=== PATIENT | male | born 1940 | race Caucasian/White ===

== ENCOUNTER → 2018-01-01 09:21 | Outpatient (CLI) | payer MEDICARE, SELFPAY ==
--- NOTE | 2018-01-01 09:32 | RAD_ITS ---
STUDY: X-RAY - RIGHT KNEE REASON FOR EXAM: Male, 77 years old. Right knee swelling. TECHNIQUE: 3 view(s) of the knee. COMPARISON: None. FINDINGS: Normal visualized distal femur. Normal visualized proximal tibia and fibula. Normal proximal tibiofibular articulation. There is moderate degenerative arthrosis of the medial femorotibial compartment with moderate joint space narrowing. . Normal patellofemoral articulation. There are faint calcifications projecting over the lateral femoral tibial compartment consistent with underlying chondrocalcinosis. There is soft tissue fullness overlying the patella and patellar tendon. There are peripheral calcifications. RAD/Knee 3 Views IMPRESSION: Atherosclerosis. Chondrocalcinosis. Electronically Signed: Sravanthi Garcia MD at 18:54 EDT Tel , Service support ,
== END ==
PROVIDERS: Family Provider Family Medicine; PCP Family Medicine; Visit Provider Family Medicine
DX: M25.461 Effusion, right knee (principal)
CPT/HCPCS: 73562

== ENCOUNTER → 2018-01-02 09:04 | Outpatient (CLI) | payer MEDICARE, SELFPAY ==
[2018-01-02 10:53] LABS: Anion Gap 5 (5-15); BUN 17 mg/dL (7-18); BUN/Creat Ratio 13.2 RATIO (10-20); Calcium,Total 8.9 mg/dL (8.5-10.1); Chloride 107 mmol/L (98-107); Creatinine, Serum 1.29 mg/dL (0.70-1.30); EST Glomerular Filtration Rate 57 mL/min (>60); Est Glom Filt Rate - Afr Amer 69 mL/min (>60); Glucose 89 mg/dL (74-106); PSA,Total - Annual Screen 2.71 ng/mL (0.00-4.00); Potassium 4.1 mmol/L (3.5-5.1); Sodium Level 140 mmol/L (136-145)
== END ==
PROVIDERS: Family Provider Family Medicine; PCP Family Medicine; Visit Provider Family Medicine
DX: Z00.00 Encounter for general adult medical examination without abnormal findings (principal); Z12.5 Encounter for screening for malignant neoplasm of prostate
CPT/HCPCS: 36415; 80048; 82306; 84153; G0103

== ENCOUNTER → 2018-03-14 16:48 | Outpatient (CLI) | payer MEDICARE, SELFPAY ==
[2018-03-14 18:18] LABS: Anion Gap 8 (5-15); BUN 23 mg/dL (7-18); BUN/Creat Ratio 16.7 RATIO (10-20); Calcium,Total 8.9 mg/dL (8.5-10.1); Chloride 107 mmol/L (98-107); Creatinine, Serum 1.38 mg/dL (0.70-1.30); EST Glomerular Filtration Rate 53 mL/min (>60); Est Glom Filt Rate - Afr Amer 64 mL/min (>60); Glucose 90 mg/dL (74-106); PSA,Total - Annual Screen 2.66 ng/mL (0.00-4.00); Potassium 4.1 mmol/L (3.5-5.1); Sodium Level 140 mmol/L (136-145)
== END ==
PROVIDERS: Family Provider Family Medicine; PCP Family Medicine; Visit Provider Family Medicine
DX: R35.8 Other polyuria (principal); Z12.5 Encounter for screening for malignant neoplasm of prostate
CPT/HCPCS: 36415; 80048; 84153; G0103

== ENCOUNTER → 2018-10-31 | Outpatient (CLI) | payer MEDICARE, SELFPAY ==
[2018-10-31 12:44] LABS: ALB/GLOB Ratio 1.4 RATIO (0.9-2.4); AST(SGOT) 22 U/L (15-37); Alanine Aminotransfer ALT/SGPT 22 U/L (16-61); Alkaline Phosphatase 66 U/L (45-117); Anion Gap 5 (5-15); BUN 18 mg/dL (7-18); BUN/Creat Ratio 15.1 RATIO (10-20); Calcium,Total 8.7 mg/dL (8.5-10.1); Chloride 107 mmol/L (98-107); Cholesterol 194 mg/dL (200); Creatinine, Serum 1.19 mg/dL (0.70-1.30); EST Glomerular Filtration Rate 63 mL/min (>60); Est Glom Filt Rate - Afr Amer 76 mL/min (>60); Globulin 2.9 g/dL (2.2-4.2); Glucose 80 mg/dL (74-106); High Density Lipoprotein 64 mg/dL; Potassium 4.5 mmol/L (3.5-5.1); Protein, Total 6.9 g/dL (6.4-8.2); Sodium Level 142 mmol/L (136-145); Triglycerides 54 mg/dL; Very Low Density Lipoprotein 11 mg/dL (5-40)
== END | disposition home or self-care (01) ==
LOC: MFPLAB 10:28
PROVIDERS: Family Provider Family Medicine; PCP Family Medicine; Referring Provider Family Medicine; Visit Provider Family Medicine
DX: Z00.00 Encounter for general adult medical examination without abnormal findings (principal)
CPT/HCPCS: 36415; 80053; 80061

== ENCOUNTER → 2019-12-17 09:07 | Outpatient (CLI) | payer MEDICARE, SELFPAY ==
[2019-12-17 10:36] LABS: Anion Gap 4 (5-15); BUN 16 mg/dL (7-18); BUN/Creat Ratio 14.4 RATIO (10-20); Chloride 109 mmol/L (98-107); Cholesterol 196 mg/dL (200); Creatinine, Serum 1.11 mg/dL (0.70-1.30); EST Glomerular Filtration Rate 68 mL/min (>60); Est Glom Filt Rate - Afr Amer 82 mL/min (>60); Glucose 91 mg/dL (74-106); High Density Lipoprotein 58 mg/dL; PSA,Total - Annual Screen 2.42 ng/mL (0.00-4.00); Sodium Level 141 mmol/L (136-145); Triglycerides 81 mg/dL; Very Low Density Lipoprotein 16 mg/dL (5-40)
== END ==
PROVIDERS: PCP Family Medicine; Referring Provider Family Medicine; Visit Provider Family Medicine
DX: Z00.00 Encounter for general adult medical examination without abnormal findings (principal); N52.9 Male erectile dysfunction, unspecified; N40.0 Benign prostatic hyperplasia without lower urinary tract symptoms; E55.9 Vitamin D deficiency, unspecified; Z12.5 Encounter for screening for malignant neoplasm of prostate
CPT/HCPCS: 36415; 80048; 80061; 84153; 84403; G0103

== ENCOUNTER 2020-12-07 18:31 | Emergency (ER) | payer MEDICARE, SELFPAY ==
[2020-12-07] VITALS (7 sets, daily range): BP systolic 153–201; BP diastolic 66–173; PULSE 60–78; RESP 15–23; TEMP 36–36.1; O2SAT 96–99; BMI 23.7
--- NOTE | 2020-12-07 18:35 | CM.ED ---
SOCIAL WORK Stroke Alert Responded to Stroke Alert. Patient in CT. Met with patient in room. Emotional support and education provided. This worker to remain available for needs. Shilpi Correa, [employer], AIRPORT ELECTRICIAN
--- NOTE | 2020-12-07 18:35 | CT_ITS ---
STUDY: CT HEAD STROKE PROTOCOL W/O CONTRAST INJECTION REASON FOR EXAM: Male, 80 years old. Neuro deficit, acute, stroke suspected RADIATION DOSAGE (If Supplied By Facility): CTDIvol = ( ) mGy, DLP = ( ) mGycm TECHNIQUE: Transaxial CT imaging of the brain was performed without administration of intravenous contrast material. Individualized dose optimization techniques were used for this CT. COMPARISON: No relevant priors. FINDINGS: Normal soft tissue structures. Normal calvarium. 15 x 12 x 10 mm acute hemorrhage of the left occipital lobe intraparenchymal. There are areas of decreased attenuation within the white matter tracts of the supratentorial brain, consistent with microvascular disease changes. Normal basal ganglia and thalami. Normal brainstem. Normal cerebellum. There are no findings of an acute ischemic infarction. CT/STROKE Brain/Head without Cont IMPRESSION: 15 x 10 x 12 mm acute intraparenchymal hemorrhage of the left occipital lobe. Otherwise chronic small vessel ischemic changes without other acute pulmonary findings. N.B. : The above information has been verbally conveyed by Xena Palma MD to Manolo Rosenbaum on 12/07/2020 18:47:41 (ET). Electronically Signed: Xena Palma MD at 18:49 EDT , Service support ,
--- NOTE | 2020-12-07 18:35 | RAD_ITS ---
STUDY: X-RAY CHEST REASON FOR EXAM: Male, 80 years old. Neuro deficit, acute, stroke suspected TECHNIQUE: 1 view COMPARISON: None. FINDINGS: The lungs are clear and expanded. There is no demonstrated pleural abnormality. Normal size heart. Normal mediastinum and viry. Normal visualized pulmonary arteries. There is atherosclerotic calcification of the aortic arch with tortuosity. Normal visualized thoracic spine. Normal visualized ribs, clavicles, and shoulders. There is no demonstrated abnormality of the visualized soft tissue structures of the upper abdomen. RAD/Chest 1 View IMPRESSION: No acute cardiopulmonary findings. Electronically Signed: Xena Palma MD at 19:37 EDT , Service support ,
--- NOTE | 2020-12-07 18:35 | EKG12_ITS ---
Test Reason : NEURO Blood Pressure : / mmHG Vent. Rate : 058 BPM Atrial Rate : 058 BPM P-R Int : 188 ms QRS Dur : 080 ms QT Int : 418 ms P-R-T Axes : 038 006 057 degrees QTc Int : 410 ms Sinus bradycardia with Premature atrial complexes Nonspecific ST abnormality Abnormal ECG Confirmed by FREDERICK FRENCH, WEN ([id number]), editor newspaper SUSU RIVERA ([id number]) on 12/08/2020 12:59:08 PM Referred By: BENJAMIN Confirmed By:OMER MACK MD
--- NOTE | 2020-12-07 18:35 | ED.RN ---
NO OLD EKGS IN MUSE
[2020-12-07 18:40] LABS: Absolute Lymphocyte Count 1.97 X10^3/uL (0.83-4.51); Absolute Neutrophil Count 3.2 X10^3/uL (2.0-7.7); Basophil# 0.04 X10^3/uL; Basophil% 0.7 % (0-1); Eosinophil# 0.27 X10^3/uL; Eosinophils% 4.5 % (0-5); Hematocrit 43.7 % (40-54); Hemoglobin 14.5 g/dL (13.0-16.5); Lymphocyte # 1.97 X10^3/ul (0.83-4.51); Lymphocyte % 32.8 % (19-41); Mean Corp Hgb Conc 33.2 g/dL (32-36); Mean Corpuscular Hgb 32.3 pg (27.0-32.0); Mean Corpuscular Volume 97.3 fL (80-94); Mean Platelet Vol. 11.5 fl (6.2-12.0); Monocyte# 0.57 X10^3/uL; Monocyte% 9.5 % (0-10); NRBC Flagged by Analyzer 0 % (0-5); Neutrophil # 3.15 X10^3/uL (2.7-7.7); Neutrophil % 52.3 % (47-70); Platelet Count 176 K/mm3 (150-450); RBC Distribution Width CV 12.8 % (11.6-14.6); Red Blood Count 4.49 M/mm3 (4.6-6.2)
[2020-12-07 18:41] LABS: Bedside Glucose 101 mg/dL (70-110)
[2020-12-07] MEDS: Nicardipine HCl-0.9% Sod Chlor 20 MG/200 ML IV.SOLN 50 MG IV (19:03)
--- NOTE | 2020-12-07 19:14 | ED.VIS.STROK ---
HPI History of Present Illness Chief Complaint: Neuro S/Sx Informant: patient Onset/Context/Timing Onset: Hours (3) Context: Sudden Onset Timing: Continuous Quality and Location: Positive for - (Headache and difficulty reading) Worsened by: Nothing Relieved by: Nothing Associated Symptoms Associated Symptoms: Positive for Headache; Negative for Nausea and Vomiting Narrative Narrative: Patient presents with headache and difficulty reading that began today. Patient states this began approximately 3 hours prior to arrival. Patient states he was riding a skid steer doing some loading when he felt sudden onset of a headache. Patient states that he went home and tried to read something. Patient states he was having difficulty reading the right side of the page. Patient also states that while he was driving he thought he saw a red light in the distance. Patient states that this went away. Patient states that as he came up to it the red light reappeared. Patient denies any facial paresthesias or weakness. Patient denies any extremity paresthesias or weakness. [facility] Medical History Dementia Skin cancer Skin cancer (melanoma) Allergy/AdvReac Type Severity Reaction Status Date / Time No Known Allergies Allergy Verified 12/07/20 18:47 Social History Smoking Status: Never smoker ROS ROS ED Constitutional Constitutional ED: Denies chills or fever(s) Eyes Eyes: Reports change in vision ENT ENT ED: Denies rhinorrhea or sore throat Cardiovascular Cardiovascular: Denies chest pain or palpitations Respiratory/Chest Respiratory/Chest: Denies cough or dyspnea Gastrointestinal Gastrointestinal: Denies nausea or vomiting Genitourinary Genitourinary ED: Denies dysuria or hematuria Musculoskeletal Musculoskeletal: Denies back pain or neck pain Integumentary Denies abscess or rash Neurologic Neurologic: Reports headache(s); Denies weakness Allergic/Immunologic Allergic/Immunologic ED: Denies mouth swelling or urticaria EXAM Physical Exam Const Vital Signs: 12/07/20 18:35 12/07/20 18:47 12/07/20 18:49 Temperature 96.9 F L 96.9 F L Temperature Source Temporal Temporal Pulse Rate 78 60 Respiratory Rate 19 H 19 H Blood Pressure 188/173 H 188/173 H Blood Pressure Mean 178 178 Pulse Ox 99 99 Oxygen Delivery Method Room Air Room Air Room Air 12/07/20 19:03 12/07/20 19:04 12/07/20 19:15 Temperature 96.8 F L Temperature Source Temporal Pulse Rate 63 74 72 Respiratory Rate 15 17 23 H Blood Pressure 201/94 H 201/94 H 153/69 H Blood Pressure Mean 129 129 97 Pulse Ox 99 98 96 Oxygen Delivery Method Room Air Room Air Room Air 12/07/20 19:30 12/07/20 19:45 Temperature Temperature Source Pulse Rate 73 78 Respiratory Rate 17 15 Blood Pressure 157/66 H 157/66 H Blood Pressure Mean 96 96 Pulse Ox 96 96 Oxygen Delivery Method Room Air Positive well nourished and well developed General Appearance ED: well developed HEENT Reports moist mucous membranes Eyes PERRL and EOMs intact bilaterally Neck supple and no JVD Resp normal respiratory effort and clear to auscultation bilaterally Cardio Rate: regular rate Rhythm: regular rhythm GI normal to inspection, nondistended, normoactive bowel sounds, soft to palpation and non-tender Extremity normal to inspection General Extremety ED: Negative for deformity, edema or tenderness General Extremity: Negative for deformity or edema Neuro oriented x3, CN's II-XII intact bilaterally and no sensory deficits noted Neuro Narrative: Patient had slight difficulty reading sentences on the NIH scale. Sensorium / Orientation: alert Speech: speech normal Motor Exam: strength 5/5 throughout Psych mental status grossly normal STROKE Vital Signs/Narrative: Vital Signs Temp Pulse Resp BP Pulse Ox 12/07/20 19:04 74 17 201/94 H 98 12/07/20 19:03 96.8 F L 63 15 201/94 H 99 12/07/20 18:47 96.9 F L 60 19 H 188/173 H 99 Inital Vital Signs reviewed: Yes MDM MDM MDM Narrative Medical decision making narrative: Stroke team was initiated. Patient had an NIH stroke scale of 1. Blood pressure was elevated at 201/94. Patient was started on a Cardene drip. CT scan of the brain was obtained. There is a left occipital intraparenchymal hematoma. This was interpreted by the radiologist and reviewed by myself. Patient was evaluated by stroke neurologist from [facility]. He recommended transferring the patient there because of the bleed. Patient will be transferred by ground transport because of weather. Patient and spouse is agreeable with transfer. Patient will be transferred to the emergency department [facility]. Lab Data Attestation: I reviewed the patient's lab results. Labs: Laboratory Results - last 24 hr 12/07/20 12/07/20 12/07/20 18:33 18:33 18:33 WBC 6.0 RBC 4.49 L Hgb 14.5 Hct 43.7 MCV 97.3 H MCH 32.3 H MCHC 33.2 RDW Std Deviation 46.0 H RDW Coeff of [place] 12.8 Plt Count 176 MPV 11.5 Immature Gran % (Auto) 0.200 Neut % (Auto) 52.3 Lymph % (Auto) 32.8 [place] % (Auto) 9.5 Eos % (Auto) 4.5 Baso % (Auto) 0.7 Absolute Neuts (auto) 3.2 Absolute Lymphs (auto) 1.97 Nucleated RBC % 0 PT Cancelled INR Cancelled APTT Cancelled Sodium Cancelled Potassium Cancelled Chloride Cancelled Carbon Dioxide Cancelled Anion Gap Cancelled BUN Cancelled Creatinine Cancelled Estim Creat Clear Calc Cancelled Est GFR (MDRD) Af Amer Cancelled Est GFR (MDRD) Non-Af Cancelled BUN/Creatinine Ratio Cancelled Glucose Cancelled Calcium Cancelled Troponin I Cancelled POC Glucose 12/07/20 12/07/20 12/07/20 18:34 18:47 18:58 WBC RBC Hgb Hct MCV MCH MCHC RDW Std Deviation RDW Coeff of [place] Plt Count MPV Immature Gran % (Auto) Neut % (Auto) Lymph % (Auto) [place] % (Auto) Eos % (Auto) Baso % (Auto) Absolute Neuts (auto) Absolute Lymphs (auto) Nucleated RBC % PT 13.5 INR 1.1 APTT 33.0 Sodium 141 Potassium 3.8 Chloride 107 Carbon Dioxide 30.0 Anion Gap 4 L BUN 18 Creatinine 1.17 Estim Creat Clear Calc 55.27 Est GFR (MDRD) Af Amer 77 Est GFR (MDRD) Non-Af 64 BUN/Creatinine Ratio 15.4 Glucose 101 Calcium 8.9 Troponin I < 0.015 POC Glucose 101 Radiography Diagnostic Testing: Radiology Impression Brain CT 12/07/20 18:35 IMPRESSION: 15 x 10 x 12 mm acute intraparenchymal hemorrhage of the left occipital lobe. Otherwise chronic small vessel ischemic changes without other acute pulmonary findings. N.B. : The above information has been verbally conveyed by Xena M. Minerva, MD to Manolo Rosenbaum on 12/07/2020 18:47:41 (ET). Electronically Signed: Xena Palma MD at 18:49 EDT , Service support , ADDENDUM: 12/07/20 1856 IMPRESSION: 15 x 10 x 12 mm acute intraparenchymal hemorrhage of the left occipital lobe. Otherwise chronic small vessel ischemic changes without other acute pulmonary findings. N.B. : The above information has been verbally conveyed by Xena Palma MD to Manolo Rosenbaum on 12/07/2020 18:47:41 (ET). Electronically Signed: Xena Palma MD at 18:49 EDT , Service support , Chest X-Ray 12/07/20 18:35 IMPRESSION: No acute cardiopulmonary findings. Electronically Signed: Xena Palma MD at 19:37 EDT , Service support , EKG Initial EKG: Attestation: I personally reviewed and interpreted this EKG as follows: Interpretation: Sinus Bradycardia (58) and Non-Specific ST Changes Prior EKG tracings: not available for review Stroke Documentation Questions Stroke Team Activated: Yes Reviewed Inclusion/Exclusion criteria: Yes Was Patient considered for Endovascular Intervention?: No IV Alteplase (t-PA) Administered: No No contraindications for IV Alteplase (t-PA) administration.: No Alteplase (t-PA) risks, benefits, alternative discussed: No Critical Care Time Critical Care Time: Yes Critical care time (excluding procedures): 30-74 minutes (37 minutes), Discussing w/Patient &/or Family/Repair Miller, Discussing w/Consultants, Arranging Admission or Transfer and Performing Direct Patient Care at Bedside Discharge Plan Triage Chief Complaint: Neuro S/Sx ED Provider: Manolo Rosenbaum Dx/Rx/DC Orders Clinical Impression: Intraparenchymal hematoma of brain Primary Care Provider: Osbaldo Bennett Referrals: Osbaldo Bennett MD [Primary Care Provider] - Disposition Disposition: Acute Care Hospital Discharge Location: [facility] Discharge Date/Time: 12/07/20 19:45
[2020-12-07 19:27] LABS: Anion Gap 4 (5-15); BUN 18 mg/dL (7-18); BUN/Creat Ratio 15.4 RATIO (10-20); Calcium,Total 8.9 mg/dL (8.5-10.1); Chloride 107 mmol/L (98-107); Creatinine, Serum 1.17 mg/dL (0.70-1.30); EST Glomerular Filtration Rate 64 mL/min (>60); Est Glom Filt Rate - Afr Amer 77 mL/min (>60); Estimated Creatinine Clearance 55.27 ml/min; Glucose 101 mg/dL (74-106); Potassium 3.8 mmol/L (3.5-5.1); Sodium Level 141 mmol/L (136-145)
[2020-12-07 19:50] LABS: International Normalized Ratio 1.1; Prothrombin Time (Protime)PT. 13.5 SECONDS (11.7-14.9)
--- NOTE | 2020-12-07 19:52 | ED.RN ---
1914-report given to transport squad. cardene back down to 5mg d/t bp withing goal of <160. pt with nih 1 still and reported that rt sided difficulty reading is better than earlier. family here and directions given for [facility]. transfer consent given to pt's . vs stable.
== END 2020-12-07 19:45 | disposition short-term general hospital (02) ==
PROVIDERS: Emergency Provider Emergency Medicine; PCP Family Medicine
DX: I61.8 Other nontraumatic intracerebral hemorrhage (principal); H53.8 Other visual disturbances; R29.701 NIHSS score 1; F03.90 Unspecified dementia, unspecified severity, without behavioral disturbance, psychotic disturbance, mood disturbance, and anxiety; Z85.820 Personal history of malignant melanoma of skin
CPT/HCPCS: 70450; 71045; 80048; 82962; 84484; 85025; 85610; 85730; 93005; 96365; 99285; A4216

== ENCOUNTER 2021-12-24 17:03 | Observation (INO) | payer MEDICARE, SELFPAY ==
[2021-12-24] VITALS (8 sets, daily range): BP systolic 132–148; BP diastolic 63–78; PULSE 52–64; RESP 14–22; TEMP 36.4–37.2; O2SAT 97–100; BMI 21.9; BMI 21.8
--- NOTE | 2021-12-24 17:18 | EKG12_ITS ---
Test Reason : SYNCOPE Blood Pressure : / mmHG Vent. Rate : 057 BPM Atrial Rate : 057 BPM P-R Int : 188 ms QRS Dur : 084 ms QT Int : 438 ms P-R-T Axes : 063 025 037 degrees QTc Int : 426 ms Sinus bradycardia with sinus arrhythmia Otherwise normal ECG Confirmed by PAM FRENCH, AUGUSTIN ([id number]), film and video editor TREVOR JACKSON ([id number]) on 12/25/2021 10:17:12 AM Referred By: YRIS Confirmed By:AUGUSTIN OROZCO MD
--- NOTE | 2021-12-24 17:18 | CT_ITS ---
STUDY: CT BRAIN WITHOUT CONTRAST REASON FOR EXAM: Male, 81 years old. head injury, headache RADIATION DOSAGE (If Supplied By Facility): CTDIvol = ( 44.99 ) mGy, DLP = ( 846.73 ) mGycm TECHNIQUE: Transaxial CT imaging of the brain was performed without administration of intravenous contrast material. Individualized dose optimization techniques were used for this CT. COMPARISON: 12/07/2020 FINDINGS: Normal soft tissue structures. Normal calvarium. There is moderate cerebral atrophy with widening of the extra-axial spaces and ventricular dilatation. There are areas of decreased attenuation within the white matter tracts of the supratentorial brain, consistent with microvascular disease changes. There are small punctate calcifications of the basal ganglia which are seen in the aging brain as a normal variant. Normal brainstem. Normal cerebellum. There is no intracranial hemorrhage. There are no findings of an acute ischemic infarction. Normal visualized paranasal sinuses. CT/Brain/Head without Contrast IMPRESSION: Chronic involutional changes of the brain. Electronically Signed: Bhupinder Shaikh MD at 18:15 EDT ,
--- NOTE | 2021-12-24 17:18 | CT_ITS ---
STUDY: CT CERVICAL SPINE WITHOUT CONTRAST REASON FOR EXAM: Male, 81 years old. falls, neck pain RADIATION DOSAGE (If Supplied By Facility): CTDIvol = ( 21.54 ) mGy, DLP = ( 458.69 ) mGycm TECHNIQUE: High resolution transaxial imaging was performed without contrast material. Sagittal and coronal images were reconstructed. Individualized dose optimization techniques were used for this CT. COMPARISON: None FINDINGS: Normal craniovertebral junction. There are degenerative changes of the anterior atlantoaxial articulation. Normal odontoid process. Normal cervical lordosis. Normal vertebral bodies and posterior osseous elements. C2-3: Moderate left facet hypertrophy produces mild left neural foraminal stenosis. No central spinal stenosis. C3-4: 2 mm retrolisthesis of C3 on C4 produces mild spinal stenosis and mild bilateral neural foraminal stenosis. C4-5: Normal endplates. Normal disc height and morphology. Normal central canal and intervertebral neuroforamina. C5-6: Normal endplates. Normal disc height and morphology. Normal central canal and intervertebral neuroforamina. C6-7: Normal endplates. Normal disc height and morphology. Normal central canal and intervertebral neuroforamina. C7-T1: Normal endplates. Normal disc height and morphology. Normal central canal and intervertebral neuroforamina. Normal visualized soft tissue structures. CT/Spine Cervical without Contras IMPRESSION: No acute fracture or subluxation. Electronically Signed: Bhupinder Shaikh MD at 18:21 EDT ,
--- NOTE | 2021-12-24 17:27 | EDS_ITS ---
HPI History of Present Illness Chief Complaint: General Illness Narrative Narrative: 81-year-old male presenting with 4 episodes of syncope over the last 24 hours. He states he had had a previous episode of syncope distantly and had a work-up in emergency room but was told everything was normal. Last week while out of town he had an episode of syncope as well. He tells me that at least twice his told him he passed out and he woke him up on the floor. He states has been constipated for the last 8 days and been trying to have a bowel movement but he does not feel as if he straining very hard. He called his primary care doctor yesterday who told him to take magnesium citrate and he was able to have a bowel movement today but still has episodes of syncope. He tested positive for COVID, but when I asked him how long he has been sick he states he is not sick. He denies a cough or fever. He does admit to some chills. He denies headache, chest pain, shortness of breath. His states he takes a blood pressure pill, a brain pill and something else. [facility] Medical History Dementia Skin cancer Skin cancer (melanoma) Allergy/AdvReac Type Severity Reaction Status Date / Time No Known Allergies Allergy Verified 12/24/21 17:03 Social History Smoking Status: Never smoker [facility] ED Constitutional Constitutional ED: Reports chills; Denies fever(s) or sweats Eyes Eyes: Denies change in vision or diplopia ENT ENT ED: Denies rhinorrhea Cardiovascular Cardiovascular: Denies chest pain or palpitations Respiratory/Chest Respiratory/Chest: Denies cough or dyspnea Gastrointestinal Gastrointestinal: Reports abdominal pain and constipation Genitourinary Genitourinary ED: Denies dysuria or hematuria Musculoskeletal Musculoskeletal: Denies myalgias Integumentary Denies abscess Neurologic Neurologic: Denies headache(s) Psychiatric Psychiatric: Denies anxiety or depression EXAM Physical Exam Const Vital Signs: 12/24/21 17:04 12/24/21 17:32 12/24/21 17:32 Temperature 97.6 F L Temperature Source Temporal Pulse Rate 61 Respiratory Rate 14 Respiratory Effort Normal Non-Labored Respiratory Pattern Normal Blood Pressure 138/66 H Blood Pressure Mean 90 Pulse Ox 97 100 Oxygen Delivery Method Room Air Room Air 12/24/21 17:08 12/24/21 18:08 12/24/21 19:06 Temperature 97.6 F L 98 F 97.9 F Temperature Source Temporal Temporal Temporal Pulse Rate 61 57 L 54 L Respiratory Rate 14 18 22 H Respiratory Effort Respiratory Pattern Blood Pressure 138/66 H 143/64 H 132/68 H Blood Pressure Mean 90 89 Pulse Ox 100 97 98 Oxygen Delivery Method Room Air Room Air Room Air Positive well nourished General Appearance ED: NAD; Negative for pallor HEENT Reports moist mucous membranes Negative for trauma Eyes PERRL and EOMs intact bilaterally Chest Wall inspection of chest normal and palpation of chest normal Resp normal respiratory effort and clear to auscultation bilaterally Auscultation: Negative for rales, rhonchi or wheezes Cardio regular rate and regular rhythm GI normal to inspection, nondistended, normoactive bowel sounds Neuro oriented x3, CN's II-XII intact bilaterally and no sensory deficits noted Motor Exam: strength 5/5 throughout Psych mental status grossly normal Skin no rashes or lesions noted General Skin Exam: Negative for jaundice or pallor MDM MDM MDM Narrative Medical decision making narrative: Patient presenting with several episodes of syncope over the last week and a half with more of them happening today. It is possible that the constipation issue that he is reporting and having taken magnesium citrate may be contributed to vasovagal syncope however he has fainted 4 times today. He denies headache, shortness of breath, chest pain, neck pain. He does state that he tested positive for COVID-19 but does not have any fever, chills, cough. I did obtain blood work and his CBC is within normal limits. Creatinine slightly elevated over previous at 1.31 but otherwise electrolytes are normal. High-sensitivity troponin is 3. D-dimer is normal when age-adjusted. EKG on my interpretation shows a sinus bradycardia with a ventricular rate of 57 bpm without sign of ischemic change. Chest x-ray shows no acute cardiopulmonary process on my interpretation and the radiologist does agree. Because of the fainting episodes I did do a CT of the brain and the cervical spine and these are both negative for acute findings as well. Given the multiple episodes of syncope but the patient has had I believe he does need to be admitted for observation. I did send for formal COVID test for him but his blood work and symptoms are necessarily consistent with this. Impression: 1. Syncope 2. Constipation Lab Data Attestation: I reviewed the patient's lab results. Labs: Laboratory Results - last 24 hr 12/24/21 12/24/21 12/24/21 17:15 17:15 17:15 WBC 8.7 RBC 4.37 L Hgb 14.5 Hct 42.2 MCV 96.6 H MCH 33.2 H MCHC 34.4 RDW Std Deviation 45.1 H RDW Coeff of [place] 12.6 Plt Count 150 MPV 11.1 Immature Gran % (Auto) 0.600 Neut % (Auto) 66.1 Lymph % (Auto) 19.3 [place] % (Auto) 12.0 H Eos % (Auto) 1.5 Baso % (Auto) 0.5 Absolute Neuts (auto) 5.8 Absolute Lymphs (auto) 1.68 Nucleated RBC % 0 D-Dimer Quant (PE/DVT) 0.51 H* Sodium 136 Potassium 3.6 Chloride 100 Carbon Dioxide 27.0 Anion Gap 9 BUN 15 Creatinine 1.31 H Estim Creat Clear Calc 45.79 Est GFR (MDRD) Af Amer 67 Est GFR (MDRD) Non-Af 56 L BUN/Creatinine Ratio 11.5 Glucose 145 H Calcium 9.2 Troponin I High Sens 3 Radiography Diagnostic Testing: Clinical Impression(s) from Imaging Studies Brain CT 12/24/21 17:18 IMPRESSION: Chronic involutional changes of the brain. Electronically Signed: Bhupinder Shaikh MD at 18:15 EDT Reading Location ID and State: [id number] / [place] Tel , Service support , Cervical Spine CT 12/24/21 17:18 IMPRESSION: No acute fracture or subluxation. Electronically Signed: Bhupinder Shaikh MD at 18:21 EDT , Chest X-Ray 12/24/21 17:45 IMPRESSION: Normal x-ray examination of the chest. Electronically Signed: Bhupinder Shaikh MD at 18:23 EDT , Discharge Plan Triage Chief Complaint: General Illness ED Provider: Jarrett Edgar Dx/Rx/DC Orders Primary Care Provider: Osbaldo Bennett Referrals: Osbaldo Bennett MD [Primary Care Provider] -
[2021-12-24] MEDS: 0.9% Normal Saline 1,000 ML 1000 ML IV (17:31)
[2021-12-24] MEDS: Ondansetron 4 MG/2 ML Vial IV (17:31)
[2021-12-24 17:33] LABS: Absolute Lymphocyte Count 1.68 X10^3/uL (0.83-4.51); Absolute Neutrophil Count 5.8 X10^3/uL (2.0-7.7); Basophil# 0.04 X10^3/uL; Basophil% 0.5 % (0-1); Eosinophil# 0.13 X10^3/uL; Eosinophils% 1.5 % (0-5); Hematocrit 42.2 % (40-54); Hemoglobin 14.5 g/dL (13.0-16.5); Lymphocyte # 1.68 X10^3/ul (0.83-4.51); Lymphocyte % 19.3 % (19-41); Mean Corp Hgb Conc 34.4 g/dL (32-36); Mean Corpuscular Hgb 33.2 pg (27.0-32.0); Mean Corpuscular Volume 96.6 fL (80-94); Mean Platelet Vol. 11.1 fl (6.2-12.0); Monocyte# 1.05 X10^3/uL; NRBC Flagged by Analyzer 0 % (0-5); Neutrophil # 5.77 X10^3/uL (2.7-7.7); Neutrophil % 66.1 % (47-70); Platelet Count 150 K/mm3 (150-450); RBC Distribution Width CV 12.6 % (11.6-14.6); RBC Distribution Width SD 45.1 fl (35.1-43.9); Red Blood Count 4.37 M/mm3 (4.6-6.2); White Blood Count 8.7 K/mm3 (4.4-11.0)
--- NOTE | 2021-12-24 17:45 | RAD_ITS ---
STUDY: X-RAY CHEST REASON FOR EXAM: Male, 81 years old. chest pain TECHNIQUE: Single AP portable view of the chest. COMPARISON: 12/07/2020 FINDINGS: The lungs are clear and expanded. There is no demonstrated pleural abnormality. Normal size heart. Normal mediastinum and viry. Normal visualized pulmonary arteries. Normal visualized aortic arch and descending thoracic aorta. Normal visualized thoracic spine. Normal visualized ribs, clavicles, and shoulders. There is no demonstrated abnormality of the visualized soft tissue structures of the upper abdomen. RAD/Chest 1 View (Portable) IMPRESSION: Normal x-ray examination of the chest. Electronically Signed: Bhupinder Shaikh MD at 18:23 EDT ,
[2021-12-24 17:48] LABS: D-Dimer Quantitative (DVT/PE) 0.51 FEU/ug/m (0.27-0.49)
[2021-12-24 17:55] LABS: Anion Gap 9 (5-15); BUN 15 mg/dL (7-18); BUN/Creat Ratio 11.5 RATIO (10-20); Calcium,Total 9.2 mg/dL (8.5-10.1); Chloride 100 mmol/L (98-107); Creatinine, Serum 1.31 mg/dL (0.70-1.30); EST Glomerular Filtration Rate 56 mL/min (>60); Est Glom Filt Rate - Afr Amer 67 mL/min (>60); Estimated Creatinine Clearance 45.79 ml/min; Glucose 145 mg/dL (74-106); Potassium 3.6 mmol/L (3.5-5.1); Sodium Level 136 mmol/L (136-145); Troponin-I HS (w/2H Reflex) 3 pg/mL (3.0-78.0)
[2021-12-24 19:30] LABS: Reflex Troponin-HS? (from REC) Y
[2021-12-24 20:07] LABS: Troponin-I HS 4 pg/mL (3.0-78.0)
--- NOTE | 2021-12-24 20:15 | HP.PCM.HOS_ITS ---
HPI - General General Date of Admission: 12/24/21 Date of Service: 12/24/21 Chief Complaint: Syncope HPI Narrative NADIR GARCIA, is a 81 M who presents with syncopal episodes. Patient had several today. Witnessed by his for the patient to be sitting in a chair and then go unresponsive and then come to and about 30 seconds. No tonic-clonic activity was noted. Patient had similar episodes about 2 years ago than a year prior. Patient did have a history of intracranial hemorrhage which was treated to his high blood pressure without several years ago. Patient his recent come back from [place] and actually drove home from the airport yesterday. Had not been feeling well with a sore throat. Did have a COVID test at home that was positive. Patient has been constipated recently and had a period time where he had not had a bowel movement about 8 days. Has taken some medication he is subsequent been having bowel movements. Has not been feeling well after going to the restroom is not passing out in the restroom per his description. [facility] Medical History Dementia Skin cancer Skin cancer (melanoma) Allergy/AdvReac Type Severity Reaction Status Date / Time No Known Allergies Allergy Verified 12/24/21 17:03 no significant family history (no CAD) Social History (Updated 12/24/21 @ 20:[address] Manolo Garcia DO) Smoking Status: Never smoker alcohol intake: never substance use type: does not use ROS ROS Narrative Forgetful according to his but not formally diagnosed with dementia. All review of systems were negative except as mentioned above in the history of present illness and the other review of systems. Vital Signs Vital Signs Vital Signs: 12/24/21 17:04 12/24/21 17:32 12/24/21 17:32 Temperature 36.4 C L Temperature Source Temporal Pulse Rate 61 Respiratory Rate 14 Respiratory Effort Normal Non-Labored Respiratory Pattern Normal Blood Pressure 138/66 H Blood Pressure Mean 90 Pulse Ox 97 100 Oxygen Delivery Method Room Air Room Air 12/24/21 17:08 12/24/21 18:08 12/24/21 19:06 Temperature 36.4 C L 36.6 C 36.6 C Temperature Source Temporal Temporal Temporal Pulse Rate 61 57 L 54 L Respiratory Rate 14 18 22 H Respiratory Effort Respiratory Pattern Blood Pressure 138/66 H 143/64 H 132/68 H Blood Pressure Mean 90 89 Pulse Ox 100 97 98 Oxygen Delivery Method Room Air Room Air Room Air 12/24/21 19:27 Temperature 37.2 C Temperature Source Temporal Pulse Rate 56 L Respiratory Rate 14 Respiratory Effort Respiratory Pattern Blood Pressure 133/63 H Blood Pressure Mean 86 Pulse Ox 98 Oxygen Delivery Method Room Air Weight Weight: 73.2 kg Body Mass Index (BMI) 21.9 Physical Exam Const alert and no apparent distress HEENT normocephalic and head/scalp atraumatic Eyes PERRL and EOMs intact bilaterally Neck no lymphadenopathy and no carotid bruits Resp normal respiratory effort, no retractions and no use of accessory muscles Cardio regular rate, regular rhythm, S1 normal heart sound and S2 normal heart sound GI normal to inspection, nondistended, normoactive bowel sounds, soft to palpation, non-tender and non-distended Extremity normal to inspection Neuro oriented x3, CN's II-XII intact bilaterally, moves all extremities and no focal motor deficits Sensorium / Orientation: awake and alert Speech: speech normal Motor Exam: strength 5/5 throughout Psych affect normal Results Lab / Micro Data Attestation: I reviewed the patient's lab results. Result Diagrams: 12/24/21 17:15 12/24/21 17:15 Labs: Laboratory Results - last 24 hr 12/24/21 17:15: WBC 8.7, RBC 4.37 L, Hgb 14.5, Hct 42.2, MCV 96.6 H, MCH 33.2 H, MCHC 34.4, RDW Std Deviation 45.1 H, RDW Coeff of [place] 12.6, Plt Count 150, MPV 11.1, Immature Gran % (Auto) 0.600, Neut % (Auto) 66.1, Lymph % (Auto) 19.3, [place] % (Auto) 12.0 H, Eos % (Auto) 1.5, Baso % (Auto) 0.5, Absolute Neuts (auto) 5.8, Absolute Lymphs (auto) 1.68, Nucleated RBC % 0 12/24/21 17:15: Sodium 136, Potassium 3.6, Chloride 100, Carbon Dioxide 27.0, Anion Gap 9, BUN 15, Creatinine 1.31 H, Estim Creat Clear Calc 45.79, Est GFR (MDRD) Af Amer 67, Est GFR (MDRD) Non-Af 56 L, BUN/Creatinine Ratio 11.5, Glucose 145 H, Calcium 9.2, Troponin I High Sens 3 12/24/21 17:15: D-Dimer Quant (PE/DVT) 0.51 H* 12/24/21 19:42: Troponin I High Sens 4 Micro: Microbiology 12/24/21 18:58 Nasal Secretion SARS-CoV-2 & FLU Antigen (Rapid) - Final SARS-CoV-2 (COVID 19) EKG Initial EKG: Attestation: I personally reviewed and interpreted this EKG as follows: Prior EKG tracings: available for review EKG Rhythm Intrepretation: Sinus Bradycardia Radiology Impression Brain CT 12/24/21 17:18 IMPRESSION: Chronic involutional changes of the brain. Electronically Signed: Bhupinder Shaikh MD at 18:15 EDT Reading Location ID and State: [employer] / [employer] , Service support , Cervical Spine CT 12/24/21 17:18 IMPRESSION: No acute fracture or subluxation. Electronically Signed: Bhupinder Shaikh MD at 18:21 EDT Reading Location ID and State: [employer] / [employer] , Service support , Chest X-Ray 12/24/21 17:45 IMPRESSION: Normal x-ray examination of the chest. Electronically Signed: Bhupinder Shaikh MD at 18:23 EDT Reading Location ID and State: [email or web address] / [employer] , Service support , Assessment & Plan Assessment/Plan (1) Syncope: PLAN: Suspect vasovagal. Discussed with the patient and his that I do not feel that this is seizures be any comes to relatively quickly. This began when he recently. Check orthostatic vital signs Patient did receive IV fluids in the emergency room and will often additional IV fluids. Check 2D echocardiogram (2) COVID-19: PLAN: Patient has been vaccinated but not yet boosted Other than some upper respiratory symptoms, patient is otherwise fairly asymptomatic. No treatment at this time. PLAN: Plan Hypertension: Patient is on HCTZ as well as lisinopril. Check orthostatic vital signs. May need to adjust those medications. Constipation: Patient was having issues with constipation prior to this but since had a bowel movements after taking magnesium citrate. VTE prophylaxis: Not indicated given observation status CODE STATUS: Patient wished to be full code. Case discussed with the patient's at bedside. Charges/Coding Visit Charges Inpatient E&M: 86171 Init Hosp L3
--- NOTE | 2021-12-24 20:17 | ECHOD_ITS ---
Reason For Study: Syncope Procedure This was a 2D Doppler, Color Flow transthoracic echocardiogram. Exam performed portable in patient room. Left Ventricle Normal LV size. Left ventricular systolic function is normal. The estimated ejection fraction is 60 %. Normal diastology for age. No regional wall motion abnormalities noted. Right Ventricle Normal RV size. Normal systolic function. Atria Normal left atrium. Normal right atrium. Mitral Valve Normal mitral valve. Tricuspid Valve Normal tricuspid valve. Mild tricuspid valve insufficiency. Pulmonary artery systolic pressure is 30 mmHg. Aortic Valve Trisinus/trileaflet aortic valve. Pulmonic Valve Normal pulmonic valve. Great Vessels Normal aortic root. The pulmonary artery is normal size. Normal inferior vena cava. Pericardium/Pleural No pericardial effusion. MMode/2D Measurements & Calculations LVIDd: 4.7 cm IVSd: 1.1 cm Ao root diam: 3.1 cm LVIDs: 3.0 cm LVPWd: 1.1 cm RVDd: 3.7 cm FS: 35.1 % LAV(MOD-bp): 53.6 ml LVAd ap4: 25.5 cm2 SV(MOD-sp4): 50.8 ml LAV(MOD-bp) Indexed: 27.6 ml/m2 LVLd ap4: 7.3 cm LAV(MOD-sp2): 71.4 ml EDV(MOD-sp4): 78.4 ml LAV(MOD-sp4): 39.5 ml EDV(sp4-el): 76.1 ml LVAs ap4: 13.8 cm2 LVLs ap4: 6.3 cm ESV(MOD-sp4): 27.6 ml ESV(sp4-el): 25.5 ml EF(MOD-sp4): 64.8 % EF(sp4-el): 66.5 % SV(sp4-el): 50.5 ml LA A4 area: 15.8 cm2 LA dimension(2D): 4.2 cm RA A4 area: 19.6 cm2 Doppler Measurements & Calculations MV E max germain: 52.5 cm/sec Lat Peak E' Germain: 10.6 cm/sec Med Peak E' Germain: 5.7 cm/sec MV A max germain: 52.5 cm/sec E/E' lat: 4.9 E/E' med: 9.2 MV E/A: 1.0 Ao V2 max: 185.0 cm/sec LV V1 max: 134.8 cm/sec PA V2 max: 82.8 cm/sec Ao max P.7 mmHg LV V1 max P.3 mmHg TR max germain: 257.4 cm/sec TR max P.6 mmHg ECHO/Echo Complete Interpretation Summary Normal LV size. Left ventricular systolic function is normal. The estimated ejection fraction is 60 %. Pulmonary artery systolic pressure is 30 mmHg. Normal diastology for age. Ordering Physician: Manolo Garcia Referring Physician: Osbaldo Bennett Performed By: Teri Sandoval RDCS
--- NOTE | 2021-12-24 22:49 | NURSING ---
Phone call received from pt daughter Charo, permission provided by pt. Update to daughter at this time.
[2021-12-25 02:27] VITALS: BP 129/68; PULSE 54; RESP 18; TEMP 36.4; O2SAT 97
[2021-12-25 02:31] VITALS: BP 119/71; BP 120/61; BP 129/68; PULSE 54; PULSE 59; PULSE 70
[2021-12-25 03:17] VITALS: PULSE 52
[2021-12-25 04:53] LABS: Anion Gap 5 (5-15); BUN 13 mg/dL (7-18); BUN/Creat Ratio 11.8 RATIO (10-20); Calcium,Total 8.4 mg/dL (8.5-10.1); Chloride 105 mmol/L (98-107); EST Glomerular Filtration Rate 68 mL/min (>60); Est Glom Filt Rate - Afr Amer 83 mL/min (>60); Estimated Creatinine Clearance 54.38 ml/min; Glucose 113 mg/dL (74-106); Potassium 3.6 mmol/L (3.5-5.1); Sodium Level 138 mmol/L (136-145)
[2021-12-25 06:01] VITALS: BP 116/67; PULSE 52; RESP 18; TEMP 36.4; O2SAT 98
[2021-12-25 06:59] VITALS: PULSE 55
[2021-12-25 12:00] VITALS: BP 122/60; PULSE 54; RESP 18; TEMP 36.5; O2SAT 94
--- NOTE | 2021-12-25 13:31 | TELEMED_ITS ---
[facility] has confirmed receipt of a request for visit. This document confirms receipt of the order initiating the consult. To find the results of the consultation, please view the patient's reports for the scanned Telemed Consult.
--- NOTE | 2021-12-25 14:42 | CASEMGMT ---
Pt does not have therapy ordered and per Carole HOUSER, pt has been up in room on own. Glynn HOUSER CM
--- NOTE | 2021-12-25 15:14 | DCINST_ITS ---
Discharge Instructions Diet Discharge Diet: No restrictions Activity Discharge Activity: Return to Normal Activity and May Not Drive Weight Bearing Status: Full weight bearing Follow Up Care Test Results: Test results from this visit will be discussed in further detail at your follow- up appointment, if applicable. Discharge Plan Admission Admit Date/Time: 12/24/21 20:12 Primary Reason for Your Visit: syncope Attending Provider: Ted Brooks Primary Care Provider: Osbaldo Bennett Consulting Providers: Manolo Garcia Discharge Orders/Prescriptions Prescriptions: New oxymetazoline [Nasal [place] (oxymetazoline)] 0.05 % [place],Non-Aerosol 2 spray NASAL BID Qty: 0 0RF Continued lisinopril 20 mg tablet 1 tab PO DAILY Label Comments: TAKE 1 TABLET BY MOUTH ONCE DAILY hydrochlorothiazide 25 mg tablet 1 tab PO DAILY Label Comments: TAKE 1 TABLET BY MOUTH ONCE DAILY memantine 5 mg tablet 1 tab PO DAILY Label Comments: TAKE 1 TABLET BY MOUTH ONCE DAILY Vitamin D3 25 mcg PO/SL DAILY Other Ambulatory Orders: 30-Day Event Recorder (Routine) Location: None Selected Ordered By: Dr. Ted Brooks Referrals / Follow Up: Osbaldo Bennett MD [Primary Care Provider] - Within 2 Weeks Disposition Disposition (needs filled in before D/C Order can be placed): Home, Self Care
--- NOTE | 2021-12-25 17:18 | DS.PCM_ITS ---
Providers Date of Admission: 12/24/21 Date of Discharge: 12/25/21 Primary Care Physician: Dr. Osbaldo Bennett MD Reason For Visit: SYNCOPE Diagnosis Discharge Diagnosis (1) Syncope: Status: Acute Code(s): R55 - Syncope and collapse (2) COVID-19: Status: Acute Code(s): U07.1 - COVID-19 Plan 1. Syncope-etiology unknown #2 Alzheimer's dementia #3 COVID 19 infection without hypoxia-minimally symptomatic #4 essential hypertension Medications at Discharge Home Medications Vitamin D3 25 mcg PO/SL DAILY 12/24/21 hydrochlorothiazide 25 mg tablet 1 tab PO DAILY 12/24/21 lisinopril 20 mg tablet 1 tab PO DAILY 12/24/21 memantine 5 mg tablet 1 tab PO DAILY 12/24/21 oxymetazoline 0.05 % nasal spray (Nasal [place] (oxymetazoline)) 2 spray NASAL BID #0 mL 12/25/21 Hospital Course Operations None Procedures 2-D Echocardiogram and Electroencephalogram Summary of Care Provided Minutes Spent on Discharge: 30 Hospital Course: This 81-year-old white male was seen in the emergency room at [facility] after he was brought in at the direction of his family by the squad due to complaints of recurrent syncopal episodes over the prior 24 hours. Patient has a history of dementia, information was obtained from the patient's , according to the , patient had passed out briefly at home, he woke up uneventfully and there was no signs of seizure activity. Patient had some vague upper respiratory symptoms as well as some chills, he was tested for COVID 19 and was positive on his antigen test. According to the patient's , patient has had a history of syncope before-this occurred when he was in [place] visiting his son, they did not seek emergency room evaluation though at that time. Patient denied any chest pain or shortness of breath. Lab was obtained in the emergency room, CBC was unremarkable, troponin was 3, creatinine was slightly elevated at 1.31. EKG showed a sinus bradycardia with a rate of 57 without ischemic changes, chest x-ray showed no acute cardiopulmonary process. CT of the brain and cervical spine was obtained which showed no acute findings. Patient was placed in observation status on PCU and monitored on telemetry, there were no significant arrhythmias noted during his hospital stay, I had discussions with the patient's and the patient about further work-up, echocardiogram was performed which was unremarkable, patient had an EEG performed-the results of which were not back at the time of the patient's discharge from the hospital, and the patient was set up for a 30-day event monitor at the time of discharge from the hospital. On 12/25/2021, patient was seen and examined: On examination he appeared in good health and spirits, patient showed evidence of mild cognitive impairment. Vital signs as documented. Skin warm and dry and without overt rashes. Neck without JVD, neck was supple, trachea midline, thyroid was normal. Lungs clear bilaterally, normal air movement was noted. Heart exam notable for regular rhythm, normal sounds and absence of murmurs, rubs or gallops. Abdomen unremarkable and without evidence of organomegaly, masses, or abdominal aortic enlargement. Bowel sounds are present, abdomen is not distended. Extremities nonedematous, no cyanosis was noted, no clubbing was noted. Neuro: Cranial nerv es II through XII are grossly intact, no focal motor deficits were noted, sensation to light touch and pinprick intact, motor exam 5/5 throughout. Psych: Patient is alert and oriented x3, he does not appear anxious or depressed, he does not appear agitated. On 12/25/2021, patient was seen and examined and felt to be stable for discharge home-patient was instructed to quarantine at home for 5 days due to his minimal symptomology from COVID-19. Weight / BMI Weight Weight: 73 kg Body Mass Index (BMI) 21.8 ABG / Lab / Microbiology Data Result Diagrams: 12/24/21 17:15 12/25/21 04:25 Laboratory: Laboratory Results - last 24 hr 12/24/21 17:15: WBC 8.7, RBC 4.37 L, Hgb 14.5, Hct 42.2, MCV 96.6 H, MCH 33.2 H, MCHC 34.4, RDW Std Deviation 45.1 H, RDW Coeff of [place] 12.6, Plt Count 150, MPV 11.1, Immature Gran % (Auto) 0.600, Neut % (Auto) 66.1, Lymph % (Auto) 19.3, [place] % (Auto) 12.0 H, Eos % (Auto) 1.5, Baso % (Auto) 0.5, Absolute Neuts (auto) 5.8, Absolute Lymphs (auto) 1.68, Nucleated RBC % 0 12/24/21 17:15: Sodium 136, Potassium 3.6, Chloride 100, Carbon Dioxide 27.0, Anion Gap 9, BUN 15, Creatinine 1.31 H, Estim Creat Clear Calc 45.79, Est GFR (MDRD) Af Amer 67, Est GFR (MDRD) Non-Af 56 L, BUN/Creatinine Ratio 11.5, Glucose 145 H, Calcium 9.2, Troponin I High Sens 3 12/24/21 17:15: D-Dimer Quant (PE/DVT) 0.51 H* 12/24/21 19:42: Troponin I High Sens 4 12/25/21 04:25: Sodium 138, Potassium 3.6, Chloride 105, Carbon Dioxide 28.0, Anion Gap 5, BUN 13, Creatinine 1.10, Estim Creat Clear Calc 54.38, Est GFR (MDRD) Af Amer 83, Est GFR (MDRD) Non-Af 68, BUN/Creatinine Ratio 11.8, Glucose 113 H, Calcium 8.4 L Microbiology: Microbiology 12/24/21 18:58 Nasal Secretion SARS-CoV-2 & FLU Antigen (Rapid) - Final SARS-CoV-2 (COVID 19) Radiography Diagnostic Testing: Radiology Impression Brain CT 12/24/21 17:18 IMPRESSION: Chronic involutional changes of the brain. Electronically Signed: Bhupinder Shaikh MD at 18:15 EDT Reading Location ID and State: [id number] / [employer] , Service support , Cervical Spine CT 12/24/21 17:18 IMPRESSION: No acute fracture or subluxation. Electronically Signed: Bhupinder Shaikh MD at 18:21 EDT , Chest X-Ray 12/24/21 17:45 IMPRESSION: Normal x-ray examination of the chest. Electronically Signed: Bhupinder Shaikh MD at 18:23 EDT , Echocardiogram 12/24/21 20:17 Interpretation Summary Normal LV size. Left ventricular systolic function is normal. The estimated ejection fraction is 60 %. Pulmonary artery systolic pressure is 30 mmHg. Normal diastology for age. Ordering Physician: Manolo Garcia Referring Physician: Osbaldo Bennett Performed By: Teri Sandoval RDCS D/C Instructions Discharge Diet: No restrictions Weight Bearing Status: Full weight bearing Meaningful Use Info Meaningful Use Diagnoses (Choose all that apply): None applicable Discharge Plan Admission Admit Date/Time: 12/24/21 20:12 Primary Reason for Your Visit: syncope Attending Provider: Ted Brooks Primary Care Provider: Osbaldo Bennett Consulting Providers: Manolo Garcia Discharge Orders/Prescriptions Prescriptions: New oxymetazoline [Nasal [place] (oxymetazoline)] 0.05 % [place],Non-Aerosol 2 spray NASAL BID Qty: 0 0RF Continued lisinopril 20 mg tablet 1 tab PO DAILY Label Comments: TAKE 1 TABLET BY MOUTH ONCE DAILY hydrochlorothiazide 25 mg tablet 1 tab PO DAILY Label Comments: TAKE 1 TABLET BY MOUTH ONCE DAILY memantine 5 mg tablet 1 tab PO DAILY Label Comments: TAKE 1 TABLET BY MOUTH ONCE DAILY Vitamin D3 25 mcg PO/SL DAILY Other Ambulatory Orders: 30-Day Event Recorder (Routine) Location: None Selected Ordered By: Dr. Ted Brooks Referrals / Follow Up: Osbaldo Bennett MD [Primary Care Provider] - Within 2 Weeks Disposition Disposition (needs filled in before D/C Order can be placed): Home, Self Care Charges/Coding Visit Charges OBSV E&M: 98034 Observation care discharge
== END 2021-12-25 18:26 | disposition home or self-care (01) ==
LOC: ED 19:11 → MS3 20:02 → PCU 12-25 07:22
PROVIDERS: Emergency Provider Student in an Organized Health Care Education/Training Program; PCP Family Medicine; Visit Provider Internal Medicine
DX: R55 Syncope and collapse (principal); G30.9 Alzheimer's disease, unspecified; F02.80 Dementia in other diseases classified elsewhere, unspecified severity, without behavioral disturbance, psychotic disturbance, mood disturbance, and anxiety; U07.1 COVID-19; R00.1 Bradycardia, unspecified; K59.00 Constipation, unspecified; I10 Essential (primary) hypertension; Z79.899 Other long term (current) drug therapy
CPT/HCPCS: 36415; 70450; 71045; 72125; 80048; 84484; 85025; 85379; 87428; 93005; 93306; 95819; 96361; 96374; 99218; 99285; J7030; A4216; G0378; J2405

== ENCOUNTER → 2022-02-21 | Outpatient (CLI) | payer MEDICARE, SELFPAY ==
[2022-02-21 13:12] LABS: Cholesterol 210 mg/dL (200); High Density Lipoprotein 59 mg/dL; PSA,Total - Annual Screen 2.75 ng/mL (0.00-4.00); Triglycerides 83 mg/dL; Very Low Density Lipoprotein 17 mg/dL (5-40)
== END | disposition home or self-care (01) ==
LOC: MFPLAB 09:57
PROVIDERS: PCP Family Medicine; Referring Provider Family Medicine; Visit Provider Family Medicine
DX: Z00.00 Encounter for general adult medical examination without abnormal findings (principal); Z12.5 Encounter for screening for malignant neoplasm of prostate; I10 Essential (primary) hypertension
CPT/HCPCS: 36415; 80061; 84153; G0103

== ENCOUNTER → 2022-10-11 | Outpatient (CLI) | payer MEDICARE, SELFPAY ==
[2022-10-11 12:39] LABS: Anion Gap 6 (5-15); BUN 17 mg/dL (7-18); Calcium,Total 9.1 mg/dL (8.5-10.1); Chloride 106 mmol/L (98-107); Cholesterol 221 mg/dL (200); Creatinine, Serum 1.31 mg/dL (0.70-1.30); EST Glomerular Filtration Rate 56 mL/min (>60); Est Glom Filt Rate - Afr Amer 67 mL/min (>60); Glucose 93 mg/dL (74-106); High Density Lipoprotein 65 mg/dL; PSA,Total- Diagnostic 3.04 ng/mL (0.0-4.0); Potassium 3.9 mmol/L (3.5-5.1); Sodium Level 138 mmol/L (136-145); Triglycerides 68 mg/dL; Very Low Density Lipoprotein 14 mg/dL (5-40)
== END | disposition home or self-care (01) ==
LOC: MFPLAB 09:55
PROVIDERS: PCP Family Medicine; Referring Provider Family Medicine; Visit Provider Family Medicine
DX: R35.0 Frequency of micturition (principal); I10 Essential (primary) hypertension
CPT/HCPCS: 36415; 80048; 80061; 84153

== ENCOUNTER 2023-04-29 18:01 | Observation (INO) | payer MEDICARE, SELFPAY ==
[2023-04-29 18:02] VITALS: BP 169/80; PULSE 62; RESP 14; TEMP 36.3; O2SAT 100; BMI 23.3
--- NOTE | 2023-04-29 19:05 | EDS_ITS ---
HPI <KRISHAN Garduno - Last Filed: 04/29/23 21:02> History of Present Illness Chief Complaint: Nausea/Vomiting Narrative Narrative: Patient is an 82-year-old male with history of hypertension, history of syncope who presents to the emergency department for a near syncopal episode, nausea, vomiting, diarrhea. Patient was doing errands with his , they were taking something out of the truck when he developed a sudden onset of what he called dizziness as an lightheadedness, felt like he had to sit down. He then had to go to the bathroom, had a large bowel movement with diarrhea as well as nausea and vomiting. He states the nausea and vomiting continued, he became diaphoretic, became cold to the touch, had bilateral hands and feet tingling. His then called the ambulance. He denies any chest pain or shortness of breath. PFSH <KRISHAN Garduno - Last Filed: 04/29/23 21:02> [facility] Medical History (Updated 04/29/23 @ 22:[address] Renard Zayas MD) Brain bleed COVID-19 Dementia Hypertension Skin cancer Skin cancer (melanoma) Home Medications Vitamin D3 25 mcg PO/SL DAILY 12/24/21 [History Last Taken Unknown] hydrochlorothiazide 25 mg tablet 1 tab PO DAILY 12/24/21 [History Last Taken Unknown] lisinopril 20 mg tablet 1 tab PO DAILY 12/24/21 [History Last Taken Unknown] memantine 5 mg tablet 1 tab PO DAILY 12/24/21 [History Last Taken Unknown] oxymetazoline 0.05 % nasal spray (Nasal Vale (oxymetazoline)) 2 spray NASAL BID #0 mL 12/25/21 [Rx Last Taken Unknown] Allergy/AdvReac Type Severity Reaction Status Date / Time No Known Allergies Allergy Verified 04/29/23 18:04 Social History (Updated 12/24/21 @ 20:[address] Manolo Garcia DO) Smoking Status: Never smoker alcohol intake: never substance use type: does not use ROS <KRISHAN Garduno - Last Filed: 04/29/23 21:02> ROS ED ROS Narrative Constitutional: Negative for fever, chills, weight loss,. Positive for weakness Eyes: Negative for vision loss, vision change, double vision ENT: Negative for any sore throat, ear pain, congestion Cardiovascular: Negative for any chest pain, tightness, palpitations Respiratory: Negative for any cough, sputum production, hemoptysis, dyspnea, dyspnea on exertion, orthopnea Gastrointestinal: Negative for any abdominal pain,constipation, blood in stool, blood in vomit. Positive for nausea, vomiting, diarrhea : Negative for any urinary frequency, dysuria, retention, blood in urine Muscle skeletal: Negative for any muscle joint pain, stiffness, myalgias, arthralgias, neck pain, back pain Neurological: Negative for any headache, numbness or tingling. Positive for lightheadedness, near syncope Skin: Negative for any rashes, lumps, itching, abrasions, lacerations Psychiatric: Negative for any depression, anxiety, stress, suicidal ideation, homicidal ideation Hematologic: Negative for any easy bruising, excessive bruising, easy bleeding Allergies: Negative for any eczema, hives, rash EXAM <KRISHAN Garduno - Last Filed: 04/29/23 21:02> Physical Exam Narrative Exam Narrative: Vital signs reviewed. HEET: Head normocephalic atraumatic, TMs clear bilaterally. Posterior pharynx is clear, moist mucous membranes. Nares clear bilaterally. Pupils are equal round reactive to light. Patient is alert and orient x4. Acting appropriate. Patient is not diaphoretic at this time. He did have 1 episode of vomitus however no abdominal pain. Neck: Supple with no lymphadenopathy or tenderness. No signs of meningismus, negative jolt sign. Cardiac: Regular rate and rhythm no murmurs gallops or rubs, equal peripheral pulses bilaterally. Respiratory: Lungs clear to auscultation bilaterally. No chest tenderness. Abdomen: Soft, nontender, nondistended. No abdominal bruit or pulsatile masses. No hepatosplenomegaly Extremities: No peripheral edema, no signs of gross trauma or deformity. Active full range of motion of all extremities. Neuro: Cranial nerves II through XII intact, no focal neurological deficits. Patient did have slight horizontal nystagmus when looking to the right however not to the left. Haily-Hallpike maneuver was negative. Patient did not describe the dizziness as room spinning he felt more lightheaded. Skin: Clean dry and intact with no rash, purpura, petechiae, vesicles or pustules. Backs/flank: No CVA tenderness, no midline spinal tenderness, no deformity. Psych: Normal mood and affect. No SI, HI or acute psychosis. Const Vital Signs: 04/29/23 18:02 04/29/23 20:58 04/29/23 21:00 Temperature 97.3 F L Temperature Source Temporal Pulse Rate 62 Pulse Rate [Lying] 65 Pulse Rate [Sitting (for 1 minute prior to obtaining)] 62 Respiratory Rate 14 18 Blood Pressure 169/80 H 132/61 H Blood Pressure [Lying] 129/68 H Blood Pressure [Sitting (for 1 minute prior to obtaining)] 132/61 H Blood Pressure Mean 109 84 Blood Pressure Mean [Lying] 88 Blood Pressure Mean [Sitting (for 1 minute prior to obtaining)] 84 Pulse Ox 100 96 Oxygen Delivery Method Room Air Room Air Positive well nourished and well developed General Appearance ED: well developed <Dr. Renard Zayas MD - Last Filed: 04/29/23 22:39> Physical Exam Const Vital Signs: 04/29/23 18:02 04/29/23 20:58 04/29/23 21:00 Temperature 97.3 F L Temperature Source Temporal Pulse Rate 62 Pulse Rate [Lying] 65 Pulse Rate [Sitting (for 1 minute prior to obtaining)] 62 Respiratory Rate 14 18 Blood Pressure 169/80 H 132/61 H Blood Pressure [Lying] 129/68 H Blood Pressure [Sitting (for 1 minute prior to obtaining)] 132/61 H Blood Pressure Mean 109 84 Blood Pressure Mean [Lying] 88 Blood Pressure Mean [Sitting (for 1 minute prior to obtaining)] 84 Pulse Ox 100 96 Oxygen Delivery Method Room Air Room Air MDM <KRISHAN Garduno - Last Filed: 04/29/23 21:02> [facility] Lab Data Labs: Laboratory Results - last 24 hr 04/29/23 04/29/23 19:12 20:25 WBC 13.4 H RBC 3.99 L Hgb 12.7 L Hct 38.8 L MCV 97.2 H MCH 31.8 MCHC 32.7 RDW Std Deviation 46.4 H RDW Coeff of [place] 12.9 Plt Count 153 MPV 10.7 Immature Gran % (Auto) 0.400 Neut % (Auto) 86.7 H Lymph % (Auto) 6.3 L [place] % (Auto) 6.0 Eos % (Auto) 0.4 Baso % (Auto) 0.2 Absolute Neuts (auto) 11.6 H Absolute Lymphs (auto) 0.84 Nucleated RBC % 0 Sodium 138 Potassium 3.1 L Chloride 103 Carbon Dioxide 26.0 Anion Gap 9 BUN 19 H Creatinine 1.28 Estim Creat Clear Calc 48.84 Est GFR (MDRD) Af Amer 69 Est GFR (MDRD) Non-Af 57 L BUN/Creatinine Ratio 14.8 Glucose 194 H Calcium 8.8 Total Bilirubin 1.10 H AST 25 ALT 23 Alkaline Phosphatase 62 Total Protein 7.1 Albumin 3.9 Globulin 3.2 Albumin/Globulin Ratio 1.2 Lipase 22 Urine Color Yellow Urine Clarity Sl. Cloudy Urine pH 6.0 Ur Specific [place] 1.015 Urine Protein 15 H Urine Glucose (UA) 100 H Urine Ketones 50 H Urine Occult Blood Negative Urine Nitrite Negative Urine Bilirubin Negative Urine Urobilinogen Normal Ur Leukocyte Esterase Negative Urine RBC 0 SEEN Urine WBC 0 SEEN Ur Squamous Epith Cells 0-5 SEEN Urine Bacteria 0 SEEN Urine Mucus 0 SEEN Radiography Diagnostic Testing: Clinical Impression(s) from Imaging Studies Chest X-Ray 04/29/23 19:20 IMPRESSION: No acute cardiopulmonary pathology Electronically Signed: Prabhakar Lopes MD at 19:34 EDT , Brain CT 04/29/23 20:49 IMPRESSION: Moderate atrophy and advanced periventricular white matter ischemic change. No acute bleed. If concern for acute infarct MRI recommended Electronically Signed: Prabhakar Lopes MD at 21:35 EDT , Abdomen/Pelvis CT 04/29/23 20:50 IMPRESSION: Findings which may be consistent with nonspecific gastroduodenitis.. Diffusely distended fecal filled colon with rectal impaction. No evidence for small bowel obstruction or acute appendicitis Electronically Signed: Prabhakar Lopes MD at 21:44 EDT , EKG Rate of 65 bpm, irregular rhythm: Attestation: I personally reviewed and interpreted this EKG as follows: Interpretation: Atrial Fibrillation Comments: EKG shows atrial fibrillation, rate of 65 bpm, this is irregular, the QRS duration was 96 ms. Treatment and Re-Evaluation :: Patient is in no obvious distress, vital signs are stable. Patient did have 1 episode of vomitus during my examination. Patient presents to the emergency department for nausea, vomiting, near syncope. Patient received a full cardiac work-up including laboratory values to look for any leukocytosis, anemia, as well as any concerning for electrolyte abnormality, elevated troponin. Urinalysis be completed to see if there is any infection. Chest x-ray to ensure there is no pneumonia, pleural effusion. Differential diagnosis includes gastroenteritis, vasovagal syncope, bowel obstruction. Patient will receive 1 L of normal saline, IV Zofran. Patient's laboratory values showed a leukocytosis with a white blood count of 13.4. Hemoglobin 12.7. Patient's chemistries showed a slight decrease in potassium at 3.1, BUN was 19, creatinine was normal. Patient's blood glucose was 194 with a total bilirubin of 1.1. Patient received IV fluids, IV Zofran. Patient did feel better. Did speak with the patient regarding discharge, patient was then ordered to ambulate around the department, patient whenever he sat up, stood up, he felt dizzy, lightheaded again. He felt sweaty and continued to have nausea and vomiting. At this time, I do not believe the patient is stable for discharge. Patient will receive further testing. He will receive another liter of normal saline, IV Zofran. Patient received a CT scan of the brain concerning for any intracranial hemorrhage, intracranial abnormality. As well as CT of the abdomen pelvis concerning for a diverticulitis, obstruction. <Dr. Renard Zayas MD - Last Filed: 04/29/23 22:39> [facility] MDM Narrative Medical decision making narrative: Addendum dictation on repeat exam patient is still feeling ill at 10:30 PM. He still having active nausea and retching. To be given another dose of Zofran. When he tried to ambulate he felt quite dizzy. I believe he is viral syndrome. Protos likely a viral gastroenteritis. CAT scan of his brain showed chronic changes no acute process no bleed or stroke. CT of his abdomen showed a gastroduodenitis. No other acute abnormalities. No appendicitis and no bowel obstruction. We attempted to walk the patient and is just not doing well enough to be discharged home. I will speak to the hospitalist about admitting him continue g iving IV fluids and nausea medication. Patient and are comfortable with the plan. History & Record Review Discussion w/independent historian: Patient and Family Lab Data Attestation: I reviewed the patient's lab results. Lab results narrative: CBC shows a white count of 13.4 H&H 12.7 and 38. Platelets 153. Electrolytes show potassium 3.1 gap of 9 BUN and creatinine 19 and 1.2. Liver enzymes and lipase are unremarkable. Urinalysis is negative. Labs: Laboratory Results - last 24 hr 04/29/23 04/29/23 19:12 20:25 WBC 13.4 H RBC 3.99 L Hgb 12.7 L Hct 38.8 L MCV 97.2 H MCH 31.8 MCHC 32.7 RDW Std Deviation 46.4 H RDW Coeff of [place] 12.9 Plt Count 153 MPV 10.7 Immature Gran % (Auto) 0.400 Neut % (Auto) 86.7 H Lymph % (Auto) 6.3 L [place] % (Auto) 6.0 Eos % (Auto) 0.4 Baso % (Auto) 0.2 Absolute Neuts (auto) 11.6 H Absolute Lymphs (auto) 0.84 Nucleated RBC % 0 Sodium 138 Potassium 3.1 L Chloride 103 Carbon Dioxide 26.0 Anion Gap 9 BUN 19 H Creatinine 1.28 Estim Creat Clear Calc 48.84 Est GFR (MDRD) Af Amer 69 Est GFR (MDRD) Non-Af 57 L BUN/Creatinine Ratio 14.8 Glucose 194 H Calcium 8.8 Total Bilirubin 1.10 H AST 25 ALT 23 Alkaline Phosphatase 62 Total Protein 7.1 Albumin 3.9 Globulin 3.2 Albumin/Globulin Ratio 1.2 Lipase 22 Urine Color Yellow Urine Clarity Sl. Cloudy Urine pH 6.0 Ur Specific [place] 1.015 Urine Protein 15 H Urine Glucose (UA) 100 H Urine Ketones 50 H Urine Occult Blood Negative Urine Nitrite Negative Urine Bilirubin Negative Urine Urobilinogen Normal Ur Leukocyte Esterase Negative Urine RBC 0 SEEN Urine WBC 0 SEEN Ur Squamous Epith Cells 0-5 SEEN Urine Bacteria 0 SEEN Urine Mucus 0 SEEN Radiography Chest X-Ray - ED: 1 View, Read by ED Physician, Read by Radiologist, Normal, Heart, Lungs, Mediastinum, Bony Structures and No Acute Disease Diagnostic Testing: Clinical Impression(s) from Imaging Studies Chest X-Ray 04/29/23 19:20 IMPRESSION: No acute cardiopulmonary pathology Electronically Signed: Prabhakar Lopes MD at 19:34 EDT , Brain CT 04/29/23 20:49 IMPRESSION: Moderate atrophy and advanced periventricular white matter ischemic change. No acute bleed. If concern for acute infarct MRI recommended Electronically Signed: Prabhakar Lopes MD at 21:35 EDT , Abdomen/Pelvis CT 04/29/23 20:50 IMPRESSION: Findings which may be consistent with nonspecific gastroduodenitis.. Diffusely distended fecal filled colon with rectal impaction. No evidence for small bowel obstruction or acute appendicitis Electronically Signed: Prabhakar Lopes MD at 21:44 EDT , Chest x-ray no acute process. Interpreted both by myself and the radiologist. Portable single view. CAT scan of the abdomen showed gastroduodenitis. Otherwise no acute abnormality. CAT scan of the brain showed chronic changes. Discharge Plan Triage Chief Complaint: Nausea/Vomiting Other Complaint: Dizziness ED Midlevel Provider: Osbaldo Reyes ED Provider: Renard Zayas Dx/Rx/DC Orders Clinical Impression: History of intracranial hemorrhage, Dizziness, Near syncope, Viral syndrome, Intractable vomiting with nausea Prescriptions: No Action lisinopril 20 mg tablet 1 tab PO DAILY Patient Comments: TAKE 1 TABLET BY MOUTH ONCE DAILY hydrochlorothiazide 25 mg tablet 1 tab PO DAILY Patient Comments: TAKE 1 TABLET BY MOUTH ONCE DAILY memantine 5 mg tablet 1 tab PO DAILY Patient Comments: TAKE 1 TABLET BY MOUTH ONCE DAILY Vitamin D3 25 mcg PO/SL DAILY oxymetazoline [Nasal Vale (oxymetazoline)] 0.05 % Vale,Non-Aerosol 2 spray NASAL BID Qty: 0 0RF Primary Care Provider: Osbaldo Bennett Referrals: Osbaldo Bennett MD [Primary Care Provider] -
[2023-04-29] MEDS: Ondansetron 4 MG/2 ML Vial IV ×3 (19:10→22:45)
[2023-04-29] MEDS: 0.9% Normal Saline (1000mL) 1,000 ML 1000 ML IV (19:10)
[2023-04-29 19:19] LABS: Absolute Lymphocyte Count 0.84 X10^3/uL (0.83-4.51); Absolute Neutrophil Count 11.6 X10^3/uL (2.0-7.7); Basophil# 0.03 X10^3/uL; Basophil% 0.2 % (0-1); Eosinophil# 0.05 X10^3/uL; Eosinophils% 0.4 % (0-5); Hematocrit 38.8 % (40-54); Hemoglobin 12.7 g/dL (13.0-16.5); Lymphocyte # 0.84 X10^3/ul (0.83-4.51); Lymphocyte % 6.3 % (19-41); Mean Corp Hgb Conc 32.7 g/dL (32-36); Mean Corpuscular Hgb 31.8 pg (27.0-32.0); Mean Corpuscular Volume 97.2 fL (80-94); Mean Platelet Vol. 10.7 fl (6.2-12.0); NRBC Flagged by Analyzer 0 % (0-5); Neutrophil # 11.59 X10^3/uL (2.7-7.7); Neutrophil % 86.7 % (47-70); Platelet Count 153 K/mm3 (150-450); RBC Distribution Width CV 12.9 % (11.6-14.6); RBC Distribution Width SD 46.4 fl (35.1-43.9); Red Blood Count 3.99 M/mm3 (4.6-6.2); White Blood Count 13.4 K/mm3 (4.4-11.0)
--- NOTE | 2023-04-29 19:20 | RAD_ITS ---
STUDY: X-RAY CHEST REASON FOR EXAM: Male, 82 years old. cough TECHNIQUE: AP portable COMPARISON: 08/26/2021 FINDINGS: The lungs are clear and expanded. There is no demonstrated pleural abnormality. Normal size heart. Normal mediastinum and viry. Normal visualized pulmonary arteries. Mildly calcified aortic arch and descending thoracic aorta. Normal visualized thoracic spine. Normal visualized ribs, clavicles, and shoulders. There is no demonstrated abnormality of the visualized soft tissue structures of the upper abdomen. RAD/Chest 1 View (Portable) IMPRESSION: No acute cardiopulmonary pathology Electronically Signed: Prabhakar Lopes MD at 19:34 EDT ,
[2023-04-29 19:35] LABS: ALB/GLOB Ratio 1.2 RATIO (0.9-2.4); AST(SGOT) 25 U/L (15-37); Alanine Aminotransfer ALT/SGPT 23 U/L (16-61); Albumin, Serum 3.9 g/dL (3.2-5.0); Alkaline Phosphatase 62 U/L (45-117); Anion Gap 9 (5-15); BUN 19 mg/dL (7-18); BUN/Creat Ratio 14.8 RATIO (10-20); Calcium,Total 8.8 mg/dL (8.5-10.1); Chloride 103 mmol/L (98-107); Creatinine, Serum 1.28 mg/dL (0.70-1.30); EST Glomerular Filtration Rate 57 mL/min (>60); Est Glom Filt Rate - Afr Amer 69 mL/min (>60); Estimated Creatinine Clearance 48.84 ml/min; Globulin 3.2 g/dL (2.2-4.2); Glucose 194 mg/dL (74-106); Lipase 22 U/L (13-75); Potassium 3.1 mmol/L (3.5-5.1); Protein, Total 7.1 g/dL (6.4-8.2); Sodium Level 138 mmol/L (136-145)
[2023-04-29 20:31] LABS: Bacteria 0 SEEN /hpf (None Seen); Mucous, Urine 0 SEEN /hpf (<or=2+); Red Blood Cells-Urine 0 SEEN /hpf (0-5); White Blood Cells 0 SEEN /hpf (0-5)
[2023-04-29 20:38] LABS: Color, Urine Yellow (Yellow); Glucose, Dipstick 100 mg/dl (Normal); Ketone-Dipstick 50 mg/dl (Negative); Leukocyte Esterase-Dipstick Negative /ul (Negative); Nitrite-Dipstick Negative (Negative); Occult Blood-Urine Negative /ul (Negative); Protein-Dipstick 15 mg/dl (Negative); Specific Gravity, Urine 1.015 (1.002-1.030); Urine Bilirubin Dipstick Negative (Negative); Urine Clarity Sl. Cloudy (Clear); Urine Urobilinogen Normal (Normal)
[2023-04-29 20:46] LABS: Squamous Epithelial Cells - UA 0-5 SEEN /hpf (0-5)
--- NOTE | 2023-04-29 20:49 | CT_ITS ---
STUDY: CT BRAIN WITHOUT CONTRAST REASON FOR EXAM: Male, 82 years old. Nausea RADIATION DOSAGE (If Supplied By Facility): CTDIvol = ( 44.99 ) mGy, DLP = ( 866.41 ) mGycm TECHNIQUE: Transaxial CT imaging of the brain was performed without administration of intravenous contrast material. Individualized dose optimization techniques were used for this CT. COMPARISON: December 24, 2021. FINDINGS: Normal soft tissue structures. Normal calvarium. Calcific plaquing of the cavernous carotids Moderate atrophy and advanced periventricular white matter ischemic changes. Normal basal ganglia and thalami. Normal brainstem. Normal cerebellum. There is no intracranial hemorrhage. There are no findings of an acute ischemic infarction. Normal visualized paranasal sinuses. Postsurgical changes of the orbits CT/Brain/Head without Contrast IMPRESSION: Moderate atrophy and advanced periventricular white matter ischemic change. No acute bleed. If concern for acute infarct MRI recommended Electronically Signed: Prabhakar Lopes MD at 21:35 EDT ,
--- NOTE | 2023-04-29 20:50 | CT_ITS ---
STUDY: CT ABDOMEN AND PELVIS WITH CONTRAST REASON FOR EXAM: Male, 82 years old. abdominal pain RADIATION DOSAGE (If Supplied By Facility): CTDIvol = ( 14.89 ) mGy, DLP = ( 736.87 ) mGycm TECHNIQUE: Transaxial images were obtained from the dome of the diaphragm to the symphysis pubis without oral contrast. IV 100mL [id number]-300 was administered. Sagittal and coronal images were reconstructed. Individualized dose optimization techniques were used for this CT. COMPARISON: None. FINDINGS: There is minor bibasilar interstitial thickening.. Heart size is normal. Mild coronary artery calcification. Small hiatal hernia is noted. Normal liver. Normal gallbladder and extrahepatic biliary system. Normal spleen. Normal pancreas. Normal bilateral adrenal glands. Normal right kidney. Normal left kidney. There is thickening of the somers of the distal stomach and duodenum consistent with nonspecific gastroduodenitis. Normal small intestine. Diffusely distended fecal filled colon with rectal impaction.. No evidence for acute appendicitis. Atherosclerotic changes of the aorta without evidence for aneurysm. Normal inferior vena cava. Normal retroperitoneum. Nonspecific enlargement of prostate impinging upon the base of the bladder which is mildly distended and thick walled possibly due to chronic prostatism. Normal abdominal wall. Lumbar spine demonstrates degenerative changes CT/Abdomen/Pelvis W IV Cont ONLY IMPRESSION: Findings which may be consistent with nonspecific gastroduodenitis.. Diffusely distended fecal filled colon with rectal impaction. No evidence for small bowel obstruction or acute appendicitis Electronically Signed: Prabhakar Lopes MD at 21:44 EDT ,
[2023-04-29] MEDS: 0.9% Normal Saline (1000mL) 1,000 ML 999 ML IV (20:55)
[2023-04-29 20:58] VITALS: BP 132/61; RESP 18; O2SAT 96
[2023-04-29 21:00] VITALS: BP 129/68; BP 132/61; PULSE 62; PULSE 65
[2023-04-29 22:48] VITALS: BP 123/60; PULSE 61; RESP 18; O2SAT 96
--- NOTE | 2023-04-29 22:57 | HP.PCM.HOS_ITS ---
HPI - General General Date of Admission: 04/29/23 Date of Service: 04/29/23 Chief Complaint: Feeling dizzy lightheaded, vomiting. Had large bowel movement. HPI Narrative NADIR GARCIA, is a 82 M who came to ED, accompanied by his for nausea vomiting and dizziness. It all started today when patient was in the grocery store [employer] he felt dizzy lightheaded and then sat down. Later on he had a good bowel movement which was normal consistent without blood. After that he felt good and then came home. At home he felt nauseous, throwing up, felt dizzy, diaphoretic sweating, cold to touch and tingling sensation in both hands and legs. He had another bowel movement which was not diarrhea. His try to take his blood pressure but he felt too sick therefore came to ED. In ED, his vitals were 129/68, 132/68 heart rate 65/min. His usual heart rate is around 50s. As per the , he had tacos and chicken sandwich with lettuce. No fever. Patient is still having bowel pain, feeling eructations, gas, gagging sensation, emesis with clear fluid [facility] Medical History Brain bleed COVID-19 Dementia Hypertension Skin cancer Skin cancer (melanoma) Home Medications Vitamin D3 25 mcg PO/SL DAILY 12/24/21 [History Last Taken Unknown] hydrochlorothiazide 25 mg tablet 1 tab PO DAILY 12/24/21 [History Last Taken Unknown] lisinopril 20 mg tablet 1 tab PO DAILY 12/24/21 [History Last Taken Unknown] memantine 5 mg tablet 1 tab PO DAILY 12/24/21 [History Last Taken Unknown] oxymetazoline 0.05 % nasal spray (Nasal [place] (oxymetazoline)) 2 spray NASAL BID #0 mL 12/25/21 [Rx Last Taken Unknown] Allergy/AdvReac Type Severity Reaction Status Date / Time No Known Allergies Allergy Verified 04/29/23 18:04 Social History Smoking Status: Never smoker alcohol intake: never substance use type: does not use ROS ROS Narrative Constitutional: Reports fatigue and weakness. No fever. Feels dehydrated. Thirsty HEENT: Reports systems reviewed and no addt'l complaints, except as documented Respiratory/Chest: No acute shortness of breath or respiratory distress or wheezing. CVS: No chest pressure or tightness. Gastrointestinal: No abdominal pain, cramps. Rest as described in HPI Genitourinary: Denies burning urination or new urinary tract symptoms Musculoskeletal: Denies acute joint pain or limited range of motion. No acute injury Neurologic: Denies seizure-like symptoms. Denies one-sided acute strokelike symptoms skin: No ulcer. No rash Endocrinology: Reports systems reviewed and no addt'l complaints, except as documented Hematologic/Lymphatic: Reports systems reviewed and no addt'l complaints, except as documented Rest 14 ROS are negative except as mentioned in HPI Vital Signs Vital Signs Vital Signs: 04/29/23 18:02 04/29/23 20:58 04/29/23 21:00 Temperature 97.3 F L Temperature Source Temporal Pulse Rate 62 Pulse Rate [Lying] 65 Pulse Rate [Sitting (for 1 minute prior to obtaining)] 62 Respiratory Rate 14 18 Blood Pressure 169/80 H 132/61 H Blood Pressure [Lying] 129/68 H Blood Pressure [Sitting (for 1 minute prior to obtaining)] 132/61 H Blood Pressure Mean 109 84 Blood Pressure Mean [Lying] 88 Blood Pressure Mean [Sitting (for 1 minute prior to obtaining)] 84 Pulse Ox 100 96 Oxygen Delivery Method Room Air Room Air 04/29/23 22:48 Temperature Temperature Source Pulse Rate 61 Pulse Rate [Lying] Pulse Rate [Sitting (for 1 minute prior to obtaining)] Respiratory Rate 18 Blood Pressure 123/60 H Blood Pressure [Lying] Blood Pressure [Sitting (for 1 minute prior to obtaining)] Blood Pressure Mean 81 Blood Pressure Mean [Lying] Blood Pressure Mean [Sitting (for 1 minute prior to obtaining)] Pulse Ox 96 Oxygen Delivery Method Room Air Weight Weight: 171 lb 15.369 oz Body Mass Index (BMI) 23.3 Results Lab / Micro Data 04/29/23 19:12 04/29/23 19:12 Labs: Laboratory Results - last 24 hr 04/29/23 19:12: WBC 13.4 H, RBC 3.99 L, Hgb 12.7 L, Hct 38.8 L, MCV 97.2 H, MCH 31.8, MCHC 32.7, RDW Std Deviation 46.4 H, RDW Coeff of [place] 12.9, Plt Count 153, MPV 10.7, Immature Gran % (Auto) 0.400, Neut % (Auto) 86.7 H, Lymph % (Auto) 6.3 L, [place] % (Auto) 6.0, Eos % (Auto) 0.4, Baso % (Auto) 0.2, Absolute Neuts (auto) 11.6 H, Absolute Lymphs (auto) 0.84, Nucleated RBC % 0, Sodium 138, Potassium 3.1 L, Chloride 103, Carbon Dioxide 26.0, Anion Gap 9, BUN 19 H, Creatinine 1.28, Estim Creat Clear Calc 48.84, Est GFR (MDRD) Af Amer 69, Est GFR (MDRD) Non-Af 57 L, BUN/Creatinine Ratio 14.8, Glucose 194 H, Calcium 8.8, Total Bilirubin 1.10 H, AST 25, ALT 23, Alkaline Phosphatase 62, Total Protein 7.1, Albumin 3.9, Globulin 3.2, Albumin/Globulin Ratio 1.2, Lipase 22 04/29/23 20:25: Urine Color Yellow, Urine Clarity Sl. Cloudy, Urine pH 6.0, Ur Specific [place] 1.015, Urine Protein 15 H, Urine Glucose (UA) 100 H, Urine Ketones 50 H, Urine Occult Blood Negative, Urine Nitrite Negative, Urine Bilirubin Negative, Urine Urobilinogen Normal, Ur Leukocyte Esterase Negative, Urine RBC 0 SEEN, Urine WBC 0 SEEN, Ur Squamous Epith Cells 0-5 SEEN, Urine Bact eria 0 SEEN, Urine Mucus 0 SEEN Radiology Impression Chest X-Ray 04/29/23 19:20 IMPRESSION: No acute cardiopulmonary pathology Electronically Signed: Prabhakar Lopes MD at 19:34 EDT , Brain CT 04/29/23 20:49 IMPRESSION: Moderate atrophy and advanced periventricular white matter ischemic change. No acute bleed. If concern for acute infarct MRI recommended Electronically Signed: Prabhakar Lopes MD at 21:35 EDT , Abdomen/Pelvis CT 04/29/23 20:50 IMPRESSION: Findings which may be consistent with nonspecific gastroduodenitis.. Diffusely distended fecal filled colon with rectal impaction. No evidence for small bowel obstruction or acute appendicitis Electronically Signed: Prabhakar Lopes MD at 21:44 EDT Reading Location ID and State: [facility]– [place][note 2[place] / [place] Tel , Service support , Assessment & Plan Assessment/Plan (1) Viral syndrome: (2) Near syncope: (3) Intractable vomiting with nausea: PLAN: Plan 1. Intractable nausea vomiting, nonspecific dyspeptic symptoms of burping, gas probably due to viral syndrome: Patient is being admitted in PCU. IV fluid Ringer lactate ordered. 40 mg IV PPI ordered. Patient also had CT abdomen with IV contrast which shows thickening of the somers of the distal stomach and duodenum consistent with nonspecific gastroenteritis. Diffusely distended fecal filled colon with rectal impaction. Patient had large bowel movement on the floor therefore Dulcolax suppository not given. Symptomatic management, antiemetics ordered. 2. Near syncope symptoms most likely due to dehydration/vagal stimulation from nausea and vomiting:Patient had orthostatic vitals which did not changes suggestive of orthostatic hypotension. On supine position, BP 131/90, pulse 48, sitting 119/60, pulse 65 and standing 138/70, pulse 70/min. 3. Hypokalemia: Potassium 3.1. Serum magnesium 1.8, phosphorus 3.1. Potassium replacement ordered. 2 g IV magnesium ordered acetaminophen low normal and patient is vomiting and dehydrated.. 4. Chronic constipation: Senna S2 tablet twice daily. MiraLAX 17 g daily. 5. Other comorbidities include hypertension and dementia: Hold HCTZ and l isinopril until nausea vomiting and dehydration resolved. On memantine 5 mg daily VTE prophylaxis: Enoxaparin 40 mg subcu daily. Discontinue if platelet count drops less than 50,000 or hemoglobin less than 8 g% Living will/advanced directive/end of life care: Patient does have living will or advanced directive. His near the bedside is power of personal development coach for health. After discussion of benefits/risks procedures involved with full code, DNR CC arrest and DNR CC, the patient and his stated that do not want her weak measures, no life support, intubation or ventilator or CPR Patient doesn't want artificial life support including intubation, tube feed, ventilator and/chest compression, central venous catheter, vasopressor and DC shock if needed Total time spent in [id number] encounter in discussion of advanced directive 17 minutes. Laboratory Results 04/29/23 19:12: WBC 13.4 H, RBC 3.99 L, Hgb 12.7 L, Hct 38.8 L, MCV 97.2 H, MCH 31.8, MCHC 32.7, RDW Std Deviation 46.4 H, RDW Coeff of [place] 12.9, Plt Count 153, MPV 10.7, Immature Gran % (Auto) 0.400, Neut % (Auto) 86.7 H, Lymph % (Auto) 6.3 L, [place] % (Auto) 6.0, Eos % (Auto) 0.4, Baso % (Auto) 0.2, Absolute Neuts (auto) 11.6 H, Absolute Lymphs (auto) 0.84, Nucleated RBC % 0, Sodium 138, Potassium 3.1 L, Chloride 103, Carbon Dioxide 26.0, Anion Gap 9, BUN 19 H, Creatinine 1.28, Estim Creat Clear Calc 48.84, Est GFR (MDRD) Af Amer 69, Est GFR (MDRD) Non-Af 57 L, BUN/Creatinine Ratio 14.8, Glucose 194 H, Calcium 8.8, Phosphorus 3.1, Magnesium 1.8, Total Bilirubin 1.10 H, AST 25, ALT 23, Alkaline Phosphatase 62, Total Protein 7.1, Albumin 3.9, Globulin 3.2, Albumin/Globulin Ratio 1.2, Lipase 22 04/29/23 20:25: Urine Color Yellow, Urine Clarity Sl. Cloudy, Urine pH 6.0, Ur Specific [place] 1.015, Urine Protein 15 H, Urine Glucose (UA) 100 H, Urine Ketones 50 H, Urine Occult Blood Negative, Urine Nitrite Negative, Urine B ilirubin Negative, Urine Urobilinogen Normal, Ur Leukocyte Esterase Negative, Urine RBC 0 SEEN, Urine WBC 0 SEEN, Ur Squamous Epith Cells 0-5 SEEN, Urine Bacteria 0 SEEN, Urine Mucus 0 SEEN Clinical Impression(s) from Imaging Studies Chest X-Ray 04/29/23 19:20 IMPRESSION: No acute cardiopulmonary pathology Brain CT 04/29/23 20:49 IMPRESSION: Moderate atrophy and advanced periventricular white matter ischemic change. No acute bleed. If concern for acute infarct MRI recommended Abdomen/Pelvis CT 04/29/23 20:50 IMPRESSION: Findings which may be consistent with nonspecific gastroduodenitis.. Diffusely distended fecal filled colon with rectal impaction. No evidence for small bowel obstruction or acute appendicitis Charges/Coding Visit Charges Inpatient E&M: 60827 Init Hosp L3 Procedures Hospitalists Procedures: 65711 Advncd Care Plan 30 Min
[2023-04-29 23:24] VITALS: BP 123/61; PULSE 54; RESP 18; O2SAT 96
[2023-04-29 23:43] LABS: Magnesium 1.8 mg/dL (1.6-2.6); Phosphorus 3.1 mg/dL (2.5-4.9)
[2023-04-30] VITALS (7 sets, daily range): BP systolic 119–138; BP diastolic 47–70; PULSE 47–70; RESP 16–18; TEMP 36.4–36.8; O2SAT 95–98; BMI 22.4
[2023-04-30] MEDS: 0.9% Saline Lock 10 ML Syringe IV ×4 (00:53→21:57)
[2023-04-30] MEDS: proCHLORPERazine 10 MG/2 ML Vial 5 MG IV ×2 (00:53→11:31)
[2023-04-30] MEDS: Lactated Ringers 1,000 ML 100 ML IV ×2 (01:05→13:38)
[2023-04-30] MEDS: Pantoprazole Sodium 40 MG in 0.9% Normal Saline (100mL MB+) 100 ML 330 MG IV (01:38)
[2023-04-30] MEDS: Magnesium Sulfate 2 GM in Dextrose 5%-Water (100mL Bag) 100 ML IV (02:03)
[2023-04-30] MEDS: Potassium Chloride Oral Tablet 20 MEQ 40 MEQ PO ×2 (02:03→04:16)
[2023-04-30 05:55] LABS: Absolute Lymphocyte Count 0.75 X10^3/uL (0.83-4.51); Absolute Neutrophil Count 5.8 X10^3/uL (2.0-7.7); Basophil# 0.02 X10^3/uL; Basophil% 0.3 % (0-1); Hematocrit 34.1 % (40-54); Hemoglobin 11.4 g/dL (13.0-16.5); Lymphocyte # 0.75 X10^3/ul (0.83-4.51); Lymphocyte % 10.8 % (19-41); Mean Corp Hgb Conc 33.4 g/dL (32-36); Mean Corpuscular Hgb 32.3 pg (27.0-32.0); Mean Corpuscular Volume 96.6 fL (80-94); Mean Platelet Vol. 11.3 fl (6.2-12.0); Monocyte# 0.32 X10^3/uL; Monocyte% 4.6 % (0-10); NRBC Flagged by Analyzer 0 % (0-5); Neutrophil # 5.84 X10^3/uL (2.7-7.7); Neutrophil % 84.2 % (47-70); Platelet Count 139 K/mm3 (150-450); RBC Distribution Width CV 13.2 % (11.6-14.6); RBC Distribution Width SD 47.3 fl (35.1-43.9); Red Blood Count 3.53 M/mm3 (4.6-6.2); White Blood Count 6.9 K/mm3 (4.4-11.0)
[2023-04-30 06:44] LABS: Anion Gap 5 (5-15); BUN 15 mg/dL (7-18); Calcium,Total 8.2 mg/dL (8.5-10.1); Chloride 106 mmol/L (98-107); Creatinine, Serum 1.07 mg/dL (0.70-1.30); EST Glomerular Filtration Rate 70 mL/min (>60); Est Glom Filt Rate - Afr Amer 85 mL/min (>60); Estimated Creatinine Clearance 56.61 ml/min; Glucose 128 mg/dL (74-106); Potassium 3.9 mmol/L (3.5-5.1); Sodium Level 137 mmol/L (136-145)
[2023-04-30] MEDS: Pantoprazole Sodium 40 MG Tablet PO (08:47)
[2023-04-30] MEDS: Memantine Hydrochloride 5 MG Tablet PO (08:47)
--- NOTE | 2023-04-30 10:39 | DCINST_ITS ---
Discharge Instructions Diet Discharge Diet: No restrictions Activity Discharge Activity: Return to Normal Activity Dressing / Incision Call your doctor if you observe: Fever of 101 or Higher, Shortness of breath, Dizziness, Fainting spells, Swelling in the ankles, Chest pain and Increased palpitations (irregular heartbeat) Follow Up Care Test Results: Test results from this visit will be discussed in further detail at your follow- up appointment, if applicable. Discharge Plan Admission Admit Date/Time: 04/29/23 22:52 Attending Provider: Inocencio Dumont Primary Care Provider: Osbaldo Bennett Consulting Providers: Kapil Jameson Discharge Orders/Prescriptions Prescriptions: Continued memantine 5 mg tablet 1 tab PO DAILY Patient Comments: TAKE 1 TABLET BY MOUTH ONCE DAILY Vitamin D3 25 mcg PO/SL DAILY oxymetazoline [Nasal [place] (oxymetazoline)] 0.05 % [place],Non-Aerosol 2 spray NASAL BID Qty: 0 0RF Held lisinopril 20 mg tablet 1 tab PO DAILY Hold Instructions: Resume on 05/02/23. Patient Comments: TAKE 1 TABLET BY MOUTH ONCE DAILY hydrochlorothiazide 25 mg tablet 1 tab PO DAILY Hold Instructions: Resume on 05/02/23. Patient Comments: TAKE 1 TABLET BY MOUTH ONCE DAILY Referrals / Follow Up: Osbaldo Bennett MD [Primary Care Provider] - Within 1 Week Disposition Disposition (needs filled in before D/C Order can be placed): Home, Self Care
--- NOTE | 2023-04-30 11:00 | PHA.DC.MR.R ---
Pharmacy MS Med Reconciliation Pharmacy Service has performed discharge medication reconciliation for this patient. The patient's discharge medication list was reviewed for discrepancies and discrepancies were resolved. Medications at Discharge Home Medications Vitamin D3 25 mcg PO/SL DAILY 12/24/21 hydrochlorothiazide 25 mg tablet 1 tab PO DAILY 12/24/21 lisinopril 20 mg tablet 1 tab PO DAILY 12/24/21 memantine 5 mg tablet 1 tab PO DAILY 12/24/21 oxymetazoline 0.05 % nasal spray (Nasal [place] (oxymetazoline)) 2 spray NASAL BID #0 mL 12/25/21
--- NOTE | 2023-04-30 12:29 | MRI_ITS ---
STUDY: MRI BRAIN WITHOUT CONTRAST REASON FOR EXAM: Male, 82 years old. ataxia, stroke, near syncope, n/v TECHNIQUE: Standardized multiplanar fat and water weighted pulse sequences were obtained. COMPARISON: CT brain April 29, 2023 FINDINGS: There is moderate cerebral atrophy with widening of the extra-axial spaces and ventricular dilatation. There are multiple white matter hyperintensities, distributed throughout the deep white matter tracts of the cerebral hemispheres, consistent with moderate chronic white matter ischemic changes. There is no evidence for recent intracranial ischemia or other cause of cytotoxic edema on diffusion weighted imaging (DWI). Left greater than right gyriform magnetic susceptibility on T2 Star. Normal bilateral basal ganglia. Normal thalami. There is no extra-axial fluid accumulation. Normal flow voids within the major intracranial circulation suggesting patency by spin echo criteria. Normal sella turcica, pituitary gland, infundibular stalk, optic chiasm and hypothalamus. Normal tectal plate and pineal gland. Normal midbrain, deep and medulla. Normal cerebellum. Normal basal cisterns. Normal bilateral temporal bones. Normal bilateral internal auditory canals. No demonstrated orbital abnormality, within the constraints of a routine brain study. Normal visualized paranasal sinuses. Normal calvarium and skull base. Normal visualized soft tissue structures. Normal visualized upper cervical spine. MRI/Brain without Contrast IMPRESSION: No acute disease. Left greater than right hemosiderin occipital cortex. Electronically Signed: Blair Rico MD at 20:56 EDT ,
--- NOTE | 2023-04-30 15:30 | CASEMGMT ---
MIK CM Face to Face with for initial transition planning/care coordination assessment as patient is at MRI. RN CM introduced self and role at [facility]. willing to participate in assessment and is able to answer all questions appropriately. Care providers, pharmacy, and demographics verified. wishes to discharge home. RN CM reviewed progress with therapy and agreeable that if tello is still requiring assistance of 1-2 then she will not be able to provide care. requesting RN CM come back when patient returns to discuss care needs at discharge. states she has no further needs or concerns at this time. CM to follow for discharge planning needs that may arise. PCP: Donald Specialists: none Preferred Pharmacy: [facility] Insurance: Jeff BERNSTEIN Prescription Benefit: yes Living Will/HPOA: yes, Brenda Thomas LNOK: Living Arrangements: Patient lives with in a first floor apartment with 1 step to enter. Patient was independent at home. Transportation: self, DME/HHC: denies DME in the home. No previous HHC or SNF Disposition Plan: TBD, will monitor progress with therapy. Jade HEATHN, RN, CM
--- NOTE | 2023-04-30 15:43 | CASEMGMT ---
Discharge Planning A list of?SNF providers including quality and resource use data and consistent with the patient's preferred geographic region, medical needs, and insurance network was created in [facility] Guide.? This list was provided to the Christine Lockhart Discharge Planning Asst.
--- NOTE | 2023-04-30 15:45 | CASEMGMT ---
MIK GERMAIN in to discuss discharge needs with patient and . RN CM reviewed progress with therapy and patient is agreeable to SNF at discharge if still needed. A SNF list was provided to patient. [facility] Patient asked if he improves tomorrow, could SNF referral be cancelled. RN CM assured patient that if he improves with therapy, discharge plan can be changed. Patient and had no further questions or concerns at this time.
--- NOTE | 2023-04-30 15:55 | CASEMGMT ---
Discharge Planning [facility] Christine Lockhart, Discharge Planning Asst.
--- NOTE | 2023-04-30 16:51 | CASEMGMT ---
Met with patient to complete MONSALVE form. MONSALVE form explained to patient who voiced understanding and signed form. Original form placed in pt?s chart and copy provided to patient. Christine Lockhart, Discharge Planning Asst.
--- NOTE | 2023-04-30 17:00 | PCM.PN.HOSP ---
Subjective Subjective Still little bit dizzy but better than when he was admitted Objective Data Objective Data Vital Signs: Vital Signs Temp Pulse Resp BP Pulse Ox O2 Del Method 98.2 F 49 L 17 124/57 H 98 Room Air 04/30/23 15:36 04/30/23 15:36 04/30/23 15:36 04/30/23 15:36 04/30/23 15:36 04/30/23 15:36 Oxygen Delivery Method Room Air Weight: 165 lb 12.602 oz Body Mass Index (BMI) 22.4 Intake & Output: Intake and Output for Last 24 Hours 04/29/23 04/30/23 05/01/23 03:59 03:59 03:59 Intake Total 2109 2500.67 / 2500.67 Output Total 450 / 450 Balance 2109. / Lab / Micro Data 04/30/23 04:59 04/30/23 04:59 Labs: Laboratory Results - last 24 hr 04/29/23 19:12: WBC 13.4 H, RBC 3.99 L, Hgb 12.7 L, Hct 38.8 L, MCV 97.2 H, MCH 31.8, MCHC 32.7, RDW Std Deviation 46.4 H, RDW Coeff of [place] 12.9, Plt Count 153, MPV 10.7, Immature Gran % (Auto) 0.400, Neut % (Auto) 86.7 H, Lymph % (Auto) 6.3 L, [place] % (Auto) 6.0, Eos % (Auto) 0.4, Baso % (Auto) 0.2, Absolute Neuts (auto) 11.6 H, Absolute Lymphs (auto) 0.84, Nucleated RBC % 0, Sodium 138, Potassium 3.1 L, Chloride 103, Carbon Dioxide 26.0, Anion Gap 9, BUN 19 H, Creatinine 1.28, Estim Creat Clear Calc 48.84, Est GFR (MDRD) Af Amer 69, Est GFR (MDRD) Non-Af 57 L, BUN/Creatinine Ratio 14.8, Glucose 194 H, Calcium 8.8, Phosphorus 3.1, Magnesium 1.8, Total Bilirubin 1.10 H, AST 25, ALT 23, Alkaline Phosphatase 62, Total Protein 7.1, Albumin 3.9, Globulin 3.2, Albumin/Globulin Ratio 1.2, Lipase 22 04/29/23 20:25: Urine Color Yellow, Urine Clarity Sl. Cloudy, Urine pH 6.0, Ur Specific [place] 1.015, Urine Protein 15 H, Urine Glucose (UA) 100 H, Urine Ketones 50 H, Urine Occult Blood Negative, Urine Nitrite Negative, Urine Bilirubin Negative, Urine Urobilinogen Normal, Ur Leukocyte Esterase Negative, Urine RBC 0 SEEN, Urine WBC 0 SEEN, Ur Squamous Epith Cells 0-5 SEEN, Urine Bacteria 0 SEEN, Urine Mucus 0 SEEN 04/30/23 04:59: WBC 6.9, RBC 3.53 L, Hgb 11.4 L, Hct 34.1 L, MCV 96.6 H, MCH 32.3 H, MCHC 33.4, RDW Std Deviation 47.3 H, RDW Coeff of [place] 13.2, Plt Count 139 L, MPV 11.3, Immature Gran % (Auto) 0.100, Neut % (Auto) 84.2 H, Lymph % (Auto) 10.8 L, [place] % (Auto) 4.6, Eos % (Auto) 0.0, Baso % (Auto) 0.3, Absolute Neuts (auto) 5.8, Absolute Lymphs (auto) 0.75 L, Nucleated RBC % 0, Sodium 137, Potassium 3.9, Chloride 106, Carbon Dioxide 26.0, Anion Gap 5, BUN 15, Creatinine 1.07, Estim Creat Clear Calc 56.61, Est GFR (MDRD) Af Amer 85, Est GFR (MDRD) Non-Af 70, BUN/Creatinine Ratio 14.0, Glucose 128 H, Calcium 8.2 L, TSH 0.80 Radiography Diagnostic Testing: Radiology Impression Chest X-Ray 04/29/23 19:20 IMPRESSION: No acute cardiopulmonary pathology Electronically Signed: Prabhakar Lopes MD at 19:34 EDT , Brain CT 04/29/23 20:49 IMPRESSION: Moderate atrophy and advanced periventricular white matter ischemic change. No acute bleed. If concern for acute infarct MRI recommended Electronically Signed: Prabhakar Lopes MD at 21:35 EDT , Abdomen/Pelvis CT 04/29/23 20:50 IMPRESSION: Findings which may be consistent with nonspecific gastroduodenitis.. Diffusely distended fecal filled colon with rectal impaction. No evidence for small bowel obstruction or acute appendicitis Electronically Signed: Prabhakar Loeps MD at 21:44 EDT , Physical Exam Narrative General: Alert, Oriented x3, Cooperative, No apparent distress HEENT: Atraumatic, PERRLA, EOMI, Normocephalic, no nystagmus Oral: Moist Mucosa Neck: Supple, No JVD Lungs: Diminished, Normal air movement, No rhonchi, No wheeze, No rales Cardiovascular: Regular rate, Regular Rhythm, Normal S1, Normal S2, No murmurs Abdomen: Soft, Non Tender, Non-Distended, No Hepato-splenomegaly Extremities: No edema, Capillary Refill Less than 3 Seconds Skin: No rashes, No breakdown Musculoskeletal: No Tenderness to Palpation of Joints or Extremities Neurological: Cranial nerves II-XII grossly intact, Motor Exam 5/5 strength throughout, Sensory exam intact to light touch and pain Psych/Mental Status: Normal Affect, Appropriate Assessment & Plan Assessment/Plan (1) Viral syndrome: (2) Near syncope: (3) Intractable vomiting with nausea: PLAN: Plan 1. Orthostatic hypotension secondary to nausea and vomiting with dehydration ? Diastolic pressures dropped by over 10 mmHg consistent with orthostatic hypotension ? Continue with IV fluids ? He was noted to be bradycardic on telemetry during vital signs so we will obtain an EKG ? Physical therapy ambulated him and felt that he was unsteady and they had concerns for stroke so we will also obtain an MRI though I think this is a very unlikely diagnosis ? He does note that he was around someone who did have a stomach virus and was ill for 2 days about 7 to 10 days ago 2. Hypertension ? Given the fact that he is here for hypotension we will hold his blood pressure medications, can likely restart on discharge ? He is not on a beta-beth to indicate a reason for the bradycardia 3. Dementia ? Stable ? Continue with his home medications DVT: Lovenox Charges/Coding Visit Charges Inpatient E&M: 86620 Subs Hosp L2
--- NOTE | 2023-04-30 17:40 | EKG12_ITS ---
Test Reason : BRADYCARDIA Blood Pressure : / mmHG Vent. Rate : 042 BPM Atrial Rate : 042 BPM P-R Int : 184 ms QRS Dur : 082 ms QT Int : 456 ms P-R-T Axes : 051 042 042 degrees QTc Int : 380 ms Marked sinus bradycardia with sinus arrhythmia Abnormal ECG Confirmed by PAM FRENCH, AUGUSTIN ([id number]), purchase request editor DELGADO NAIR ([id number]) on 05/07/2023 10:23:19 AM Referred By: Confirmed By:AUGUSTIN OROZCO MD
--- NOTE | 2023-04-30 18:21 | ECHOD_ITS ---
Reason For Study: ARRHYTHMIA Procedure This was a 2D Doppler, Color Flow transthoracic echocardiogram. Exam performed portable in patient room. Left Ventricle Normal LV size. Mild concentric left ventricular hypertrophy. The left ventricular ejection fraction is 65 %. Diastolic function is indeterminate. Right Ventricle Normal right ventricle. Atria The left atrium is moderately enlarged. The right atrium is mildly enlarged. Mitral Valve Trivial mitral valve insufficiency. Tricuspid Valve Mild tricuspid valve insufficiency. Right ventricular systolic pressure estimated to be 50 mmHg. Aortic Valve Mild diffuse aortic valve calcification. Mild aortic stenosis. Trivial aortic valve insufficiency. Pulmonic Valve The pulmonic valve is not well visualized. Great Vessels Mildly dilated aortic root. Pericardium/Pleural No pericardial effusion. MMode/2D Measurements & Calculations LVIDd: 4.7 cm IVSd: 1.2 cm LVOT diam: 2.1 cm LVIDs: 2.5 cm LVPWd: 0.95 cm LVOT area: 3.3 cm2 RVDd: 4.0 cm FS: 48.0 % Ao root diam: 3.8 cm LAV(MOD-bp): 72.1 ml LVAd ap4: 25.3 cm2 LAV(MOD-bp) Indexed: 36.7 ml/m2 LVLd ap4: 7.2 cm LAV(MOD-sp2): 73.8 ml EDV(MOD-sp4): 77.5 ml LAV(MOD-sp4): 70.3 ml EDV(sp4-el): 75.5 ml LVAs ap4: 13.8 cm2 LVLs ap4: 6.0 cm ESV(MOD-sp4): 27.2 ml ESV(sp4-el): 26.9 ml EF(MOD-sp4): 64.9 % EF(sp4-el): 64.3 % LVAd ap2: 25.6 cm2 SV(MOD-sp4): 50.3 ml SV(MOD-sp2): 45.6 ml LVLd ap2: 7.6 cm EDV(MOD-sp2): 76.8 ml EDV(sp2-el): 73.2 ml LVAs ap2: 15.1 cm2 LVLs ap2: 6.1 cm ESV(MOD-sp2): 31.2 ml ESV(sp2-el): 31.8 ml EF(MOD-sp2): 59.4 % SV(sp4-el): 48.5 ml LA dimension(2D): 4.1 cm LA A4 area: 23.3 cm2 RA A4 area: 20.1 cm2 TAPSE: 2.7 cm Time Measurements MV dec time: 0.17 sec Doppler Measurements & Calculations MV E max germain: 95.8 cm/sec Lat Peak E' Germain: 14.2 cm/sec Med Peak E' Germain: 17.6 cm/sec MV A max germain: 59.0 cm/sec E/E' lat: 6.7 E/E' med: 5.4 MV E/A: 1.6 MV V2 max: 86.1 cm/sec Ao V2 max: 216.6 cm/sec MV max P.0 mmHg MV dec slope: 579.1 cm/sec2 Ao max P.8 mmHg MV V2 mean: 44.2 cm/sec Ao V2 mean: 142.9 cm/sec MV mean P.98 mmHg Ao mean P.5 mmHg MV V2 VTI: 28.3 cm Ao V2 VTI: 45.7 cm AV (velocity ratio): 0.59 MVA(VTI): 3.2 cm2 ANATOLIY(I,D): 2.0 cm2 ANATOLIY(V,D): 1.6 cm2 LV V1 max: 107.3 cm/sec SV(LVOT): 90.1 ml PA V2 max: 88.2 cm/sec LV V1 max P.6 mmHg PA max PG (full): 1.2 mmHg LV V1 mean P.7 mmHg LV V1 mean: 78.5 cm/sec LV V1 VTI: 27.2 cm TR max germain: 296.6 cm/sec TR max P.2 mmHg ECHO/Echo Complete Interpretation Summary Mild concentric left ventricular hypertrophy. The left ventricular ejection fraction is 65 %. Diastolic function is indeterminate. The left atrium is moderately enlarged. The right atrium is mildly enlarged. Mild tricuspid valve insufficiency. Right ventricular systolic pressure estimated to be 50 mmHg. Mild aortic stenosis. Mildly dilated aortic root. Ordering Physician: Inocencio Dumont Referring Physician: Osbaldo Bennett Performed By: Rebecca Sandoval RDCS
[2023-05-01 03:00] VITALS: BP 129/61; PULSE 42; RESP 14; TEMP 36.8; O2SAT 97
[2023-05-01 08:12] VITALS: O2SAT 95
[2023-05-01 08:46] VITALS: O2SAT 93
[2023-05-01 09:00] VITALS: BP 119/59; PULSE 55; RESP 18; TEMP 36.7; O2SAT 98
[2023-05-01 09:14] VITALS: O2SAT 93
[2023-05-01] MEDS: Enoxaparin 40 MG/0.4 ML Syringe SC (09:34)
[2023-05-01] MEDS: Memantine Hydrochloride 5 MG Tablet PO (09:34)
[2023-05-01] MEDS: Senna/Docusate Sodium 1 Tablet 2 TABLET PO (09:34)
[2023-05-01] MEDS: Pantoprazole Sodium 40 MG Tablet PO (09:34)
[2023-05-01] MEDS: Polyethylene Glycol 3350 17 GM PACKET PO (09:34)
--- NOTE | 2023-05-01 11:55 | CASEMGMT ---
Addendum entered by Jade Andrew 05/01/23 15:33: Scripts received and RN MARCELLUS in discuss walker at discharge. Patient is agreeable to walker after discussing need with therapy. Patient prefers [facility]. Pateint would like to wait for outpatient and take to [facility] if he would wish to complete. Patient and had no further questions or concerns. Script for outpatient therapy provided in discharge instructions. RN CM sent referral to [facility] and arranged for delivery to patient's room. Original Note: RN CM reviewed progress with therapy and patient walked 250ft contact guard and recommending outaptient therapy. RN CM in to discuss progress with therapy with patient and . Patient and would now like to discharge home with possible outpatient therapy and FWW at discharge. Patient had no further questions or concerns. SW updated regarding cancelling SNF referral to [facility]. CM will continue to follow this patient and plan for a safe discharge.
--- NOTE | 2023-05-01 14:42 | PCM.DC.SUM ---
Providers Date of Admission: 04/30/23 Primary Care Physician: Dr. Osbaldo Bennett MD Reason For Visit: NEAR SYNCOPE Diagnosis Discharge Diagnosis (1) Viral syndrome: Status: Acute Code(s): B34.9 - Viral infection, unspecified (2) Near syncope: Status: Acute Code(s): R55 - Syncope and collapse (3) Intractable vomiting with nausea: Status: Acute Code(s): R11.2 - Nausea with vomiting, unspecified Plan 1. Orthostatic hypotension secondary to nausea and vomiting with dehydration ? Diastolic pressures dropped by over 10 mmHg consistent with orthostatic hypotension ? Continue with IV fluids ? He was noted to be bradycardic on telemetry during vital signs so we will obtain an EKG ? Physical therapy ambulated him and felt that he was unsteady and they had concerns for stroke so we will also obtain an MRI though I think this is a very unlikely diagnosis ? He does note that he was around someone who did have a stomach virus and was ill for 2 days about 7 to 10 days ago 2. Hypertension ? Given the fact that he is here for hypotension we will hold his blood pressure medications, can likely restart on discharge ? He is not on a beta-beth to indicate a reason for the bradycardia 3. Dementia ? Stable ? Continue with his home medications DVT: Lovenox Medications at Discharge Home Medications Vitamin D3 25 mcg PO/SL DAILY 12/24/21 hydrochlorothiazide 25 mg tablet 1 tab PO DAILY 12/24/21 lisinopril 20 mg tablet 1 tab PO DAILY 12/24/21 memantine 5 mg tablet 1 tab PO DAILY 12/24/21 oxymetazoline 0.05 % nasal spray (Nasal [place] (oxymetazoline)) 2 spray NASAL BID #0 mL 12/25/21 Hospital Course Operations None Procedures 2-D Echocardiogram Summary of Care Provided Minutes Spent on Discharge: 42 Hospital Course: Per HPI: NADIR GARCIA, is a 82 M who came to ED, accompanied by his for nausea vomiting and dizziness. It all started today when patient was in the grocery store [employer] he felt dizzy lightheaded and then sat down. Later on he had a good bowel movement which was normal consistent without blood. After that he felt good and then came home. At home he felt nauseous, throwing up, felt dizzy, diaphoretic sweating, cold to touch and tingling sensation in both hands and legs. He had another bowel movement which was not diarrhea. His try to take his blood pressure but he felt too sick therefore came to ED. In ED, his vitals were 129/68, 132/68 heart rate 65/min. His usual heart rate is around 50s. As per the , he had tacos and chicken sandwich with lettuce. No fever. Patient is still having bowel pain, feeling eructations, gas, gagging sensation, emesis with clear fluid Hospital Course: 1. Near syncope secondary to orthostatic hypotension from dehydration due to viral syndrome?NADIR GARCIA, is a 82 M who came to ED, accompanied by his for nausea vomiting and dizziness. It all started today when patient was in the grocery store [employer] he felt dizzy lightheaded and then sat down. Later on he had a good bowel movement which was normal consistent without blood. After that he felt good and then came home. At home he felt nauseous, throwing up, felt dizzy, diaphoretic sweating, cold to touch and tingling sensation in both hands and legs. He had another bowel movement which was not diarrhea. His try to take his blood pressure but he felt too sick therefore came to ED. In ED, his vitals were 129/68, 132/68 heart rate 65/min. His usual heart rate is around 50s. As per the , he had tacos and chicken sandwich with lettuce. No fever. Patient is still having bowel pain, feeling eructations, gas, gagging sensation, emesis with clear fluid 2. Hypertension, dementia chronic medical conditions which complicate his care. His home medications were continued where appropriate Physical Exam Narrative General: Alert, Oriented x3, Cooperative, No apparent distress HEENT: Atraumatic, PERRLA, EOMI, Normocephalic, no nystagmus Oral: Moist Mucosa Neck: Supple, No JVD Lungs: Diminished, Normal air movement, No rhonchi, No wheeze, No rales Cardiovascular: Regular rate, Regular Rhythm, Normal S1, Normal S2, No murmurs Abdomen: Soft, Non Tender, Non-Distended, No Hepato-splenomegaly Extremities: No edema, Capillary Refill Less than 3 Seconds Skin: No rashes, No breakdown Musculoskeletal: No Tenderness to Palpation of Joints or Extremities Neurological: Cranial nerves II-XII grossly intact, Motor Exam 5/5 strength throughout, Sensory exam intact to light touch and pain Psych/Mental Status: Normal Affect, Appropriate Weight / BMI Weight Weight: 165 lb 12.602 oz Body Mass Index (BMI) 22.4 ABG / Lab / Microbiology Data 04/30/23 04:59 04/30/23 04:59 Radiography Diagnostic Testing: Radiology Impression Brain MRI 04/30/23 12:29 IMPRESSION: No acute disease. Left greater than right hemosiderin occipital cortex. Electronically Signed: Blair Rico MD at 20:56 EDT Reading Location ID and State: [facility] / [place] Tel , Service support , Echocardiogram 04/30/23 18:21 Interpretation Summary Mild concentric left ventricular hypertrophy. The left ventricular ejection fraction is 65 %. Diastolic function is indeterminate. The left atrium is moderately enlarged. The right atrium is mildly enlarged. Mild tricuspid valve insufficiency. Right ventricular systolic pressure estimated to be 50 mmHg. Mild aortic stenosis. Mildly dilated aortic root. Ordering Physician: Inocencio Dumont Referring Physician: Osbaldo Bennett Performed By: Rebecca Sandoval RDCS D/C Instructions Discharge Diet: No restrictions Call your doctor if you observe: Fever of 101 or Higher, Shortness of breath, Dizziness, Fainting spells, Swelling in the ankles, Chest pain and Increased palpitations (irregular heartbeat) Meaningful Use Info Meaningful Use Diagnoses (Choose all that apply): None applicable Discharge Plan Admission Admit Date/Time: 04/30/23 16:57 Attending Provider: Inocencio Dumont Primary Care Provider: Osbaldo Bennett Consulting Providers: Kapil Jameson Discharge Orders/Prescriptions Prescriptions: Continued memantine 5 mg tablet 1 tab PO DAILY Patient Comments: TAKE 1 TABLET BY MOUTH ONCE DAILY Vitamin D3 25 mcg PO/SL DAILY oxymetazoline [Nasal [place] (oxymetazoline)] 0.05 % [place],Non-Aerosol 2 spray NASAL BID Qty: 0 0RF Held lisinopril 20 mg tablet 1 tab PO DAILY Hold Instructions: Resume on 05/02/23. Patient Comments: TAKE 1 TABLET BY MOUTH ONCE DAILY hydrochlorothiazide 25 mg tablet 1 tab PO DAILY Hold Instructions: Resume on 05/02/23. Patient Comments: TAKE 1 TABLET BY MOUTH ONCE DAILY Referrals / Follow Up: Osbaldo Bennett MD [Primary Care Provider] - Within 1 Week Disposition Discharge Orders: Discharge Patient (Routine); Ordered 05/01/23 Ordered By: Dr. Inocencio Dumont Charges/Coding Visit Charges Inpatient E&M: 97295 Disch Hosp >30min
[2023-05-01 15:00] VITALS: BP 116/58; PULSE 48; RESP 18; TEMP 36.7; O2SAT 97
== END 2023-05-01 16:22 | disposition home or self-care (01) | DRG 641 ==
LOC: ED 22:58 → PCU 23:35
PROVIDERS: Nurse Practitioner; Admitting Provider Internal Medicine; Emergency Provider Emergency Medicine; PCP Family Medicine; Visit Provider Family Medicine
DX: E86.0 Dehydration (principal); F03.90 Unspecified dementia, unspecified severity, without behavioral disturbance, psychotic disturbance, mood disturbance, and anxiety; B34.9 Viral infection, unspecified; I10 Essential (primary) hypertension; E87.6 Hypokalemia; K29.90 Gastroduodenitis, unspecified, without bleeding; I95.1 Orthostatic hypotension; K59.00 Constipation, unspecified; Z86.16 Personal history of COVID-19; Z66 Do not resuscitate; Z79.899 Other long term (current) drug therapy
CPT/HCPCS: 36415; 70450; 70551; 71045; 74177; 80048; 80053; 81001; 83690; 83735; 84100; 84443; 85025; 93005; 93306; 94668; 96361; 96365; 96372; 96375; 96376; 97162; 97166; 97530; 97535; 99221; 99285; J7030; J7120; Q9967; A4216; G0378; J2405

== ENCOUNTER → 2023-08-23 | Outpatient (CLI) | payer MEDICARE, SELFPAY ==
--- NOTE | 2023-08-23 07:51 | ECHOD_ITS ---
Reason For Study: Syncope and Collapse Procedure This was a 2D Doppler, Color Flow transthoracic echocardiogram. Exam performed in department. Left Ventricle Normal LV size. Left ventricular systolic function is normal. The estimated ejection fraction is 70 %. Stage 1 diastolic dysfunction. No regional wall motion abnormalities noted. Right Ventricle Normal RV size. Normal systolic function. Atria Normal left atrium. Normal right atrium. Hypermobile atrial septum. Bubble contrast study negative for right to left interatrial shunt. Tricuspid Valve Normal tricuspid valve. Aortic Valve Trisinus/trileaflet aortic valve. Mild focal aortic valve calcification. Peak aortic valve gradient 16 mmHg. Mean aortic valve gradient 8.6 mmHg. Mild aortic stenosis. Mild (1+) aortic valve insufficiency. Pulmonic Valve Normal pulmonic valve. Great Vessels Normal aortic root. The pulmonary artery is normal size. Normal inferior vena cava. Pericardium/Pleural No pericardial effusion. Medication Performed a rapid injection of agitated mix of 9 cc saline and 1cc air to assess for atrial septal defect. MMode/2D Measurements & Calculations LVIDd: 4.9 cm IVSd: 0.95 cm LVOT diam: 2.3 cm LVIDs: 2.9 cm LVPWd: 1.0 cm LVOT area: 4.3 cm2 RVDd: 3.7 cm FS: 40.1 % Ao root diam: 3.1 cm LAV(MOD-bp): 49.9 ml LVAd ap4: 25.7 cm2 LAV(MOD-bp) Indexed: 25.1 ml/m2 LVLd ap4: 7.0 cm LAV(MOD-sp2): 64.0 ml EDV(MOD-sp4): 81.0 ml LAV(MOD-sp4): 41.3 ml EDV(sp4-el): 80.5 ml LVAs ap4: 13.0 cm2 LVLs ap4: 5.8 cm ESV(MOD-sp4): 25.7 ml ESV(sp4-el): 24.9 ml EF(MOD-sp4): 68.2 % EF(sp4-el): 69.1 % SV(MOD-sp4): 55.2 ml SV(sp4-el): 55.6 ml LA A4 area: 16.3 cm2 LA dimension(2D): 3.9 cm RA A4 area: 16.6 cm2 TAPSE: 2.7 cm Time Measurements MV dec time: 0.33 sec Doppler Measurements & Calculations MV E max germain: 48.3 cm/sec Lat Peak E' Germain: 8.8 cm/sec Med Peak E' Germain: 5.5 cm/sec MV A max germain: 51.3 cm/sec E/E' lat: 5.5 E/E' med: 8.8 MV E/A: 0.94 Ao V2 max: 203.7 cm/sec AI max germain: 461.0 cm/sec MV dec slope: 147.8 cm/sec2 Ao max P.6 mmHg AI max P.0 mmHg Ao V2 mean: 135.9 cm/sec Ao mean P.6 mmHg AI dec slope: 235.9 cm/sec2 Ao V2 VTI: 51.9 cm AI P1/2t: 572.5 msec AV (velocity ratio): 0.43 ANATOLIY(I,D): 1.8 cm2 ANATOLIY(V,D): 1.9 cm2 LV V1 max: 89.4 cm/sec SV(LVOT): 95.6 ml PA V2 max: 83.1 cm/sec LV V1 max P.2 mmHg LV V1 mean P.9 mmHg LV V1 mean: 64.8 cm/sec LV V1 VTI: 22.4 cm TR max germain: 263.2 cm/sec TR max P.7 mmHg ECHO/Echo Complete Interpretation Summary Hypermobile atrial septum. Normal LV size. Left ventricular systolic function is normal. The estimated ejection fraction is 70 %. Stage 1 diastolic dysfunction. Mean aortic valve gradient 8.6 mmHg. Mild (1+) aortic valve insufficiency. Mild focal aortic valve calcification. Mild aortic stenosis. Bubble contrast study negative for right to left interatrial shunt. Ordering Physician: Osbaldo Bennett Referring Physician: Osbaldo Bennett Performed By: Argenis Juarez, HORTENCIACS, RVT
--- OUTSIDE RECORDS SUMMARY | 2023-08-23 08:21 | XMS RPT_ITS | CCD ---
Author Name Unknown Address [address] [place] [address] [address] [place] [id number] Organization [facility] Care Team Providers Care Machine Candle Molder Name Role Phone SHELDON RIVERA Primary Care Unavailable HILARIO LAGOS Referring Unavailable SHIRLEY SHAVER, DAVID Caceres Attending Unavailable LEONORR, CATE Admitting Unavailable CATE TREADWELL Attending Unavailable SHELDON RIVERA Primary Care Unavailable SELF, SELF Referring Unavailable SHIRLEY SHAVER, DAVID Caceres Referring Unavailable SHELDON RIVERA Primary Care Unavailable SHIRLEY SHAVER, DAVID Caceres Attending Unavailable Results Test Name Value Interpretation Reference Range Facil ity Encounters Encounter Date Encounter Type Care Provider Facility Start: 05-24-2021 ambulatory DAVID WATSON JR. Fac ility:[facility] Start: 04-25-2021 ambulatory SHELDON RIVERA Facility :[facility] Start: 12-07-2020 End: 12-08-2020 ambulatory CATE TREADWELL Facility:[facility] Procedures Date Procedure Procedure Detail Performing Clinician Start: 12-07-2020 Antibody screen SHELDON CORONADO Payers Date Payer Category Payer Medicare [id number] 1940 Unknown [id number] [id number]. [id number] 1940 Unknown [id number] 2.. [id number] 1940 Unknown [id number]. [id number] Clinical Note 12-09-2020 Note Date & Type Note Facility 12-09-2020 Note EXAM: MRI BRAIN WITH AND WITHOUT CONTRAST, 12/08/2020 09:34 AM CLINICAL INDICATIONS: Evaluation for a neoplastic process at the cortical/subcortical junction. Age: 80 years Gender: Male COMPARISON: CT head December 08, 2020 at 3:50 AM. TECHNIQUE: A series of multisequence, multiplanar images of the brain are obtained both before and after intravenous administration of gadolinium-based contrast using standard protocol. Type: gadoterate Meglumine (DOTAREM) 5 MMOL/10ML injection 3-60 mL Dose: 15 mL FINDINGS: Intracranial: A small intra-axial hematoma is identified posteriorly in the left occipital lobe, measuring approximately 2.2 x 1.0 cm on axial imaging. There is faint intrinsic T1 shortening along the periphery of this finding, but most of the hematoma appears isointense on T1-weighted imaging and hyperintense on T2-weighted and FLAIR imaging. Mild surrounding edema. There is diffusion restriction and patchy magnetic susceptibility within this hematoma, with several punctate and small curvilinear foci of magnetic susceptibility seen elsewhere in the posterior cerebral hemispheres bilaterally. The dominant left occipital lobe lesion corresponds to a hyperdense finding on CT and is consistent with an acute hematoma. On postcontrast imaging, there is faint curvilinear enhancement near the left occipital lobe hematoma that likely represents mildly asymmetrically prominent vessels, likely veins, given their contiguity with the left transverse sinus. It is uncertain whether this represents a developmental venous anomaly or other vascular malformations versus venous congestion. No definite nodular enhancement is identified to suggest an underlying neoplastic lesion. Mild effacement of the sulci near this finding. No midline shift. Scattered foci of T2 prolongation in the periventricular and deep white matter are nonspecific but compatible with chronic microvascular changes. Sellar and parasellar structures are unremarkable. No abnormal epidural or subdural collection. Ventricles and sulci are mildly prominent, compatible with parenchymal volume loss. Skull and Extracranial: Minimal mucosal thickening is present in several paranasal sinuses. Bilateral cataract surgery. The skull and extracranial structures are otherwise unremarkable. IMPRESSION: 2.2 x 1.0 cm intra-axial hematoma, likely acute, in the left occipital lobe. On postcontrast imaging, there is faint curvilinear enhancement near the hematoma that likely represents mildly asymmetrically prominent vessels, likely veins, given their contiguity with the left transverse sinus. It is uncertain whether this represents a developmental venous anomaly or other vascular malformations versus venous congestion. No definite nodular enhancement is identified to suggest an underlying neoplastic lesion. Follow-up MR imaging in several months, after resolution of the acute hematoma, may be helpful. No definite nodular enhancement is identified to suggest an underlying neoplastic lesion. [facility] Summary Purpose Family History No Family History Records Found Advance Directives No Advanced Directives Records Found Additional Source Comments (unrecognized sect ion and content) No Status Records Found INFORMATION SOURCE (unrecogn ized section and content) FOR RECORDS PERTAINING TO PATIENTS WHO ARE OR HAVE BEEN ENROLLED IN A CHEMICAL DEPENDENCY/SUBSTANCEABUSE PROGRAM, SOME INFORMATION MAY BE OMITTED. This clinical summary was aggregated from multiple sources. Caution should be exercised in using it in the provision of clinical care. This summary normalizes information from multiple sources, and as a consequence, information in this document may materially change the coding, format and clinical context of patient data. In addition, data may be omitted in some cases. CLINICAL DECISIONS SHOULD BE BASED ON THE PRIMARY CLINICAL RECORDS. [employer] [facility]. provides no warranty or guarantee of the accuracy or completeness of information in this document.
== END | disposition home or self-care (01) ==
LOC: CVS 07:50
PROVIDERS: PCP Family Medicine; Referring Provider Family Medicine; Visit Provider Family Medicine
DX: R55 Syncope and collapse (principal)
CPT/HCPCS: 93306; A4216

== ENCOUNTER → 2023-08-26 | Outpatient (CLI) | payer MEDICARE, SELFPAY ==
--- OUTSIDE RECORDS SUMMARY | 2023-08-26 10:18 | XMS RPT_ITS | CCD ---
Author Name Unknown Address [address] [place] [address] [address] [place] [id number] Organization [facility] Care Team Providers Care County Administrator Name Role Phone SHELDON RIVERA Primary Care [...] Start: 05-24-2021 ambulatory DAVID WATSON JR. Fac ility:[facility] Start: 04-25-2021 ambulatory SHELDON RIVERA Facility :[facility] Start: 12-07-2020 End: 12-08-2020 ambulatory CATE TREADWELL Facility:[facility] Procedures Date Procedure Procedure Detail Performing Clinician Start: 12-07-2020 Antibody screen SHELDON CORONADO Payers Date Payer Category Payer Medicare [id number] 1940 Unknown [id number] 1940 Unknown [id number] 2.. [id number] 1940 Unknown [id number]. [id number] Clinical Note 12-09-2020 Note Date & Type [...] identified to suggest an underlying neoplastic lesion. [facility] Summary Purpose Family History No [...] BE BASED ON THE PRIMARY CLINICAL RECORDS. [facility]. provides no warranty or guarantee of the accuracy or completeness of information in this document.
[2023-08-26 11:06] LABS: Anion Gap 5 (5-15); BUN 19 mg/dL (7-18); BUN/Creat Ratio 14.4 RATIO (10-20); Calcium,Total 9.2 mg/dL (8.5-10.1); Chloride 106 mmol/L (98-107); Cholesterol 239 mg/dL (200); Creatinine, Serum 1.32 mg/dL (0.70-1.30); EST Glomerular Filtration Rate 55 mL/min (>60); Est Glom Filt Rate - Afr Amer 67 mL/min (>60); Glucose 85 mg/dL (74-106); High Density Lipoprotein 75 mg/dL; Potassium 4.2 mmol/L (3.5-5.1); Sodium Level 140 mmol/L (136-145); Triglycerides 107 mg/dL; Very Low Density Lipoprotein 21 mg/dL (5-40)
== END | disposition home or self-care (01) ==
PROVIDERS: PCP Family Medicine; Referring Provider Family Medicine; Visit Provider Family Medicine
DX: I10 Essential (primary) hypertension (principal)
CPT/HCPCS: 36415; 80048; 80061

== ENCOUNTER → 2023-09-25 | Outpatient (CLI) | payer MEDICARE, SELFPAY ==
--- NOTE | 2023-09-25 12:44 | STRESSREP ---
Stress Test Report Pharmacologic myocardial perfusion stress test. 83-year-old man with a history of syncope Resting EKG demonstrates sinus bradycardia with a rate of 50 bpm. Resting blood pressure is 182/88 mmHg. 0.4 mg of regadenoson was infused per usual protocol followed by rapid intravenous saline flush injection. Continuous EKG monitoring was performed. The maximum heart rate was 83 bpm which was 60% of max impacted heart rate the maximum workload was 1 metabolic equivalent. At rest there were no ST or T wave changes noted to suggest ischemia and at peak infusion nonspecific ST changes were noted which did not meet the criteria for ischemia. No clinical angina is noted. The final blood pressure was 160/72 mmHg. Myocardial perfusion protocol. 12 point mCi of technetium 99m sestamibi was injected at rest. 0.4 mg of regadenoson was infused per usual protocol. At peak infusion 36 mCi of technetium 99m sestamibi was injected stress images were obtained stress and rest images were reconstructed and compared in the short axis vertical long and horizontal long axis. Gated images were also obtained. Perfusion SPECT analysis: Review of the stress images demonstrate normal uptake of tracer noted in all areas of the myocardium. The resting images similar demonstrated normal uptake of tracer noted in all areas of the myocardium. No areas of reversibility are noted to suggest ischemia and no previous infarct is noted. Gated SPECT analysis: The gated ejection fraction is 69. Conclusion: Normal pharmacologic myocardial perfusion stress test. Preserved ejection fraction.
== END | disposition home or self-care (01) ==
LOC: CVS 06:28
PROVIDERS: PCP Family Medicine; Referring Provider Internal Medicine Cardiovascular Disease; Visit Provider Internal Medicine Cardiovascular Disease
DX: R94.31 Abnormal electrocardiogram [ECG] [EKG] (principal); R55 Syncope and collapse
CPT/HCPCS: 78452; 93017; A9500; A4216; J2785

== ENCOUNTER → 2023-11-08 | Outpatient (CLI) | payer MEDICARE, SELFPAY ==
--- NOTE | 2023-11-08 11:20 | RAD_ITS ---
HISTORY: Pre-operative: PPM Insertion. TECHNIQUE: XR Chest 2 Views. COMPARISON: 04/29/2023. FINDINGS: CARDIOMEDIASTINAL BORDERS: Cardiac silhouette within normal limits in size. Mediastinal contour unremarkable with calcification of the aortic knob. LUNGS: Radiographically clear. PLEURA: No pleural effusion or pneumothorax seen. OSSEOUS STRUCTURES: Degenerative change. RAD/Chest PA and Lateral IMPRESSION: No acute cardiopulmonary process identified. Electronically Signed: Sri Zheng MD at 9:28 EDT ,
[2023-11-08 11:37] LABS: Bacteria 0 SEEN /hpf (None Seen); Mucous, Urine 0 SEEN /hpf (<or=2+); Red Blood Cells-Urine 0 SEEN /hpf (0-5); Squamous Epithelial Cells - UA 0 SEEN /hpf (0-5); White Blood Cells 0 SEEN /hpf (0-5)
[2023-11-08 13:10] LABS: Color, Urine Yellow (Yellow); Glucose, Dipstick Normal (Normal); Ketone-Dipstick Negative (Negative); Leukocyte Esterase-Dipstick Negative /ul (Negative); Nitrite-Dipstick Negative (Negative); Occult Blood-Urine Negative /ul (Negative); Protein-Dipstick Negative (Negative); Urine Bilirubin Dipstick Negative (Negative); Urine Clarity Clear (Clear); Urine Urobilinogen Normal (Normal)
[2023-11-08 13:11] LABS: Hematocrit 38.2 % (40-54); Hemoglobin 12.5 g/dL (13.0-16.5); Mean Corp Hgb Conc 32.7 g/dL (32-36); Mean Corpuscular Hgb 32.1 pg (27.0-32.0); Mean Corpuscular Volume 98.2 fL (80-94); Mean Platelet Vol. 11.4 fl (6.2-12.0); Platelet Count 189 K/mm3 (150-450); RBC Distribution Width CV 13.4 % (11.6-14.6); RBC Distribution Width SD 48.1 fl (35.1-43.9); Red Blood Count 3.89 M/mm3 (4.6-6.2)
[2023-11-08 13:47] LABS: Anion Gap 4 (5-15); BUN 20 mg/dL (7-18); Calcium,Total 9.2 mg/dL (8.5-10.1); Chloride 105 mmol/L (98-107); Creatinine, Serum 1.25 mg/dL (0.70-1.30); EST Glomerular Filtration Rate 59 mL/min (>60); Est Glom Filt Rate - Afr Amer 71 mL/min (>60); Glucose 87 mg/dL (74-106); Potassium 4.3 mmol/L (3.5-5.1); Sodium Level 139 mmol/L (136-145)
== END | disposition home or self-care (01) ==
LOC: RAD 11:18
PROVIDERS: PCP Family Medicine; Referring Provider Nurse Practitioner Family; Visit Provider Nurse Practitioner Family
DX: I49.5 Sick sinus syndrome (principal); I10 Essential (primary) hypertension; R55 Syncope and collapse
CPT/HCPCS: 36415; 71046; 80048; 81001; 85027

== ENCOUNTER 2023-12-09 14:45 | Observation (INO) | payer MEDICARE, SELFPAY ==
[2023-12-06 09:25] VITALS: BMI 22.4
--- NOTE | 2023-12-09 14:47 | CL.IE_ITS ---
Patient: NADIR GARCIA Study Date: 12/09/2023 Performing: Tayo Kruger MD : 1940 Age: 83 Gender: male PROCEDURES PERFORMED [id number])INITIAL PACER INSERT+DUAL LEADS INDICATIONS Sinoatrial node dysfunction/Sick sinus syndrome PROCEDURE DETAILS The patient was brought to the Catheterization Lab in the postabsorptive nonsedated state. Informed consent was obtained prior to the procedure. Local anesthetic was given subcutaneously to the left upper chest area with Lidocaine 2%. Access was achieved and a guidewire was advanced into the left subclavian vein. Incision was made to the left upper chest. PPM ventricular lead was inserted / positioned to right ventricular apex. PPM ventricular lead testing performed. PPM ventricular lead testing performed. PPM atrial lead was inserted / positioned to the right atrial appendage. The Ventricular PM lead sutured in place with 2-0 Silk. The Atrial lead sutured in place with 2-0 Silk. PPM generator was attached to the lead(s) and inserted into the pocket. Device pocket was irrigated with antibiotic, Ancef 1gm. Subcutaneous closure was completed with 3-0 Vicryl. Skin closure was completed with 4-0 Vicryl. Steri-strips applied to Lt chest area. The patient tolerated the procedure well. Estimated Blood Loss: 10 ml's IMPLANTED / EX-PLANTED DEVICES IMPLANTED DEVICE(S): PPM Ventricular lead - Order Checker Packer Processer: [employer], Model # 7842 , Serial # [id number] PPM Atrial lead - Order Checker Packer Processer: [employer], Model # 7841 , Serial # [id number] PPM Generator - Order Checker Packer Processer: [employer], Model # L111 , Serial # [id number] DEVICE PARAMETERS ATRIAL LEAD PARAMETERS: P wave- 5.5 (mV) Current- 1.1 (mA) threshold- 0.7 (V) impedence- 637 (OHMS) VENTRICULAR LEAD PARAMETERS: R wave- 16.1 (mV) Current- 0.8 (mA) threshold- 0.6 (V) impedence- 758 (OHMS) DEVICE PARAMETERS: Mode- DDD Lower rate- 60 Upper rate- 130 CONCLUSIONS / RECOMMENDATIONS Device Conclusions: Successful implantation of a dual chamber pacemaker Device Recommendations: Follow up with Primary Care Physician PROCEDURE MEDICATIONS Versed 1 mg IV Fentanyl 50 mcg IV Versed 1 mg IV Antibiotic given in appropriate timeframe. Ancef 2 Gm IV @ 12/09/2023 13:18:44 Signed By Tayo Kruger MD On 12/09/2023 14:46:30 Tayo Kruger MD
[2023-12-09 14:55] VITALS: BP 175/81; PULSE 60; TEMP 35.9; O2SAT 96; BMI 22.4
[2023-12-09] MEDS: Tamsulosin HCl 0.4 MG Capsule PO (17:04)
[2023-12-09 21:46] VITALS: BP 146/74; PULSE 62; RESP 16; TEMP 36.7; O2SAT 97
[2023-12-10] MEDS: Acetaminophen 325 MG Tablet 650 MG PO (02:37)
[2023-12-10 02:41] VITALS: BP 158/74; PULSE 62; RESP 16; TEMP 36.7; O2SAT 95
--- NOTE | 2023-12-10 05:55 | RAD_ITS ---
INDICATION: Post permanant ICD/Pacemaker -- inspiration/expiration. Arms Down. Wet read to MD EXAMINATION/TECHNIQUE: X-RAY - XR Chest 3 Views COMPARISON: CR ChestMay 3 2023 FINDINGS: LINES/DEVICES: Pacemaker on the left. LUNGS: No consolidation, edema or effusion. No pneumothorax. MEDIASTINUM AND CARDIOVASCULAR STRUCTURES: Cardiac silhouette not enlarged. Central airways and mediastinal contour are unremarkable. BONES AND SOFT TISSUES: Unremarkable. RAD/Chest 3 View IMPRESSION: No radiographic evidence of acute cardiopulmonary disease. Electronically Signed: Kathryn Miranda MD at 7:09 EDT ,
--- NOTE | 2023-12-10 08:54 | PCM.PN.CARD ---
Subjective Subjective Patient seen and evaluated. Appears to be doing well. Objective Data Vital Signs: Vital Signs Temp Pulse Resp BP Pulse Ox O2 Del Method 98.1 F 62 16 158/74 H 95 Room Air 12/10/23 02:41 12/10/23 02:41 12/10/23 02:41 12/10/23 02:41 12/10/23 02:41 12/10/23 07:41 Oxygen Delivery Method Room Air Weight: 165 lb Body Mass Index (BMI) 22.4 Intake & Output: Intake and Output for Last 24 Hours 12/08/23 12/09/23 12/10/23 23:59 23:59 23:59 Output Total 380 / 380 Balance -380 / -380 Cardiology Labs/Tests Rhythm: EKG: ECHO: Stress Test: Cardiac Cath: PCI: CT Surgery: Holter monitor: EPS: PPM: CXR: Chest CT Scan: Radiography Diagnostic Testing: Radiology Impression Chest X-Ray 12/10/23 05:55 IMPRESSION: No radiographic evidence of acute cardiopulmonary disease. Electronically Signed: Kathryn Miranda MD at 7:09 EDT , Physical Exam Const alert, oriented x3 and no apparent distress General Appearance: cooperative HEENT hearing grossly normal bilaterally Head and Scalp: atraumatic Eyes EOMs intact bilaterally Neck General: normal visual inspection Chest inspection of chest normal and palpation of chest normal Resp normal respiratory effort Auscultation: clear to auscultation bilaterally Cardio regular rate, regular rhythm, S1 normal heart sound and S2 normal heart sound Jugular Venous Distention: JVD GI normal to inspection, nondistended, normoactive bowel sounds Extremity normal capillary refill and no pedal edema Peripheral Pulses: Yes pulses 2+ throughout and femoral pulses present Skin no rashes or lesions noted Neuro oriented x3 and CN's II-XII intact bilaterally Psych Appearance: grossly normal and appropriate Assessment & Plan Assessment/Plan (1) Sick sinus syndrome: PLAN: Patient is status post permanent pacemaker implantation. Pacemaker evaluation this morning demonstrates normal function. Chest x-ray demonstrates adequate position with no pneumothorax. Outpatient follow-up will be arranged.
--- NOTE | 2023-12-10 08:55 | DCINST_ITS ---
Discharge Instructions Diet Discharge Diet: No restrictions (as you feel able. No excessive stretching. No lifting your arm over your head (keep elbow below shoulder level) until seen for your pacemaker check. Do not lift your elbow away from your side until you are seen for your first visit. Keep the arm sling on if it helps remind you not to lift your arm.) Activity Discharge Activity: May Not Drive May shower in (days): 2 Additional Activity Instructions:: May shower or bathe on [day 3]. Do not scrub the incision or soak in the tub. Just wash with soap and let the water run over the incision. Gently pat dry with towel. Medications: Take your pain medication as directed. Refer to your discharge instruction sheet for a list of medications you are to take. Dressing / Incision Call your doctor if your incision/area has: Continuous Slow Oozing, Sudden Increased Bleeding, Increased Pain/ Swelling, Increased Redness, Foul Smelling Discharge and Swelling at the incision site Call your doctor if you observe: Fever of 101 or Higher, Shortness of breath, Dizziness, Fainting spells, Swelling in the ankles, Chest pain, Prolonged hiccupping and Increased palpitations (irregular heartbeat) Suture Line Care: Avoid Pulling/Pushing and Avoid Pinching/Bending Cleanse incision/area with: Do not get Incision Wet and Keep Dressing Clean & Dry Additional Dressing/Incision Instructions:: When dressing is removed, wash and dry incision. Keep covered with a light bandage if it is rubbing against your clothing. Do not cover the incision with an airtight bandage. Change the bandage daily. Do not remove steri strips. The strips will fall off on their own. Follow Up Care Please Follow Up With: Tayo Kruger MD When: December 15 at 11 AM. Test Results: Test results from this visit will be discussed in further detail at your follow- up appointment, if applicable. Discharge Plan Admission Admit Date/Time: 12/09/23 14:45 Attending Provider: Tayo Kruger Primary Care Provider: Osbaldo Bennett Discharge Orders/Prescriptions Prescriptions: No Action tamsulosin 0.4 mg capsule 0.4 mg PO DAILY Patient Comments: TAKE 1 CAPSULE BY MOUTH ONCE DAILY donepezil 10 mg tablet 10 mg PO DAILY Patient Comments: TAKE 1 TABLET BY MOUTH ONCE DAILY hydrochlorothiazide 25 mg tablet 12.5 mg PO DAILY polyethylene glycol 3350 [Miralax] 17 gram/dose powder 17 g PO DAILY cholecalciferol (vitamin D3) 50 mcg (2,000 unit) tablet 50 mcg PO DAILY lisinopril 20 mg tablet 1 tab PO DAILY Patient Comments: TAKE 1 TABLET BY MOUTH ONCE DAILY Referrals / Follow Up: Osbaldo Bennett MD [Primary Care Provider] - Disposition Disposition (needs filled in before D/C Order can be placed): Home, Self Care
--- NOTE | 2023-12-10 09:06 | CASEMGMT ---
DC order placed on this OBS pt. 6-Click is 24. RN CM to pt room at this time and pt denies home going needs. Pt states that he has great family support. Pt states that he feels safe going home today with no additional needs.
[2023-12-10 09:26] VITALS: BP 160/75; PULSE 60; RESP 16; TEMP 36.3; O2SAT 97
[2023-12-10] MEDS: Lisinopril 20 MG Tablet PO (09:31)
[2023-12-10] MEDS: hydroCHLOROthiazide 12.5mg 12.5 MG PO (09:31)
[2023-12-10] MEDS: Donepezil HCl 10 MG Tablet PO (09:31)
[2023-12-10] MEDS: Cholecalciferol (VIT D3) 25 MCG TABLET (1,000 UNITS) 50 MCG PO (09:31)
== END 2023-12-10 08:55 | disposition home or self-care (01) ==
LOC: PCU 15:00
PROVIDERS: Admitting Provider Internal Medicine Cardiovascular Disease; PCP Family Medicine; Referring Provider Internal Medicine Cardiovascular Disease; Visit Provider Internal Medicine Cardiovascular Disease
DX: Z45.018 Encounter for adjustment and management of other part of cardiac pacemaker (principal); I49.5 Sick sinus syndrome; Z87.891 Personal history of nicotine dependence; R55 Syncope and collapse; Z86.79 Personal history of other diseases of the circulatory system
CPT/HCPCS: 33208; 71047; 99152; 99153; 99221; J7040; J7050; C1894; G0378

== ENCOUNTER → 2023-12-11 | Outpatient (CLI) | payer MEDICARE, SELFPAY ==
--- NOTE | 2023-12-11 12:29 | VDUE_ITS ---
Reason For Study: Left pain and swelling Left Proximal Left jugular vein is spontaneous, widely patent, phasic, with no intraluminal echogenicity noted. Left subclavian vein is spontaneous, widely patent, phasic, with no intraluminal echogenicity noted. Subclavian vein visualized in segments due to bandage from PPM implant 12/09/23. Left Arm Left axillary vein is spontaneous, patent, phasic, competent, compressible and demonstrates augmentation. Left brachial vein is compressible. Left cephalic vein is compressible. Left basilic vein is compressible. Left Lower Arm Left radial vein is compressible. Left ulnar vein is compressible. Patient Safety Preliminary report given to Christine HOUSER. VL/Venous Duplex US, Unilateral Interpretation Summary Deep veins of the left upper extremity are patent and compressible segmentally. There is no evidence of deep vein thrombosis. Superficial veins of the left upper extremity are patent and compressible segme ntally. There is no evidence of superficial vein thrombosis. Limited due to dressings. Ordering Physician: Tayo Kruger Referring Physician: Osbaldo Bennett Performed By: Jade Sims RVT ???
== END | disposition home or self-care (01) ==
LOC: CVS 12:29
PROVIDERS: PCP Family Medicine; Referring Provider Internal Medicine Cardiovascular Disease; Visit Provider Internal Medicine Cardiovascular Disease
DX: Z95.0 Presence of cardiac pacemaker (principal); M79.89 Other specified soft tissue disorders; M79.605 Pain in left leg
CPT/HCPCS: 93971

== ENCOUNTER → 2024-03-26 | Outpatient (CLI) | payer MEDICARE, SELFPAY ==
[2024-03-26 15:33] LABS: Anion Gap 6 (5-15); BUN 23 mg/dL (7-18); Calcium,Total 9.1 mg/dL (8.5-10.1); Chloride 106 mmol/L (98-107); Cholesterol 209 mg/dL (200); Creatinine, Serum 1.28 mg/dL (0.70-1.30); EST Glomerular Filtration Rate 57 mL/min (>60); Est Glom Filt Rate - Afr Amer 69 mL/min (>60); Glucose 123 mg/dL (74-106); High Density Lipoprotein 72 mg/dL; PSA,Total - Annual Screen 3.28 ng/mL (0.00-4.00); Potassium 4.4 mmol/L (3.5-5.1); Sodium Level 137 mmol/L (136-145); Triglycerides 122 mg/dL; Very Low Density Lipoprotein 24 mg/dL (5-40)
== END | disposition home or self-care (01) ==
LOC: MFPLAB 11:28
PROVIDERS: PCP Family Medicine; Visit Provider Family Medicine
DX: Z00.00 Encounter for general adult medical examination without abnormal findings (principal); Z13.6 Encounter for screening for cardiovascular disorders; Z12.5 Encounter for screening for malignant neoplasm of prostate
CPT/HCPCS: 36415; 80048; 80061; 84153; G0103

== ENCOUNTER 2024-12-04 09:40 | Emergency (ER) | payer MEDICARE, SELFPAY ==
[2024-12-04 09:41] VITALS: BP 177/82; PULSE 63; RESP 18; TEMP 36.4; O2SAT 98; BMI 22.0
--- NOTE | 2024-12-04 09:48 | EX.ED.DYSGE1 ---
HPI History of Present Illness Chief Complaint: GI Bleed Informant: patient and spouse/S.O. Narrative Narrative: 84-year-old male presenting to the emergency room chief complaint of mucousy stools and abdominal pain. Patient states for the past year he has had crampy significant abdominal pain that comes and goes. He notes increasing bowel movements sometimes 10 to 15/day that he describes as mucousy brown and lately has been seeing blood. He states that he does intermittently have some constipation. He denies any weight loss or fevers. He states he saw a raised printer over the wintertime and has tried various diarrhea medications. He has never had a colonoscopy. He states that he called his primary care doctor today and the office told him to come to emergency for evaluation. He has tried to follow-up with gastroenterology but states the offices are closed and no one is returning calls. He states that he and his lack direction on what to do and are becoming increasingly frustrated with the process. [facility] Medical History PAF (paroxysmal atrial fibrillation) Pain and swelling of left elbow Pain and swelling of forearm Presence of cardiac pacemaker Sick sinus syndrome Wenckebach Orthostatic hypotension Vitamin D deficiency Gilbert disease Sleep apnea BPH (benign prostatic hyperplasia) Erectile dysfunction Cerebral amyloid angiopathy Cerebral infarction, unspecified Brain bleed Hypertension COVID-19 Dementia Skin cancer (melanoma) Skin cancer Home Medications ?Medication ?Instructions ?Recorded ?Last Taken ?Type lisinopril 20 mg tablet 1 tab PO DAILY 12/24/21 12/03/24 History donepezil 10 mg tablet 10 mg PO DAILY 08/02/23 12/03/24 History tamsulosin 0.4 mg capsule 0.4 mg PO DAILY 08/02/23 12/03/24 History hydrochlorothiazide 25 mg tablet 12.5 mg PO DAILY 08/28/23 12/03/24 History cholecalciferol (vitamin D3) 50 50 mcg PO DAILY 11/08/23 12/03/24 History mcg (2,000 unit) tablet dicyclomine 20 mg tablet 20 mg PO BID 12/04/24 Unknown History methylcellulose (laxative) PO 12/04/24 12/03/24 History Allergy/AdvReac Type Severity Reaction Status Date / Time No Known Allergies Allergy Verified 12/04/24 10:57 Family History Sister Heart disease Hypertension CVA (cerebral vascular accident) Brother Heart disease Father Heart disease Surgical History History of lumpectomy of left breast Social History Smoking Status: Former smoker how long ago did patient quit smokin years ago alcohol intake: never substance use type: does not use caffeine: Yes Type: coffee Number of servings: 1 ROS ROS ED Constitutional Constitutional ED: Denies chills, fever(s) or weight loss Eyes Eyes: Denies change in vision or diplopia ENT ENT ED: Denies ear pain, rhinorrhea or sore throat Cardiovascular Cardiovascular: Denies chest pain, orthopnea, palpitations or racing heartbeat Respiratory/Chest Respiratory/Chest: Denies cough, dyspnea or orthopnea Gastrointestinal Gastrointestinal: Reports diarrhea and other Details: Mucousy stools ; Denies abdominal pain, nausea or vomiting Genitourinary Genitourinary ED: Denies dysuria, hematuria or urinary frequency Musculoskeletal Musculoskeletal: Denies arthralgias or myalgias Integumentary Denies abscess or rash Neurologic Neurologic: Denies headache(s) or weakness Psychiatric Psychiatric: Denies anxiety, depression, suicidal ideation or suicidal thoughts Endocrine Endocrinology: Denies polydipsia, polyphagia or polyuria Allergic/Immunologic Allergic/Immunologic ED: Denies mouth swelling, tongue swelling or urticaria EXAM Physical Exam Const Vital Signs: 12/04/24 09:41 12/04/24 11:40 12/04/24 12:06 Temperature 97.6 F L 98.6 F Temperature Source Oral Pulse Rate 63 80 80 Respiratory Rate 18 18 18 Blood Pressure 177/82 H 132/78 H 132/78 H Blood Pressure Mean 113 96 96 Pulse Ox 98 98 98 Oxygen Delivery Method Room Air Positive well nourished and well developed General Appearance ED: well developed and NAD HEENT Reports normocephalic, head/scalp atraumatic and moist mucous membranes Eyes PERRL and EOMs intact bilaterally Neck no lymphadenopathy, supple and no JVD Resp normal respiratory effort and clear to auscultation bilaterally Cardio regular rate, regular rhythm and no murmurs GI normal to inspection, nondistended, normoactive bowel sounds and non-tender Palpation: soft Back/Spine no CVA tenderness and normal ROM Extremity normal to inspection General Extremety ED: Negative for edema General Extremity: Negative for edema Neuro oriented x3 and CN's II-XII intact bilaterally Sensorium / Orientation: alert Motor Exam: strength 5/5 throughout Psych mental status grossly normal Mood & Affect: Negative for depressed or tearful Skin no rashes or lesions noted and no wounds MDM MDM MDM Narrative Medical decision making narrative: Differential diagnosis includes but not limited to infectious diarrhea colitis diverticulitis liver dysfunction pancreatic dysfunction I spoke with Dr. Emmanuel from gastroenterology. We are going to obtain a blood work and a CT of the abdomen pelvis. If these are negative for anything that would require admission he will be able to follow-up on an expedited basis as an outpatient. Basic blood work shows a white count of 5.3 hemoglobin 12.7 platelet count of 171. BMP shows a glucose of 97 CRP is less than 3 lipase 62 ESR is 12 amylase 60 normal LFTs except for direct bilirubin at 0.4 with a total bili of 1.07. Transaminases are normal. CT of the abdomen pelvis demonstrates some rectosigmoid inflammation. I again spoke with Dr. Emmanuel. We have secured an appointment on Saturday. As this has been an ongoing issue I do not feel antibiotics are strongly indicated and as this is an undifferentiated colitis we are going to steroids at this time. Patient and his are updated with the above findings and plan and are comfortable with that. History & Record Review Discussion w/independent historian: Patient and Significant other Additional record(s) reviewed:: Prior outpatient record, Prior ED visit and Prior labs Lab Data Attestation: I reviewed the patient's lab results. Labs: Laboratory Results - last 24 hr 12/04/24 10:19 WBC 5.3 RBC 3.90 L Hgb 12.7 L Hct 36.5 L MCV 93.6 MCH 32.6 H MCHC 34.8 RDW Std Deviation 45.7 H RDW Coeff of [place] 13.4 Plt Count 171 MPV 10.7 Immature Gran % (Auto) 0.200 Neut % (Auto) 56.9 Lymph % (Auto) 27.9 Mckean % (Auto) 9.5 Eos % (Auto) 4.7 Baso % (Auto) 0.8 Absolute Neuts (auto) 3.0 Absolute Lymphs (auto) 1.47 Nucleated RBC % 0 ESR 12 Sodium 137 Potassium 3.8 Chloride 103 Carbon Dioxide 23.6 Anion Gap 11 BUN 17 Creatinine 1.18 Estim Creat Clear Calc 48.55 L Est GFR (MDRD) Non-Af 61 BUN/Creatinine Ratio 14.2 Glucose 97 Calcium 9.2 Total Bilirubin 1.07 Direct Bilirubin 0.40 H AST 27 ALT 14 Alkaline Phosphatase 82 C-React Prot Ext Range < 3.00 Total Protein 6.7 Albumin 4.0 Globulin 2.7 Amylase 60 Lipase 62 Radiography Diagnostic Testing: Clinical Impression(s) from Imaging Studies Abdomen/Pelvis CT 12/04/24 10:07 IMPRESSION: Findings suggestive of colitis of the rectosigmoid colon with a small amount of free fluid in the pelvis. Large amount of fecal material is seen throughout the colon. Diffuse bladder wall thickening with evidence of enlargement of the prostate with indentation of the bladder base. Reading Location: [place] [id number] Management Discussion w/another healthcare provider: Call Out Operator (Dr. Emmanuel (gastroenterology)) Discharge Plan Triage Chief Complaint: GI Bleed ED Provider: Marcus Mensah Dx/Rx/DC Orders Clinical Impression: Colitis, Abdominal pain, Diarrhea Instructions: ED Understanding Colitis Prescriptions: No Action tamsulosin 0.4 mg capsule 0.4 mg PO DAILY Patient Comments: TAKE 1 CAPSULE BY MOUTH ONCE DAILY donepezil 10 mg tablet 10 mg PO DAILY Patient Comments: TAKE 1 TABLET BY MOUTH ONCE DAILY hydrochlorothiazide 25 mg tablet 12.5 mg PO DAILY cholecalciferol (vitamin D3) 50 mcg (2,000 unit) tablet 50 mcg PO DAILY lisinopril 20 mg tablet 1 tab PO DAILY Patient Comments: TAKE 1 TABLET BY MOUTH ONCE DAILY dicyclomine 20 mg tablet 20 mg PO BID methylcellulose (laxative) [Citrucel] PO Primary Care Provider: Osbaldo Bennett Referrals: Osbaldo Bennett MD [Primary Care Provider] - Jose Emmanuel DO [Med Staff - Active Staff] - Keep Kian appointment Print Language: Romanian Disposition Disposition: Home, Self Care Discharge Date/Time: 12/04/24 12:12
--- NOTE | 2024-12-04 10:07 | CT_ITS ---
PROCEDURE: ABDOMEN/PELVIS W IV CONT ONLY 12/04/2024 REASON FOR EXAM: COLITIS TECHNIQUE: Abdomen and pelvis CT with intravenous contrast. Coronal and Sagittal reconstruction series were provided. PATIENT PREPARATION: Per protocol ORAL CONTRAST TYPE: None. CONTRAST: Isovue-300 VOLUME: 100 mL One or more dose reduction techniques were used (e.g., Automated exposure control, adjustment of the mA and/or kV according to patient size, use of iterative reconstruction technique. RADIATION DOSE SUMMARY: CTDlvol: 6.6 mGy DLP: 523.03 mGycm COMPARISON: Prior study dated April 29, 2023. FINDINGS: Lung bases: Mild dependent atelectasis. Coronary artery calcification. Pacemaker device is seen. Liver: Normal size. No mass. Gallbladder: Unremarkable Spleen: Normal size. Pancreas: Normal size without evidence of mass surrounding inflammation or ductal dilation. Adrenals: Unremarkable Kidneys: Normal renal sizes. No hydronephrosis. Bladder: Diffuse bladder wall thickening. Prostatic enlargement with indentation at the bladder base. Central prostatic calcifications. Bowel: Large amount of fecal material is seen in the colon. There is evidence of colitis of the rectosigmoid colon with increased markings in the surrounding peritoneal fat. A small amount of fluid is seen in the pelvis. Appendix: The appendix is not identified. There is no inflammatory process identified in the right lower quadrant to suggest appendicitis. Lymph nodes: Unremarkable. Vasculature: Mild diffuse atherosclerotic calcifications are noted. Bones: Degenerative changes of the spine. CT/Abdomen/Pelvis W IV Cont ONLY IMPRESSION: Findings suggestive of colitis of the rectosigmoid colon with a small amount of free fluid in the pelvis. Large amount of fecal material is seen throughout the colon. Diffuse bladder wall thickening with evidence of enlargement of the prostate wi th indentation of the bladder base. Reading Location: [facility]
[2024-12-04] MEDS: 0.9% Normal Saline (1000mL) 1,000 ML 999 ML IV (10:35)
[2024-12-04 10:49] LABS: Absolute Lymphocyte Count 1.47 X10^3/uL (0.83-4.51); Basophil# 0.04 X10^3/uL; Basophil% 0.8 % (0-1); Eosinophil# 0.25 X10^3/uL; Eosinophils% 4.7 % (0-5); Hematocrit 36.5 % (40-54); Hemoglobin 12.7 g/dL (13.0-16.5); Lymphocyte # 1.47 X10^3/ul (0.83-4.51); Lymphocyte % 27.9 % (19-41); Mean Corp Hgb Conc 34.8 g/dL (32-36); Mean Corpuscular Hgb 32.6 pg (27.0-32.0); Mean Corpuscular Volume 93.6 fL (80-94); Mean Platelet Vol. 10.7 fl (6.2-12.0); Monocyte% 9.5 % (0-10); NRBC Flagged by Analyzer 0 % (0-5); Neutrophil % 56.9 % (47-70); Platelet Count 171 K/mm3 (150-450); RBC Distribution Width CV 13.4 % (11.6-14.6); RBC Distribution Width SD 45.7 fl (35.1-43.9); White Blood Count 5.3 K/mm3 (4.4-11.0)
[2024-12-04 10:50] LABS: Erythrocyte Sedimentation Rate 12 mm/hr (0-20)
[2024-12-04 11:16] LABS: AST(SGOT) 27 U/L (<=37); Alanine Aminotransfer ALT/SGPT 14 U/L (<=46); Alkaline Phosphatase 82 U/L (40-129); Anion Gap 11 (5-15); BUN 17 mg/dL (4-19); BUN/Creat Ratio 14.2 RATIO (10-20); Calcium,Total 9.2 mg/dL (7.6-11.0); Carbon Dioxide 23.6 mmol/L (21.0-32.0); Chloride 103 mmol/L (98-108); Creatinine, Serum 1.18 mg/dL (0.70-1.20); EST Glomerular Filtration Rate 61 (>60); Estimated Creatinine Clearance 48.55 ml/min (50-250); Globulin 2.7 g/dL (2.2-4.2); Glucose 97 mg/dL (70-99); Potassium 3.8 mmol/L (3.3-5.1); Protein, Total 6.7 g/dL (5.9-8.4); Sodium Level 137 mmol/L (133-145); Total Bilirubin 1.07 mg/dL (0.00-1.30)
[2024-12-04 11:38] LABS: Amylase 60 U/L (28-100); CRP < 3.00 mg/L (0.0-3.0); Lipase 62 U/L (13-75)
[2024-12-04 11:40] VITALS: BP 132/78; PULSE 80; RESP 18; O2SAT 98
[2024-12-04 12:06] VITALS: BP 132/78; PULSE 80; RESP 18; TEMP 37; O2SAT 98
== END 2024-12-04 12:12 | disposition home or self-care (01) ==
PROVIDERS: Emergency Provider Emergency Medicine; PCP Family Medicine; Visit Provider Emergency Medicine
DX: K52.9 Noninfective gastroenteritis and colitis, unspecified (principal); I48.0 Paroxysmal atrial fibrillation; Z87.891 Personal history of nicotine dependence; I10 Essential (primary) hypertension; R10.9 Unspecified abdominal pain; Z85.828 Personal history of other malignant neoplasm of skin; Z79.899 Other long term (current) drug therapy; N40.0 Benign prostatic hyperplasia without lower urinary tract symptoms
CPT/HCPCS: 74177; 80048; 80076; 82150; 83630; 83690; 85025; 85652; 86140; 87177; 87209; 87493; 87506; 96360; 99283; Q9967; A4216

== ENCOUNTER → 2024-12-09 | Outpatient (CLI) | payer MEDICARE, SELFPAY ==
[2024-12-11 07:08] LABS: Calprotectin, Stool 168 ug/g (0-120)
== END | disposition home or self-care (01) ==
LOC: LABSPEC 10:26
PROVIDERS: PCP Family Medicine; Referring Provider Nurse Practitioner Acute Care; Visit Provider Nurse Practitioner Acute Care
DX: R19.7 Diarrhea, unspecified (principal); R10.9 Unspecified abdominal pain; K59.00 Constipation, unspecified; Z83.79 Family history of other diseases of the digestive system
CPT/HCPCS: 83993

== ENCOUNTER → 2025-01-07 | Outpatient (CLI) | payer MEDICARE, SELFPAY ==
[2025-01-07 11:20] LABS: Hematocrit 37.5 % (40-54); Hemoglobin 12.7 g/dL (13.0-16.5); Immature Granulocytes Count 0.030 X10^3/uL (0.0-0.0); Mean Corp Hgb Conc 33.9 g/dL (32-36); Mean Corpuscular Volume 95.2 fL (80-94); Mean Platelet Vol. 10.9 fl (6.2-12.0); NRBC Flagged by Analyzer 0 % (0-5); Platelet Count 202 K/mm3 (150-450); RBC Distribution Width CV 13.0 % (11.6-14.6); RBC Distribution Width SD 45.7 fl (35.1-43.9); Red Blood Count 3.94 M/mm3 (4.6-6.2); White Blood Count 6.2 K/mm3 (4.4-11.0)
== END | disposition home or self-care (01) ==
LOC: LAB 10:00
PROVIDERS: PCP Family Medicine; Referring Provider Nurse Practitioner Acute Care; Visit Provider Nurse Practitioner Acute Care
DX: R42 Dizziness and giddiness (principal)
CPT/HCPCS: 36415; 85025

== ENCOUNTER 2025-01-15 15:47 | Inpatient (IN) | payer MEDICARE, SELFPAY ==
--- NOTE | 2025-01-14 10:37 | PAT.ANESEVAL ---
Pre-Assessment Diagnosis/Proposed Procedure Planned Operative Procedure(s): COLONOSCOPY Anesthesia History Anesthesia History - lead massage therapist: Anesthesia History - lead massage therapist Hx Hospitalization Yes: PACER 12/2901/14/25 10:14 Any Problems With Anesthesia No 01/14/25 10:14 Cholinesterase deficiency No 01/14/25 10:14 You/Your Family Experience No 01/14/25 10:14 fever (hyperthermia) with Relationship Recent Exposure to Contagious Disease Does patient have nerve No 01/14/25 10:14 stimulator Patient instructed to have device shut off --Does patient have Pacemaker or ICD? When Was Last Pacemaker Check QUESTION #4 FULL TEXT: You/Your Family Experience fever (hyperthermia) with Anesthesia Last Oral Intake Last Oral intake: Last Oral Intake NPO since Meds taken in AM with sips of water? Meds patient instructed to take am of surgery PONV PONV - lead massage therapist: PONV - lead massage therapist Female No 01/14/25 10:14 HX of Motion Sickness No 01/14/25 10:14 HX of N/V After Surgery No 01/14/25 10:14 Non-Smoker Yes 01/14/25 10:14 Duration of Surgery greater No 01/14/25 10:14 than 60 minutes Number of Risk Factors 1 01/14/25 10:14 PONV Score Low Risk 01/14/25 10:14 Height & Weight Height & Weight: Anesthesia: Height & Weight Height 6 ft 12/07/24 09:17 Respiratory Assessment Respiratory Assessment - lead massage therapist: Respiratory Tract Infection Hx - lead massage therapist Hx Respiratory Tract Infection No 01/14/25 10:14 STOP Sleep Apnea STOP Sleep Apnea - lead massage therapist: STOP Sleep Apnea - lead massage therapist Hx Hypertension Yes: CONTROLLED WITH MEDS 01/14/25 10:14 Hx Sleep Apnea No 01/14/25 10:14 CPAP BIPAP Do you snore loudly (louder No 01/14/25 10:14 than talking or can be heard Do you often feel tired/ No 01/14/25 10:14 fatigued/ sleepy during daytime? Has anyone observed you stop No 01/14/25 10:14 breathing during sleep? STOP Results Negative 01/14/25 10:14 QUESTION #5 FULL TEXT : Do you snore loudly (louder than talking or can be heard through closed doors)? 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 Specify any problems Hx of Preganancy in last 3 N/A 01/14/25 10:14 Months Nurse Filling Out Transfusion [email or web address] 01/14/25 10:14 & Questions: Date: 01/14/25 01/14/25 10:14 Time: 10:18 01/14/25 10:14 Patient unable to answer at this time (ie. confused, unrespo /Reproduction History /Reproductive History - lead massage therapist: /Reproductive Hx- lead massage therapist Hx Now Gestational Age (in weeks): EDC: Hx Hx Para Hx Section SAB PFSH Medical History (Updated 01/14/25 @ 10:25 by Antoine Leavitt) Wears glasses Wears hearing aid Arthritis [facility] Cardiology follow-up encounter History of echocardiogram History of stress test PAF (paroxysmal atrial fibrillation) Pain and swelling of left elbow Pain and swelling of forearm Presence of cardiac pacemaker Sick sinus syndrome Wenckebach Orthostatic hypotension Vitamin D deficiency Gilbert disease Sleep apnea BPH (benign prostatic hyperplasia) Erectile dysfunction Cerebral amyloid angiopathy Cerebral infarction, unspecified Brain bleed Hypertension COVID-19 Dementia Skin cancer (melanoma) Skin cancer Home Medications ?Medication ?Instructions ?Recorded ?Last Taken ?Type lisinopril 20 mg tablet 1 tab PO DAILY 12/24/21 12/03/24 History tamsulosin 0.4 mg capsule 0.4 mg PO DAILY 08/02/23 12/03/24 History hydrochlorothiazide 25 mg tablet 25 mg PO DAILY 08/28/23 12/03/24 History cholecalciferol (vitamin D3) 50 50 mcg PO DAILY 11/08/23 12/03/24 History mcg (2,000 unit) tablet methylcellulose (laxative) 1 ea PO DAILY 12/04/24 12/03/24 History linaclotide 145 mcg capsule 145 mcg PO QAM #30 caps 12/07/24 Unknown Rx (Linzess) peg 3350-electrolytes 236 240 ml PO Q10M #4,000 mL 12/07/24 Unknown Rx gram-22.74 gram-6.74 gram-5.86 gram solution (Golytely) donepezil 23 mg tablet (Aricept) 11.5 mg PO DAILY 01/14/25 Unknown History finasteride 5 mg tablet 5 mg PO DAILY 01/14/25 Unknown History Allergy/AdvReac Type Severity Reaction Status Date / Time No Known Allergies Allergy Verified 01/14/25 10:08 Family History Sister Heart disease Hypertension CVA (cerebral vascular accident) Brother Heart disease Father Heart disease Surgical History History of lumpectomy of left breast Social History Smoking Status: Former smoker how long ago did patient quit smokin years ago alcohol intake: never substance use type: does not use caffeine: Yes Type: coffee Number of servings: 1 Audit: Pertinent Findings Pertinent Findings EKG Perinent findings: November 08, 2023. Sinus bradycardia within normal limits. Stress test pertinent findings: 09/25/2023. EF 69%. No areas of reversibility noted to suggest ischemia. No previous infarct. Echo (EF%) pertinent findings: 08/23/2023. EF of 70%. Mild aortic stenosis. Consult pertinent findings: August 06, 2024. Ke MEI. 1. Cardiac pacemaker?acute-interrogation reveals atrial paced and ventricular sensed at 60 ppm. 2. Sick sinus syndrome?acute-patient now has a pacemaker. 3. Hypertension?[id number]. 4. Paroxysmal atrial fibrillation?acute-patient was not symptomatic with episode. Patient is to start aspirin. [id number] score is 3. Additional pertinent findings: 30-day event monitor. December 29, 2021. Sinus rhythm is predominant rhythm. 1 stable event during sinus rhythm. Recommendation Anesthesia Recommendation Anesthesia recommendation: OPTIMIZED for anesthesia
[2025-01-15] VITALS (10 sets, daily range): BP systolic 100–114; BP diastolic 54–66; PULSE 60–70; RESP 16–18; TEMP 36.2–36.6; O2SAT 95–100; BMI 21.7
--- NOTE | 2025-01-15 12:18 | PRE.ANES_ITS ---
ASA Classification* ASA Classification ASA Classification: 3 Assessment & Plan Anesthesia* Anesthesia Assessment Anesthesia Assessment: Discussed sedation and/or anesthesia options, risks, benefits, and alternatives with patient/parents/legal guardian/POA. Questions invited. The patient/parents/legal guardian/POA seems to understand and agrees to proceed with anesthesia plan. Reviewed the physical assessment, medical history, allergy history and patient home medications list prior to surgery/procedure/anesthetic and documented any changes. Performed airway and anesthesia risk assessments. Anesthesia Type Anesthesia Type: MAC Anesthesia Focused Assessment* Airway Assessment Mouth opens: >3 cm Mallampati Score: II Labs Anesthesia Preop lab: CBC WBC 6.2 K/mm3 (4.4-11.0) 01/07/25 10:01/07/25 RBC 3.94 M/mm3 (4.6-6.2) L 01/07/25 10:01/07/25 Hgb 12.7 g/dL (13.0-16.5) L 01/07/25 10: 5 Hct 37.5 % (40-54) L 01/07/25 10:01/07/25 Plt Count 202 K/mm3 (150-450) 01/07/25 10:01/07/25 CHEMISTRY Potassium 3.8 mmol/L (3.3-5.1) 12/04/24 10:12/04/24 Sodium 137 mmol/L (133-145) 12/04/24 10:12/04/24 Magnesium 1.8 mg/dL (1.6-2.6) 04/29/23 19:12 04/29/23 Phosphorus 3.1 mg/dL (2.5-4.9) 04/29/23 19:12 04/29/23 BUN 17 mg/dL (4-19) 12/04/24 10:12/04/24 Creatinine 1.18 mg/dL (0.70-1.20) 12/04/24 10:12/04/24 Glucose 97 mg/dL (70-99) 12/04/24 10:12/04/24 POC Glucose 101 mg/dL (70-110) 12/07/20 18:34 12/07/20 TSH 0.80 uIU/mL (0.358-3.74) 04/30/23 04:59 COAG PT 13.5 SECONDS (11.7-14.9) 12/07/20 18:47 Pre-Assessment Diagnosis/Proposed Procedure Planned Operative Procedure(s): COLONOSCOPY Anesthesia History Anesthesia History - fitter's assistant: Anesthesia History - fitter's assistant Hx Hospitalization Yes: PACER 12/2901/14/25 10:14 Any Problems With Anesthesia No 01/14/25 10:14 Cholinesterase deficiency No 01/14/25 10:14 You/Your Family Experience No 01/14/25 10:14 fever (hyperthermia) with Relationship Recent Exposure to Contagious Disease Does patient have nerve No 01/14/25 10:14 stimulator Patient instructed to have device shut off --Does patient have Pacemaker or ICD? When Was Last Pacemaker Check QUESTION #4 FULL TEXT: You/Your Family Experience fever (hyperthermia) with Anesthesia Last Oral Intake Last Oral intake: Last Oral Intake NPO since Meds taken in AM with sips of water? Meds patient instructed to take am of surgery PONV PONV - fitter's assistant: PONV - fitter's assistant Female No 01/14/25 10:14 HX of Motion Sickness No 01/14/25 10:14 HX of N/V After Surgery No 01/14/25 10:14 Non-Smoker Yes 01/14/25 10:14 Duration of Surgery greater No 01/14/25 10:14 than 60 minutes Number of Risk Factors 1 01/14/25 10:14 PONV Score Low Risk 01/14/25 10:14 Height & Weight Height & Weight: Anesthesia: Height & Weight Height 6 ft 12/07/24 09:17 Respiratory Assessment Respiratory Assessment - fitter's assistant: Respiratory Tract Infection Hx - fitter's assistant Hx Respiratory Tract Infection No 01/14/25 10:14 STOP Sleep Apnea STOP Sleep Apnea - fitter's assistant: STOP Sleep Apnea - fitter's assistant Hx Hypertension Yes: CONTROLLED WITH MEDS 01/14/25 10:14 Hx Sleep Apnea No 01/14/25 10:14 CPAP BIPAP Do you snore loudly (louder No 01/14/25 10:14 than talking or can be heard Do you often feel tired/ No 01/14/25 10:14 fatigued/ sleepy during daytime? Has anyone observed you stop No 01/14/25 10:14 breathing during sleep? STOP Results Negative 01/14/25 10:14 QUESTION #5 FULL TEXT : Do you snore loudly (louder than talking or can be heard through closed doors)? 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 Specify any problems Hx of Preganancy in last 3 N/A 01/14/25 10:14 Months Nurse Filling Out Transfusion [email or web address] 01/14/25 10:14 & Questions: Date: 01/14/25 01/14/25 10:14 Time: 10:18 01/14/25 10:14 Patient unable to answer at this time (ie. confused, unrespo /Reproduction History /Reproductive History - fitter's assistant: /Reproductive Hx- fitter's assistant Hx Now Gestational Age (in weeks): EDC: Hx Hx Para Hx Section SAB Active Medications Active Medications: Current Medications Generic Name Dose Route Start Last Admin Trade Name Freq PRN Reason Stop Dose Admin Lactated Ringer's 1,000 mls @ 15 mls/hr 01/15/25 12:15 IV .Q48H JOAQUIN PFSH Medical History Wears glasses Wears hearing aid Arthritis [facility] Cardiology follow-up encounter History of echocardiogram History of stress test PAF (paroxysmal atrial fibrillation) Pain and swelling of left elbow Pain and swelling of forearm Presence of cardiac pacemaker Sick sinus syndrome Wenckebach Orthostatic hypotension Vitamin D deficiency Gilbert disease Sleep apnea BPH (benign prostatic hyperplasia) Erectile dysfunction Cerebral amyloid angiopathy Cerebral infarction, unspecified Brain bleed Hypertension COVID-19 Dementia Skin cancer (melanoma) Skin cancer Home Medications ?Medication ?Instructions ?Recorded ?Last Taken ?Type lisinopril 20 mg tablet 1 tab PO DAILY 12/24/2101/05 History tamsulosin 0.4 mg capsule 0.4 mg PO DAILY 08/02/2305/01 History hydrochlorothiazide 25 mg tablet 25 mg PO DAILY 01/14/25 History cholecalciferol (vitamin D3) 50 50 mcg PO DAILY 01/14/25 History mcg (2,000 unit) tablet methylcellulose (laxative) 1 ea PO DAILY 12/04/2401/05 History linaclotide 145 mcg capsule 145 mcg PO QAM #30 caps 01/14/25 Rx (Linzess) peg 3350-electrolytes 236 240 ml PO Q10M #4,000 mL 09/01 Unknown Rx gram-22.74 gram-6.74 gram-5.86 gram solution (Golytely) donepezil 23 mg tablet (Aricept) 11.5 mg PO DAILY 01/0501/14/25 History finasteride 5 mg tablet 5 mg PO DAILY 01/14/2501/14 History Allergy/AdvReac Type Severity Reaction Status Date / Time No Known Allergies Allergy Verified 01/15/25 12:11 Family History Sister Heart disease Hypertension CVA (cerebral vascular accident) Brother Heart disease Father Heart disease Surgical History History of lumpectomy of left breast Social History Smoking Status: Former smoker how long ago did patient quit smokin years ago alcohol intake: never substance use type: does not use caffeine: Yes Type: coffee Number of servings: 1 Review of Systems (Anesthesia) ROS Narrative System reviewed and no additional complaints, except as documented.
--- NOTE | 2025-01-15 12:20 | PCM.HP.STD ---
HPI - General General Date of Admission: 01/15/25 Date of Service: 01/15/25 Chief Complaint: Abdominal pain with nausea, vomiting and dizziness HPI Narrative NADIR GARCIA, is a 84 M who presents for the chief Complaint: N/V, dizziness - mom with Ulcerative Colitis - Reports seeing a site promotion agent over the wintertime and has tried various diarrhea medications - He has never had a colonoscopy - Reports he has been unable to get a return call from previous site promotion agent he was seeing and has become frustrated - reports the blood in stool varies in quantity, mucus and blood, incontinence - states his symptoms are confusing because they vary so much - he shows me a picture of toilet tissue today with pinkish/red mucus - symptoms ongoing >6 months - stools can be in small pieces - c/o intermittent gas pains, feels like he needs to go but can't - waking in the middle of the night with urgency, incontinence, can be watery - he can go 3-4 days without a BM - denies any weight loss - Citrucel 1tbsp QD-BID - Miralax 17g - he is using inconsistently - Dicyclomine BID for stomach pain resumed 1 month ago - c/o increase in urinary frequency - frequent nocturia - denies any hematuria or dysuria 11/24/2024 negative for C. Diff, positive lactoferrin - stays active - denies any falls in the past year - he continues to drive [facility] Medical History Wears glasses Wears hearing aid Arthritis [facility] Cardiology follow-up encounter History of echocardiogram History of stress test PAF (paroxysmal atrial fibrillation) Pain and swelling of left elbow Pain and swelling of forearm Presence of cardiac pacemaker Sick sinus syndrome Wenckebach Orthostatic hypotension Vitamin D deficiency Gilbert disease Sleep apnea BPH (benign prostatic hyperplasia) Erectile dysfunction Cerebral amyloid angiopathy Cerebral infarction, unspecified Brain bleed Hypertension COVID-19 Dementia Skin cancer (melanoma) Skin cancer Home Medications ?Medication ?Instructions ?Recorded ?Last Taken ?Type lisinopril 20 mg tablet 1 tab PO DAILY 12/24/21 01/14/25 History tamsulosin 0.4 mg capsule 0.4 mg PO DAILY 08/02/23 01/14/25 History hydrochlorothiazide 25 mg tablet 25 mg PO DAILY 08/28/23 01/14/25 History cholecalciferol (vitamin D3) 50 50 mcg PO DAILY 11/08/23 01/14/25 History mcg (2,000 unit) tablet methylcellulose (laxative) 1 ea PO DAILY 12/04/24 01/14/25 History linaclotide 145 mcg capsule 145 mcg PO QAM #30 caps 12/07/24 01/14/25 Rx (Linzess) peg 3350-electrolytes 236 240 ml PO Q10M #4,000 mL 12/07/24 Unknown Rx gram-22.74 gram-6.74 gram-5.86 gram solution (Golytely) donepezil 23 mg tablet (Aricept) 11.5 mg PO DAILY 01/14/25 01/14/25 History finasteride 5 mg tablet 5 mg PO DAILY 01/14/25 01/14/25 History Allergy/AdvReac Type Severity Reaction Status Date / Time No Known Allergies Allergy Verified 01/15/25 12:11 Family History Sister Heart disease Hypertension CVA (cerebral vascular accident) Brother Heart disease Father Heart disease Surgical History History of lumpectomy of left breast Social History Smoking Status: Former smoker how long ago did patient quit smokin years ago alcohol intake: never substance use type: does not use caffeine: Yes Type: coffee Number of servings: 1 ROS Constitutional Constitutional: Denies fatigue, fever(s), poor appetite, weight gain or weight loss Gastrointestinal Gastrointestinal: Denies belching, bloating, change in bowel habits, change in stool character, chewing difficulty, coffee ground emesis, constipation, cramping, diarrhea, dyspepsia, dysphagia, early satiety, excessive flatus, fecal incontinence, heartburn, hematemesis, hematochezia, hemorrhoids, loose stools, melena, nausea, odynophagia, rectal bleeding, tenesmus, vomiting or weight changes Physical Exam Const alert, oriented x3 and no apparent distress General Appearance: cooperative HEENT hearing grossly normal bilaterally Head and Scalp: atraumatic Eyes EOMs intact bilaterally Neck General: normal visual inspection Chest inspection of chest normal and palpation of chest normal Resp normal respiratory effort Auscultation: clear to auscultation bilaterally Cardio regular rate, regular rhythm, S1 normal heart sound and S2 normal heart sound Jugular Venous Distention: JVD GI normal to inspection, nondistended, normoactive bowel sounds Extremity normal capillary refill and no pedal edema Peripheral Pulses: Yes pulses 2+ throughout and femoral pulses present Skin no rashes or lesions noted Neuro oriented x3 and CN's II-XII intact bilaterally Psych Appearance: grossly normal and appropriate Assessment & Plan Assessment/Plan (1) Abdominal pain: PLAN: Assessment and Plan Assessment and Plan (1) Abdominal pain: Status: Acute (2) Diarrhea: Status: Acute (3) Constipation: Status: Acute (4) Family history of ulcerative colitis: Status: Acute Orders: Orders Calprotectin, Stool Today K59.00 - Constipation, unspecified, R10.9 - Unspecified abdominal pain, R19.7 - Diarrhea, unspecified, Z83.79 - Family history of other diseases of the digestive system Medications: New peg 3350-electrolytes 236-22.74-6.74 -5.86 gram (Golytely) take as directed for split dose bowel prep 240 mL PO Q10M 4,000 mL 0RF linaclotide (Linzess) take 1 capsule daily, 30 minutes before breakfast 145 mcg PO QAM 30 caps 1RF Discontinued dicyclomine Discontinued Reason: Order Completed 20 mg PO BID Plan 84-year-old male presents for initial consultation. He was seen in the emergency department on 12/04/2024 with a chief complaint of mucous stools and abdominal pain. He had reported intermittent crampy abdominal pain for the past year, 10-15 bowel movements daily, and more recently has noticed blood in stools. Labs completed reveal no leukocytosis, stable anemia (hgb 12.7), normal CRP, amylase and lipase. CT abdomen and pelvis with IV contrast revealed a large amount of stool in the colon, evidence of colitis of the rectosigmoid colon with increased markings in the surrounding peritoneal fat, and a small amount of fluid seen in the pelvis. His family history is significant for mom with UC. CT also notes diffuse bladder wall thickening and prostate enlargement. He reports going up to 3-4 days without a bowel movement, and when he does pass stool it is typically loose/watery, occasional small pieces with urgency and episodes of fecal incontinence. We have discussed inportance of not limiting water intake due to urinary frequency as this is likely contributing to constipation. I have started him on Linzess 145mcg daily and scheduled him for a colonoscopy. He will keep us apprised of his symptoms. Note: [employer] speech recognition digital strategy director software was used to create portions of this document. Sound-alike and misspelled words, as well as other digital strategy director errors may be contained in the documentation. Patient Instructions: Discontinue dicyclomine, as this has not shown any improvement in symptoms Continue Citrucel once daily Discontinue use of Miralax Increase water intake Start Linzess Colonoscopy - GoLytely bowel prep Follow-up bladder/prostate findings with PCP
[2025-01-15] MEDS: Lactated Ringers 1,000 ML 15 ML IV (12:25)
--- NOTE | 2025-01-15 13:00 | COLBX_PTH ---
PATIENT: NADIR GARCIA LOC: [facility] U#:[id number] AGE/SX: 84/M ROOM: [facility] RE01/15/[address]: Dr. Jose Emmanuel DO : 1940 BED: 1 DIS: 01/17/2025 SPEC #: [id number] RECD: 01/15/25 15:08 STATUS: ELVIRA YOUNG #: [id number] GERMAINE: 01/15/25 13:[address]: Jose Emmanuel DEPT: SURGICAL PATHOLOGY RECD BY: Terrell Quintanilla ENTERED: 01/15/25 16:03 SP TYPE: COLON BX OT DR: Dr. Ted Brooks, DO Dr. Osbaldo Bennett MD Tissues: A - Rectum, NOS Procedures: Immunohistochemical Stains Surgery Specimen Level IV IHC Stain ADDITIONAL HEADER OPERATION: Incomplete colonoscopy, biopsy PRE-OP DIAGNOSIS: Abdominal pain, diarrhea, constipation, family history of ulcerative colitis TISSUE SUBMITTED: A- Rectosigmoid stricture biopsy MICROSCOPIC DIAGNOSIS A. Rectosigmoid colon, stricture, biopsy: - Adenocarcinoma. - IHC for mismatch repair proteins is PENDING and the findings will be reported in an addendum. MICROSCOPIC DESCRIPTION Slides are reviewed. GROSS DESCRIPTION A. Received in fixative is one container labeled with the patient's name and designated Rectosigmoid stricture biopsy. The specimen consists of multiple irregular fragments of light kenyon soft tissue that in aggregate measure 1.5 x 0.5 x 0.1 cm. The specimen is totally submitted in one cassette. IDRIS/ 01/15/2025 CPT:85189 ,[id number] ADDENDUM ADDENDUM ADDENDUM ADDENDUM ADDENDUM ADDENDUM ADDENDUM ADDENDUM ADDENDUM ADDENDUM ADDENDUM ADDENDUM ADDENDUM ADDENDUM ADDENDUM ADDENDUM ADDENDUM ADDENDUM ADDENDUM ADDENDUM ADDENDUM ADDENDUM ADDENDUM ADDENDUM ADDENDUM ADDENDUM ADDENDUM ADDENDUM ADDENDUM ADDENDUM ADDENDUM ADDENDUM ADDENDUM ADDENDUM ADDENDUM ADDENDUM ADDENDUM ADDENDUM ADDENDUM ADDENDUM 01/29/2025 08:23 ADDENDUM 01/29/2025 08:23 ADDENDUM 01/29/2025 08:23 ADDENDUM 01/29/2025 08:23 ADDENDUM 01/29/2025 08:23 This addendum is to report the IHC for mismatch repair proteins (MMR) performed at [facility]: Mismatch Repair Protein (MMR) Nuclear Expression by IHC: ? MLH1: ?Present/intact ? PMS2: ?Present/intact ? MSH2: ?Present/intact ? MSH6: ?Present/intact IHC Interpretation: No loss of nuclear expression of MMR proteins: low probability of microsatellite instability-high (MSI-H)# # There are exceptions to the above IHC interpretations. These results should not be considered in isolation, and clinical correlation with genetic counseling is recommended to assess the need for germline testing. All controls show appropriate reactivity. All immunohistochemistry, in situ hybridization, and histochemical tests were developed by and are performed at the [facility], [address] [place] [address], [place] [address]. All Immunofluorescent (IF) ?tests were developed by and are performed at the [facility], [address] [place] [address], [place], [place] ?[address]. All tests reported here, except those addressing HER2 overexpression as a predictive marker, have not been cleared by or approved by the [place] Food and Drug Administration (FDA). The laboratory is regulated under CLIA as qualified to perform high-complexity testing. The tests are used for clinical purposes. They should not be regarded as investigational or for research. The mismatch repair proteins are evaluated by immunohistochemistry on formalin-fixed, paraffin-embedded tissue, using clone [id number] for MLH1, clone [id number] for PMS2, clone RED2 for MSH2, and clone EP49 for MSH6, and Tissue [employer] Genie? Pro Detection Kit, DAB on the BrightFunnel Tissue [employer] Genie Advanced Staining System. Convincing nuclear staining in > 1% of tumor cells that is as strong as internal control is considered present/intact. Complete absence of nuclear staining in tumor cells in the presence of nuclear expression in internal control cells is considered absent/lost. Rarely a discrete area of a tumor can show loss of staining with retained nuclear expression in the adjacent tumor cells and internal control cells, which is regarded as subclonal loss and can also be of clinical significance.
--- NOTE | 2025-01-15 14:01 | OP.CCLET_ITS ---
01/15/2025 Osbaldo Bennett MD [address] [id number] Re : Colonoscopy procedure for Barilorne William Dear Dr. Bennett This procedure was performed on Wednesday, January 15, 2025. My impressions and recommendations are as follows: Impressions : - Preparation of the colon was fair. - Stricture in the sigmoid colon. Biopsied. Recommendations : - Discharge patient to home. - Resume previous diet. - Continue present medications. - Await pathology results. - Surgical consultation - No recommendation at this time regarding repeat colonoscopy due to age. My findings are described in the full procedure note, which is enclosed. If I can be of further assistance, please feel free to contact me at . Sincerely, Jose Emmanuel, 01/15/2025 2:00:45 PM This report has been signed electronically.
--- NOTE | 2025-01-15 14:01 | OP.COLON_ITS ---
Patient Name: Eduard Thomas Procedure Date: 01/15/2025 1:28 PM Date of : 1940 Age: 84 Procedure: Colonoscopy Indications: Abdominal pain in the left lower quadrant, Abnormal CT of the GI tract Providers: Jose Emmanuel DO Referring MD: Osbaldo Bennett MD Medicines: Monitored Anesthesia Care Patient Profile: This is an 84 year old male. Refer to note in patient chart for documentation of history and physical. Last Colonoscopy: date unknown. Complications: No immediate complications. Procedure: Pre-Anesthesia Assessment: - Prior to the procedure, a History and Physical was performed, and patient medications and allergies were reviewed. The patient is competent. The risks and benefits of the procedure and the sedation options and risks were discussed with the patient. All questions were answered and informed consent was obtained. Patient identification and proposed procedure were verified by the physician in the pre-procedure area. Mental Status Examination: alert and oriented. Airway Examination: normal oropharyngeal airway and neck mobility. Respiratory Examination: clear to auscultation. CV Examination: normal. Prophylactic Antibiotics: The patient does not require prophylactic antibiotics. Prior Anticoagulants: The patient has taken no anticoagulant or antiplatelet agents except for NSAID medication. ASA Grade Assessment: II - A patient with mild systemic disease. After reviewing the risks and benefits, the patient was deemed in satisfactory condition to undergo the procedure. The anesthesia plan was to use monitored anesthesia care (MAC). Immediately prior to administration of medications, the patient was re-assessed for adequacy to receive sedatives. The heart rate, respiratory rate, oxygen saturations, blood pressure, adequacy of pulmonary ventilation, and response to care were monitored throughout the procedure. The physical status of the patient was re-assessed after the procedure. After I obtained informed consent, the scope was passed under direct vision. Throughout the procedure, the patient's blood pressure, pulse, and oxygen saturations were monitored continuously. The Colonoscope was introduced through the anus and advanced to the sigmoid colon. The colonoscopy was technically difficult and complex due to abnormal anatomy, bowel stenosis and inadequate bowel prep. The patient tolerated the procedure well. The quality of the bowel preparation was fair. Scope In: 1:37:50 PM Scope Out: 1:52:03 PM Total Procedure Duration Time 0 hours 14 minutes 13 seconds Findings: The perianal and digital rectal examinations were normal. A malignant-appearing, intrinsic severe stenosis was found in the sigmoid colon at 20 cm and was non-traversed. Biopsies were taken with a cold forceps for histology. Verification of patient identification for the specimen was done. Estimated blood loss was minimal. Impression: - Preparation of the colon was fair. - Stricture in the sigmoid colon. Biopsied. Recommendation: - Discharge patient to home. - Resume previous diet. - Continue present medications. - Await pathology results. - Surgical consultation - No recommendation at this time regarding repeat colonoscopy due to age. Procedure Code(s): --- Professional --- 60474, 52, Colonoscopy, flexible; with biopsy, single or multiple CPT copyright 2021 [employer]. All rights reserved. The codes documented in this report are preliminary and upon pediatric physiatrist review may be revised to meet current compliance requirements. Jose Emmanuel DO 01/15/2025 2:00:45 PM This report has been signed electronically. Number of Addenda: 0 Note Initiated On: 01/15/2025 1:28 PM
--- NOTE | 2025-01-15 14:01 | PCM.POST.ANE ---
Anesthesia: Postop Eval I Current Vital Signs Temperature: 97.5 F Pulse Rate: 60 Blood Pressure: 105/60 Respiratory Rate: 16 Pulse Ox: 100 Oxygen Delivery Method: Room Air Assessment Airway patent: Yes Spontaneous unlabored respirations: Yes Mental status: Asleep nausea: No Vomiting: No Anesthesia Complication: No Fluid Hydration Crystalloid volume administer (ml): 400 Total IV fluid infused: 400 Progress Note Anesthesia document: Postop Eval 1 completed: Yes
--- NOTE | 2025-01-15 14:26 | PCM.POSTANE2 ---
Anesthesia Postop Eval I Sum Postop Eval Completion status Anesthesia document: Postop Eval 1 completed: Yes Anesthesia Postop Eval I Summary Anesthesia Postop Eval I Summary: Anesthesia Postop Eval I: Assessment Summary Airway patent Yes 01/15/25 14:09 [email or web address] Spontaneous unlabored Yes 01/15/25 14:09 [email or web address] respirations Mental status Asleep 01/15/25 14:09 [email or web address] nausea No 01/15/25 14:09 [email or web address] Vomiting No 01/15/25 14:09 [email or web address] Anesthesia Postop Eval I: Fluid Summary Crystalloid volume administer 400 01/15/25 14:09 [email or web address] (ml) Colloids volume administered ( ml) Blood Product volume administered (ml) Total IV fluid infused 400 01/15/25 14:09 [email or web address] Anesthesia Postop Eval I: Summary Notes Anesthesia Complication No 01/15/25 14:09 [email or web address] Anesthesia Complication Comment: Post-operative progress note Anesthesia: Postop Eval II Evaluation Mental status: Awake Pain Level: 0 nausea: No Vomiting: No
--- NOTE | 2025-01-15 15:06 | SUR.PHASEII ---
pt being admitted. Friend to speak to hospitalist
--- NOTE | 2025-01-15 15:57 | CT_ITS ---
PROCEDURE: ABDOMEN/PELVIS WITH CONTRAST 01/15/2025 REASON FOR EXAM: COLON MASS SIGMOID COLON TECHNIQUE: ABDOMEN/PELVIS WITH IV AND ORAL CONTRAST Coronal and Sagittal reconstruction series were provided. CONTRAST: Isovue-300 VOLUME: 98 mL One or more dose reduction techniques were used (e.g., Automated exposure control, adjustment of the mA and/or kV according to patient size, use of iterative reconstruction technique. RADIATION DOSE SUMMARY: CTDlvol: 13.3 mGy DLP: 576 mGycm COMPARISON: CT abdomen and pelvis on 12/04/2024 FINDINGS: Lung bases: Cardiac device wires are partially imaged. Aortic valvular and coronary artery calcifications. Liver: Normal size. No mass. Gallbladder: No calcified stones. Spleen: Normal size. Pancreas: Normal size without evidence of mass surrounding inflammation or ductal dilation. Adrenals: Unremarkable Kidneys: No calcified stone or hydronephrosis. Bladder: Mild circumferential wall thickening Reproductive Organs: Prostatomegaly with a few coarse calcifications Bowel: Oral contrast extends to the distal aspect of the descending colon. There is marked wall thickening with mild surrounding inflammatory stranding involving the sigmoid colon and rectum, similar to prior. Lymph nodes: No significant lymphadenopathy. Vasculature: Moderate diffuse atherosclerotic calcifications are noted. Bones: Degenerative changes of the spine. CT/Abdomen/Pelvis WITH Contrast IMPRESSION: Similar findings to CT performed 12/04/2024, including marked wall thickening o f the sigmoid colon and rectum, which may represent underlying mass as suggested in the given history, with proctosigmoid itis also possible. Oral contrast is not present in this location, limiting evaluation of luminal contents. Mild circumferential bladder wall thickening is also unchanged, and could be th e result of cystitis, bladder outlet obstruction, or malignant involvement (if this patient has known disease). Reading Location: [id number]
--- NOTE | 2025-01-15 16:06 | EX.PCM.CON.S ---
Assessment & Plan Assessment/Plan (1) Colonic obstruction: PLAN: Patient has sigmoid obstruction due to a mass. I would like to start by ordering a CT scan with oral and IV contrast to evaluate how much stool still left in the colon after his bowel prep. I would also like to keep the patient on clear liquids throughout the weekend. I discussed possibly performing a colostomy versus being able to remove the mass during a sigmoid colectomy. If the patient has a significant stool load then I would likely need to perform a colostomy. Tanner Myles MD Pager: [facility] [address] [place] [address], [address] [place] [address] Office: HPI Consult Data Date of Consult: 01/15/25 HPI Narrative HPI Narrative: NADIR GARCIA, is a 84 M who presents with constipation for colonoscopy. Colonoscopy revealed an obstructing mass in the sigmoid colon. Patient reports he has been having difficulty having bowel movements for several months. He had a CT scan in November that showed obstruction at the sigmoid colon. The obstruction was unable to be passed with the scope [facility] Medical History Wears glasses Wears hearing aid Arthritis [place] [facility] follow-up encounter History of echocardiogram History of stress test PAF (paroxysmal atrial fibrillation) Pain and swelling of left elbow Pain and swelling of forearm Presence of cardiac pacemaker Sick sinus syndrome Wenckebach Orthostatic hypotension Vitamin D deficiency Gilbert disease Sleep apnea BPH (benign prostatic hyperplasia) Erectile dysfunction Cerebral amyloid angiopathy Cerebral infarction, unspecified Brain bleed Hypertension COVID-19 Dementia Skin cancer (melanoma) Skin cancer Home Medications ?Medication ?Instructions ?Recorded ?Last Taken ?Type lisinopril 20 mg tablet 1 tab PO DAILY 12/24/21 01/14/25 History tamsulosin 0.4 mg capsule 0.4 mg PO DAILY 08/02/23 01/14/25 History hydrochlorothiazide 25 mg tablet 25 mg PO DAILY 08/28/23 01/14/25 History cholecalciferol (vitamin D3) 50 50 mcg PO DAILY 11/08/23 01/14/25 History mcg (2,000 unit) tablet methylcellulose (laxative) 1 ea PO DAILY 12/04/24 01/14/25 History linaclotide 145 mcg capsule 145 mcg PO QAM #30 caps 12/07/24 01/14/25 Rx (Linzess) peg 3350-electrolytes 236 240 ml PO Q10M #4,000 mL 12/07/24 Unknown Rx gram-22.74 gram-6.74 gram-5.86 gram solution (Golytely) donepezil 23 mg tablet (Aricept) 11.5 mg PO DAILY 01/14/25 01/14/25 History finasteride 5 mg tablet 5 mg PO DAILY 01/14/25 01/14/25 History Allergy/AdvReac Type Severity Reaction Status Date / Time No Known Allergies Allergy Verified 01/15/25 12:11 Family History Sister Heart disease Hypertension CVA (cerebral vascular accident) Brother Heart disease Father Heart disease Surgical History History of lumpectomy of left breast Social History Smoking Status: Former smoker how long ago did patient quit smokin years ago alcohol intake: never substance use type: does not use caffeine: Yes Type: coffee Number of servings: 1 ROS Constitutional Constitutional: Denies anorexia, chills or fatigue Eyes Eyes: Denies blurry vision ENT HEENT: Denies abnormal hearing Cardiovascular Cardiovascular: Denies chest pain Respiratory/Chest Respiratory/Chest: Denies cough Gastrointestinal Gastrointestinal: Reports abdominal pain and constipation; Denies nausea or vomiting Genitourinary Genitourinary: Denies change in urinary stream Musculoskeletal Musculoskeletal: Denies abnormal gait Integumentary Integumentary: Denies jaundice Physical Exam Const alert and oriented x3 HEENT normocephalic Head and Scalp: normal to inspection Eyes PERRL Chest inspection of chest normal Resp normal respiratory effort Cardio Rate: regular rate Rhythm: regular rhythm GI soft to palpation and non-tender Extremity normal to inspection
--- NOTE | 2025-01-15 16:54 | PCM.HP.STD ---
HPI - General General Date of Admission: 01/15/25 Date of Service: 01/15/25 Chief Complaint: Sigmoid colon stricture-probable colon cancer HPI Narrative NADIR GARCIA, is a 84 M who presents as a direct admission to the [facility] floor due to the need for further treatment for a sigmoid colon stricture that was detected during a colonoscope. Patient had been going through periods of constipation at home and had seen a sawmill hand previously who had not performed a colonoscopy, he was referred to Dr. Emmanuel to finish the colonoscopy today and a sigmoid colon stricture was detected which appeared to be a neoplasm. General surgery was contacted and suggested the patient be admitted to the hospital for further testing and surgery. At the time of this dictation, we do not have any labs on the patient and CT of the abdomen and pelvis will be pending. Patient has a history of dementia and hypertension as well as BPH. I talked at length with the patient's , she wants the patient to be full code-I think it is appropriate. Patient was admitted to PCU under [facility] status, he will be seen by general surgery and labs and imaging studies will be obtained. It is unknown when the patient will undergo surgery. FOR[facility]LY [facility] Medical History Wears glasses Wears hearing aid Arthritis [place] Cardiology follow-up encounter History of echocardiogram History of stress test PAF (paroxysmal atrial fibrillation) Pain and swelling of left elbow Pain and swelling of forearm Presence of cardiac pacemaker Sick sinus syndrome [place]enckebach Orthostatic hypotension Vitamin D deficiency Gilbert disease Sleep apnea BPH (benign prostatic hyperplasia) Erectile dysfunction Cerebral amyloid angiopathy Cerebral infarction, unspecified Brain bleed Hypertension COVID-19 Dementia Skin cancer (melanoma) Skin cancer Home Medications ?Medication ?Instructions ?Recorded ?Last Taken ?Type lisinopril 20 mg tablet 1 tab PO DAILY 12/24/21 01/14/25 History tamsulosin 0.4 mg capsule 0.4 mg PO DAILY 08/02/23 01/14/25 History hydrochlorothiazide 25 mg tablet 25 mg PO DAILY 08/28/23 01/14/25 History cholecalciferol (vitamin D3) 50 50 mcg PO DAILY 11/08/23 01/14/25 History mcg (2,000 unit) tablet methylcellulose (laxative) 1 ea PO DAILY 12/04/24 01/14/25 History linaclotide 145 mcg capsule 145 mcg PO QAM #30 caps 12/07/24 01/14/25 Rx (Linzess) peg 3350-electrolytes 236 240 ml PO Q10M #4,000 mL 12/07/24 Unknown Rx gram-22.74 gram-6.74 gram-5.86 gram solution (Golytely) donepezil 23 mg tablet (Aricept) 11.5 mg PO DAILY 01/14/25 01/14/25 History finasteride 5 mg tablet 5 mg PO DAILY 01/14/25 01/14/25 History Allergy/AdvReac Type Severity Reaction Status Date / Time No Known Allergies Allergy Verified 01/15/25 12:11 Family History Sister Heart disease Hypertension CVA (cerebral vascular accident) Brother Heart disease Father Heart disease Surgical History History of lumpectomy of left breast Social History Smoking Status: Former smoker how long ago did patient quit smokin years ago alcohol intake: never substance use type: does not use caffeine: Yes Type: coffee Number of servings: 1 ROS ROS Narrative Patient has a history of dementia, medical history was obtained from the patient's Constitutional Constitutional: Denies anorexia, change in weight, fever(s), night sweats or weakness Eyes Eyes: Denies blurry vision, change in vision, discharge from eye(s) or eye pain Cardiovascular Cardiovascular: Denies chest pain, claudication, edema or palpitations Respiratory/Chest Respiratory/Chest: Denies cough, hemoptysis, shortness of breath at rest or shortness of breath with exertion Gastrointestinal Gastrointestinal: Denies abdominal pain, constipation, diarrhea, hematemesis, hematochezia, melena, nausea or vomiting Genitourinary Genitourinary: Denies dysuria, hematuria, urinary frequency, urinary hesitancy, urinary incontinence or urinary urgency Musculoskeletal Musculoskeletal: Denies back pain, joint pain, joint stiffness, joint swelling, myalgias or neck pain Neurologic Neurologic: Denies abnormal gait, abnormal speech, dizziness, focal weakness, headache(s), loss of vision, numbness, other visual disturbances, paresthesias, syncope or tingling Psychiatric Psychiatric: Denies anxiety, cognitive impairment, depression, irritability, mood swings or suicidal ideation Endocrine Endocrinology: Denies change in body appearance, cold intolerance, excessive sweating, heat intolerance, polydipsia or polyuria Hematologic/Lymphatic Hematologic/Lymphatic: Denies none, anemia, easy bleeding, easy bruising or lymphadenopathy Allergic/Immunologic Allergic/Immunologic: Denies rhinitis, urticaria, eczemia or asthma Vital Signs Vital Signs Vital Signs: 01/15/25 12:19 01/15/25 12:19 01/15/25 13:57 Temperature 97.9 F 97.5 F L Temperature Source Temporal Temporal Pulse Rate 60 60 Respiratory Rate 16 16 Respiratory Pattern Normal Normal Blood Pressure 104/59 L 105/60 Blood Pressure Mean 74 75 Blood Pressure Source Monitor Monitor Blood Pressure Position Semi-Fowlers Left Lateral Blood Pressure Location Right Arm Left Arm Baseline BP 104/59 Pulse Ox 95 97 Oxygen Delivery Method Room Air Room Air 01/15/25 14:00 01/15/25 14:05 01/15/25 14:09 Temperature 97.5 F L Temperature Source Pulse Rate 60 60 60 Respiratory Rate 16 16 16 Respiratory Pattern Blood Pressure 102/60 100/66 105/60 Blood Pressure Mean 74 77 Blood Pressure Source Monitor Monitor Blood Pressure Position Left Lateral Left Lateral Blood Pressure Location Left Arm Left Arm Baseline BP 104/59 104/59 Pulse Ox 98 98 100 Oxygen Delivery Method Room Air Room Air Room Air 01/15/25 14:10 01/15/25 14:15 01/15/25 14:35 Temperature 97.2 F L Temperature Source Temporal Pulse Rate 70 63 Respiratory Rate 16 16 Respiratory Pattern Normal Blood Pressure 105/54 L 105/59 L Blood Pressure Mean 71 74 Blood Pressure Source Monitor Monitor Blood Pressure Position Left Lateral Left Lateral Blood Pressure Location Left Arm Left Arm Baseline BP 104/59 104/59 Pulse Ox 98 99 Oxygen Delivery Method Room Air Room Air 01/15/25 15:24 Temperature Temperature Source Pulse Rate Respiratory Rate Respiratory Pattern Blood Pressure Blood Pressure Mean Blood Pressure Source Blood Pressure Position Blood Pressure Location Baseline BP 104/59 Pulse Ox Oxygen Delivery Method Weight Weight: 72.575 kg Body Mass Index (BMI) 21.7 Physical Exam Const alert, no apparent distress and healthy appearing General Appearance: cooperative, well kempt and well developed Orientation / Consciousness: awake, oriented to person and oriented to place HEENT normocephalic, head/scalp atraumatic, hearing grossly normal bilaterally and moist oral mucous membranes Eyes PERRL, EOMs intact bilaterally and conjunctivae normal Neck supple, no JVD, thyroid normal and no carotid bruits General: trachea midline Resp normal respiratory effort, no retractions, no use of accessory muscles and clear to auscultation bilaterally Auscultation: Negative for rales, rhonchi or wheezes Cardio regular rate, regular rhythm, S1 normal heart sound, S2 normal heart sound, no murmurs, no rub and no gallops GI normal to inspection, nondistended, normoactive bowel sounds, soft to palpation, non-tender and non-distended Extremity no clubbing, cyanosis or edema Skin no rashes or lesions noted General Skin Exam: no breakdown Neuro CN's II-XII intact bilaterally, moves all extremities, no focal motor deficits and no sensory deficits noted Sensorium / Orientation: awake, alert, oriented to person and oriented to place Speech: speech normal Psych affect normal Assessment & Plan Assessment/Plan (1) Colonic obstruction: PLAN: Plan 1. Colonic obstruction in the sigmoid colon from neoplasm-patient was admitted to [facility] status on PCU, he will be seen by general surgery, labs will be obtained, patient will be on clear liquids and blood pressure medications and prostate medications will be given #2 essential hypertension-patient will remain on his home blood pressure medication #3 BPH-patient will remain on his medication #4 dementia-patient takes Aricept-he will remain on this medication Total clinical time spent by myself addressing the patient's medical issues, reviewing all of his data, and collaborating with patient's care team: 55 minutes Charges/Coding Visit Charges Inpatient E&M: 17362 Init Hosp L2
[2025-01-15 17:28] LABS: Hematocrit 37.0 % (40-54); Hemoglobin 12.7 g/dL (13.0-16.5); Immature Granulocytes Count 0.010 X10^3/uL (0.0-0.0); Mean Corp Hgb Conc 34.3 g/dL (32-36); Mean Corpuscular Volume 93.4 fL (80-94); Mean Platelet Vol. 10.6 fl (6.2-12.0); NRBC Flagged by Analyzer 0 % (0-5); Platelet Count 175 K/mm3 (150-450); RBC Distribution Width CV 12.8 % (11.6-14.6); RBC Distribution Width SD 44.1 fl (35.1-43.9); Red Blood Count 3.96 M/mm3 (4.6-6.2); White Blood Count 4.9 K/mm3 (4.4-11.0)
[2025-01-15 17:52] LABS: AST(SGOT) 32 U/L (<=37); Alanine Aminotransfer ALT/SGPT 18 U/L (<=46); Albumin, Serum 4.0 g/dL (3.4-4.8); Alkaline Phosphatase 82 U/L (40-129); Anion Gap 11 (5-15); BUN 15 mg/dL (4-19); BUN/Creat Ratio 12.1 RATIO (10-20); Calcium,Total 9.2 mg/dL (7.6-11.0); Carbon Dioxide 27.6 mmol/L (21.0-32.0); Chloride 96 mmol/L (98-108); Estimated Creatinine Clearance 46.65 ml/min (50-250); Globulin 2.7 g/dL (2.2-4.2); Glucose 134 mg/dL (70-99); Potassium 3.5 mmol/L (3.3-5.1)
[2025-01-15] MEDS: 0.9% Normal Saline (1000mL) 1,000 ML 75 ML IV (19:04)
[2025-01-15] MEDS: Heparin Injection (Vial) 5,000 UNIT/ML VIAL 5000 UNIT SC (20:44)
[2025-01-16 04:33] VITALS: BP 125/60; PULSE 61; RESP 16; TEMP 36.6; O2SAT 97
[2025-01-16] MEDS: 0.9% Normal Saline (1000mL) 1,000 ML 75 ML IV (06:46)
--- NOTE | 2025-01-16 08:25 | PN.SURG_ITS ---
Subjective Subjective Patient is comfortable with no issues overnight Objective Data Objective Data Vital Signs: Vital Signs Temp Pulse Resp BP Pulse Ox O2 Del Method 97.9 F 61 16 125/60 H 97 Room Air 01/16/25 04:33 01/16/25 04:33 01/16/25 04:33 01/16/25 04:33 01/16/25 04:33 01/16/25 04:33 Oxygen Delivery Method Room Air Weight: 160 lb Body Mass Index (BMI) 21.7 Intake & Output: Intake and Output for Last 24 Hours 01/14/25 01/15/25 01/16/25 23:59 23:59 23:59 Intake Total 485 / 485 877.5 / 877.5 Output Total 2 / 2 Balance 483 / 483 877.5 / 877.5 Lab / Micro Data 01/15/25 17:10 01/15/25 17:10 Labs: Laboratory Results - last 24 hr 01/15/25 17:10: WBC 4.9, RBC 3.96 L, Hgb 12.7 L, Hct 37.0 L, MCV 93.4, MCH 32.1 H, MCHC 34.3, RDW Std Deviation 44.1 H, RDW Coeff of [place] 12.8, Plt Count 175, MPV 10.6, Immature Gran % (Auto) 0.200, Neut % (Auto) 66.8, Lymph % (Auto) 22.5, [place] % (Auto) 8.7, Eos % (Auto) 1.2, Baso % (Auto) 0.6, Absolute Neuts (auto) 3.3, Absolute Lymphs (auto) 1.11, Nucleated RBC % 0, Sodium 134, Potassium 3.5, Chloride 96 L, Carbon Dioxide 27.6, Anion Gap 11, BUN 15, Creatinine 1.21 H, E stim Creat Clear Calc 46.65 L, Est GFR (MDRD) Non-Af 59 L, BUN/Creatinine Ratio 12.1, Glucose 134 H, Calcium 9.2, Total Bilirubin 0.98, AST 32, ALT 18, Alkaline Phosphatase 82, Total Protein 6.7, Albumin 4.0, Globulin 2.7, Albumin/Globulin Ratio 1.5 Radiography Diagnostic Testing: Radiology Impression Abdomen/Pelvis CT 01/15/25 15:57 IMPRESSION: Similar findings to CT performed 12/04/2024, including marked wall thickening of the sigmoid colon and rectum, which may represent underlying mass as suggested in the given history, with proctosigmoiditis also possible. Oral contrast is not present in this location, limiting evaluation of luminal contents. Mild circumferential bladder wall thickening is also unchanged, and could be the result of cystitis, bladder outlet obstruction, or malignant involvement (if this patient has known disease). Reading Location: [facility] Physical Exam Const oriented x3 and no apparent distress Resp normal respiratory effort GI soft to palpation and non-tender Assessment & Plan Assessment/Plan (1) Colonic obstruction: PLAN: The patient has a near obstructing mass of the sigmoid colon at the sigmoid rectal junction. I reviewed his CAT scan from last night and there is no sign of metastatic disease and it appears the patient was well-prepped with no stool in the colon. Due to the proximity of the anus and how low this masses I would recommend transfer to tertiary center with a colorectal service. I discussed this with Dr. Martin at [facility] who accepted the patient and agreed to transfer. I discussed this with the patient and the patient's son and they are all in agreement. Tanner Myles MD Pager: [facility] [address] [place] [address], [address] [place] [address] Office:
[2025-01-16 10:59] VITALS: BP 163/74; PULSE 63; RESP 16; TEMP 36.9; O2SAT 96; BMI 21.2
[2025-01-16] MEDS: Heparin Injection (Vial) 5,000 UNIT/ML VIAL 5000 UNIT SC ×2 (11:03→20:45)
[2025-01-16 16:18] VITALS: BP 140/69; PULSE 60; RESP 16; TEMP 36.9; O2SAT 95
--- NOTE | 2025-01-16 18:59 | PN.HOSP_ITS ---
Reason for Visit Reason for Visit: Diagnoses Unspecified intestinal obstruction, unspecified as to partial versus complete obstruction (01/15/25) Unspecified abdominal pain (01/15/25) Subjective Subjective Patient was seen and examined today, I talked with general surgery briefly about his care and general surgery recommends that he be transferred to tertiary care hospital-[facility]-for further care due to probable extension of his probable colon cancer into the rectal area. Objective Data Objective Data Vital Signs: Vital Signs Temp Pulse Resp BP Pulse Ox O2 Del Method 98.4 F 60 16 140/69 H 95 Room Air 01/16/25 16:18 01/16/25 16:18 01/16/25 16:18 01/16/25 16:18 01/16/25 16:18 01/16/25 16:18 Oxygen Delivery Method Room Air Weight: 71 kg Body Mass Index (BMI) 21.2 Intake & Output: Intake and Output for Last 24 Hours 01/14/25 01/15/25 01/16/25 23:59 23:59 23:59 Intake Total 485 / 485 2205.0 / 2205.0 Output Total 2 / 2 Balance 483 / 483 2205.0 / 2205.0 Lab / Micro Data 01/15/25 17:10 01/15/25 17:10 Radiography Diagnostic Testing: Radiology Impression Abdomen/Pelvis CT 01/15/25 15:57 IMPRESSION: Similar findings to CT performed 12/04/2024, including marked wall thickening of the sigmoid colon and rectum, which may represent underlying mass as suggested in the given history, with proctosigmoiditis also possible. Oral contrast is not present in this location, limiting evaluation of luminal contents. Mild circumferential bladder wall thickening is also unchanged, and could be the result of cystitis, bladder outlet obstruction, or malignant involvement (if this patient has known disease). Reading Location: [id number] Physical Exam Narrative alert, no apparent distress and healthy appearing General Appearance: cooperative, well kempt and well developed Orientation / Consciousness: awake, oriented to person and oriented to place HEENT normocephalic, head/scalp atraumatic, hearing grossly normal bilaterally and moist oral mucous membranes Eyes PERRL, EOMs intact bilaterally and conjunctivae normal Neck supple, no JVD, thyroid normal and no carotid bruits General: trachea midline Resp normal respiratory effort, no retractions, no use of accessory muscles and clear to auscultation bilaterally Auscultation: Negative for rales, rhonchi or wheezes Cardio regular rate, regular rhythm, S1 normal heart sound, S2 normal heart sound, no murmurs, no rub and no gallops GI normal to inspection, nondistended, normoactive bowel sounds, soft to palpation, non-tender and non-distended Extremity no clubbing, cyanosis or edema Skin no rashes or lesions noted General Skin Exam: no breakdown Neuro CN's II-XII intact bilaterally, moves all extremities, no focal motor deficits and no sensory deficits noted Sensorium / Orientation: awake, alert, oriented to person and oriented to place Speech: speech normal Psych affect normal Assessment & Plan Assessment/Plan (1) Colonic obstruction: PLAN: Plan 1. Colonic obstruction in the sigmoid colon from neoplasm-we are currently awaiting confirmation on a bed at [facility] For the patient be transferred there for further care. I talked at length with the patient's family members concerning possible scenarios of treatment for the patient. #2 essential hypertension-patient will remain on his home blood pressure medication #3 BPH-patient will remain on his medication #4 dementia-patient takes Aricept-he will remain on this medication Total clinical time spent by myself addressing the patient's medical issues, reviewing all of his data, and collaborating with patient's care team: 35 minutes Charges/Coding Visit Charges Inpatient E&M: 08950 Subs Hosp L2
[2025-01-16 20:00] VITALS: BP 151/80; PULSE 59; RESP 18; TEMP 36.1; O2SAT 93
[2025-01-17 02:00] VITALS: BP 144/71; PULSE 61; RESP 18; TEMP 36.2; O2SAT 93
[2025-01-17 07:45] VITALS: BP 157/73; PULSE 60; RESP 18; TEMP 36.4; O2SAT 95
[2025-01-17] MEDS: Heparin Injection (Vial) 5,000 UNIT/ML VIAL 5000 UNIT SC (07:54)
[2025-01-17 14:20] VITALS: BP 146/68; PULSE 59; RESP 18; TEMP 36.4
--- NOTE | 2025-01-17 14:37 | NURSING ---
Report called to Adiel at [facility] [phone]. Pt will be picked up at 15:00.
--- NOTE | 2025-01-25 08:28 | DS.PCM_ITS ---
Providers Date of Admission: 01/15/25 Date of Discharge: 01/17/25 Primary Care Physician: Dr. Osbaldo Bennett MD Consultations 01/15/25 16:43 Consult: General Surgery Routine Consulting Provider: Tanner Myles Reason for Consult: Sigmoid stricture-possible cancer EMERGENT Consult: No MD Notified: Yes Date Notified: 01/15/25 Time Notified: 15:52 Method of Notification: Verbal Diagnosis Discharge Diagnosis (1) Colonic obstruction: Status: Acute Code(s): K56.609 - Unspecified intestinal obstruction, unspecified as to partial versus complete obstruction Plan 1. Colonic obstruction in the sigmoid colon from neoplasm-we are currently awaiting confirmation on a bed at [facility] For the patient be transferred there for further care. I talked at length with the patient's family members concerning possible scenarios of treatment for the patient. #2 essential hypertension-patient will remain on his home blood pressure medication #3 BPH-patient will remain on his medication #4 dementia-patient takes Aricept-he will remain on this medication Total clinical time spent by myself addressing the patient's medical issues, reviewing all of his data, and collaborating with patient's care team: 35 minutes Medications at Discharge Home Medications lisinopril 20 mg tablet 1 tab PO DAILY 12/24/21 tamsulosin 0.4 mg capsule 0.4 mg PO DAILY 08/02/23 hydrochlorothiazide 25 mg tablet 12.5 mg PO DAILY swelling 08/28/23 cholecalciferol (vitamin D3) 50 mcg (2,000 unit) tablet 50 mcg PO DAILY 11/08/23 methylcellulose (laxative) 1 ea PO DAILY 12/04/24 linaclotide 145 mcg capsule (Linzess) 145 mcg PO QAM #30 caps 12/07/24 peg 3350-electrolytes 236 gram-22.74 gram-6.74 gram-5.86 gram solution (Golytely) 240 ml PO Q10M #4,000 mL 12/07/24 donepezil 23 mg tablet (Aricept) 10 mg PO DAILY memory 01/14/25 finasteride 5 mg tablet 5 mg PO DAILY 01/14/25 Hospital Course Operations None Procedures None Summary of Care Provided Minutes Spent on Discharge: 30 Hospital Course: This 84-year-old white male was directly admitted to [facility] after undergoing a colonoscopy which showed an obstructing lesion in the sigmoid colon. It was felt that this obstructing lesion was a neoplasm, patient was admitted to PCU and seen in consultation by general surgery. Imaging studies were obtained and it was felt that the neoplasm was close to the anus and it was recommended by general surgery the patient be transferred to tertiary facility that had colorectal surgery. [facility] was contacted by general surgery and they agreed to take the patient in transfer. On 01/17/2025, patient was seen and examined: On examination he appeared in good health and spirits. Vital signs as documented. Skin warm and dry and without overt rashes. Neck without JVD, neck was supple, trachea midline, thyroid was normal. Lungs clear bilaterally, normal air movement was noted. Heart exam notable for regular rhythm, normal sounds and absence of murmurs, rubs or gallops. Abdomen unremarkable and without evidence of organomegaly, masses, or abdominal aortic enlargement. Bowel sounds are present, abdomen is not distended. Extremities nonedematous, no cyanosis was noted, no clubbing was noted. Neuro: Cranial nerves II through XII are grossly intact, no focal motor deficits were noted, sensation to light touch and pinprick intact, motor exam 5/5 throughout. Psych: Patient is alert and oriented x3, he does not appear anxious or depressed, he does not appear agitated. Patient was stable for transfer to [facility] for further care on 01/17/2025. Weight / BMI Weight Weight: 71 kg Body Mass Index (BMI) 21.2 ABG / Lab / Microbiology Data 01/15/25 17:10 01/15/25 17:10 D/C Instructions DC O2, CPAP, BIPAP Needs Home O2 Discharge instructions: No Meaningful Use Info Meaningful Use Meaningful Use Diagnoses (Choose all that apply): None applicable Discharge Plan Admission Admit Date/Time: 01/15/25 15:47 Attending Provider: Jose Emmanuel Primary Care Provider: Osbaldo Bennett Consulting Providers: Ted Brooks; Tanner Myles Discharge Orders/Prescriptions Prescriptions: No Action tamsulosin 0.4 mg capsule 0.4 mg PO DAILY Patient Comments: TAKE 1 CAPSULE BY MOUTH ONCE DAILY hydrochlorothiazide 25 mg tablet 12.5 mg PO DAILY cholecalciferol (vitamin D3) 50 mcg (2,000 unit) tablet 50 mcg PO DAILY peg 3350-electrolytes [Golytely] 236-22.74-6.74 -5.86 gram recon soln 240 ml PO Q10M Qty: 4000 0RF Rx Instructions: take as directed for split dose bowel prep Linzess 145 mcg capsule 145 mcg PO QAM Qty: 30 1RF Rx Instructions: take 1 capsule daily, 30 minutes before breakfast lisinopril 20 mg tablet 1 tab PO DAILY Patient Comments: TAKE 1 TABLET BY MOUTH ONCE DAILY methylcellulose (laxative) [Citrucel] 1 ea PO DAILY donepezil [Aricept] 23 mg tablet 10 mg PO DAILY finasteride 5 mg tablet 5 mg PO DAILY Referrals / Follow Up: Osbaldo Bennett MD [Primary Care Provider] - Disposition Disposition (needs filled in before D/C Order can be placed): Acute Care Hospital Charges/Coding Visit Charges Inpatient E&M: 48839 Disch Hosp
== END 2025-01-17 15:14 | disposition short-term general hospital (02) | DRG 375 ==
LOC: EN 16:09 → PCU 16:09
PROVIDERS: Internal Medicine; Admitting Provider Internal Medicine Gastroenterology; PCP Family Medicine; Referring Provider Family Medicine; Visit Provider Internal Medicine Gastroenterology
PROC: 0DJD8ZZ Inspection of Lower Intestinal Tract, Via Natural or Artificial Opening Endoscopic (ICD-10-PCS; CPT 45378; principal; 2025-01-15 12:55)
DX: C19 Malignant neoplasm of rectosigmoid junction (principal); K56.699 Other intestinal obstruction unspecified as to partial versus complete obstruction; F03.90 Unspecified dementia, unspecified severity, without behavioral disturbance, psychotic disturbance, mood disturbance, and anxiety; I10 Essential (primary) hypertension; N40.1 Benign prostatic hyperplasia with lower urinary tract symptoms; R35.0 Frequency of micturition; R35.1 Nocturia; Z79.899 Other long term (current) drug therapy; Z87.891 Personal history of nicotine dependence; Z86.16 Personal history of COVID-19; Z83.79 Family history of other diseases of the digestive system
CPT/HCPCS: 36415; 74177; 80053; 85025; 88305; 88341; 88342; Q9967; A4216; J2405

== ENCOUNTER → 2025-04-01 | Outpatient (CLI) | payer MEDICARE, SELFPAY ==
[2025-04-01 12:52] LABS: Cholesterol 222 mg/dL (<=200); Low Density Lipoprotein Calc. 124 mg/dL; PSA,Total - Annual Screen 1.43 ng/mL (0.02-4.00); Triglycerides 140 mg/dL; Very Low Density Lipoprotein 28 mg/dL (5-40); cholesterol:hdl ratio screen 3.15
== END | disposition home or self-care (01) ==
LOC: MFPLAB 09:53
PROVIDERS: PCP Family Medicine; Visit Provider Family Medicine
DX: N40.0 Benign prostatic hyperplasia without lower urinary tract symptoms (principal); I10 Essential (primary) hypertension; Z12.5 Encounter for screening for malignant neoplasm of prostate
CPT/HCPCS: 36415; 80061; 84153; G0103